=== PATIENT | male | born 1940 | race Caucasian/White ===

== ENCOUNTER → 2020-07-29 08:22 | Outpatient (REF) | payer MEDICARE, OTHER, SELFPAY ==
--- NOTE | 2020-07-29 | NM_ITS ---
EXERCISE MYOCARDIAL PERFUSION STUDY INDICATION: NSVT, pacemaker, assess for coronary disease and ischemia TECHNIQUE: The patient was brought in for an exercise perfusion study on 07/29/2020. Patient performed exercise as per Ralph protocol and was injected 40 mCi of sestamibi once target heart rate was achieved. Images were obtained using the SPECT gamma camera interlaced with the gating device. Images were obtained in supine position. Resting perfusion study was performed on 07/30/2020. Patient was administered 40 mCi of sestamibi intravenously at rest. Images were then obtained in supine position. Total DLP 77mGy-cm. Images were processed with the software and compared side to side in short axis, horizontal long axis and vertical long axis views. FINDINGS: Raw images were reviewed. The stress perfusion study showed diminished tracer uptake along the inferior wall. With CT attenuation correction this seems to improve significantly suggestive of diaphragmatic attenuation artifact. The gated study shows normal LV systolic function with calculated LVEF of 67%. LV cavity is normal in size. The gated study shows normal wall thickening and contraction of segments. Resting study shows diminished tracer uptake along the inferior wall but improvement with CT attenuation correction suggesting definite hepatic artifact. Gating at rest reveals normal wall motion with ejection fraction at 63%. The findings are consistent with no reversible defects. Fixed inferior wall defect likely from traumatic artifact. IMPRESSION: 1. Myocardial perfusion imaging study shows no evidence of any ischemia. Fixed inferior perfusion defect likely from diaphragmatic attenuation artifact. 2. Gated LVEF is 67% during stress and 63% during rest. 3. Transient ischemic dilatation not present. EKG component of the test reported separately.
--- NOTE | 2020-07-29 08:34 | CA_ITS ---
Transthoracic Echocardiogram Patient (Last, First, Middle): Ricardo Singh S Gender: Male Date of : 1940 Age: 79 Procedure Date: 07/29/2020 Procedure Type: Transthoracic Echocardiogram Location: OP Height: 187.96 cm Weight: 108.86 kg BSA: 2.35 m2 Heart Rate: bpm BP: 118 / 62 mmHg Answering Service Telephone Operator: DUNG Referring MD: Jade Chowdary MEAT SMOKERBarbie Symptoms: -147.2 NSVT(nonsustained ventricular tachycardia Study Quality: Fair ECG Rhythm: Sinus Conclusions: - The left ventricular systolic function is normal. The visually estimated ejection fraction is between 60-65%. - There is mild calcification of the aortic valve. - No obvious valvular pathology seen on this study. Findings Left Ventricle Normal left ventricular cavity size. There is normal left ventricular wall thickness. The left ventricular systolic function is normal. The visually estimated ejection fraction is between 60-65%. There is no evidence of regional wall motion abnormalities. Diastolic function is normal for age. Right Ventricle Normal right ventricular cavity size and systolic function. Atria The left atrium is normal in size. The right atrium is normal in size. Aortic Valve There is a normal trileaflet aortic valve. There is mild calcification of the aortic valve. There is no aortic valve stenosis. There is no aortic valve regurgitation. Mitral Valve The mitral valve appears normal. There is trace mitral valve regurgitation. There is no mitral valve stenosis. Pulmonic Valve The pulmonic valve was not well visualized. Tricuspid Valve Normal tricuspid valve structure. There is trace tricuspid valve regurgitation. The pulmonary artery systolic pressure is normal. Great Vessels The aortic annulus, sinuses of valsalva, and asc aorta are normal in size. Venous The inferior vena cava was not well visualized. Pericardium/Pleural There is no evidence of pericardial effusion. Prior Study Comparison No significant change compared to prior study dated: 02/20/2017. Recommendations, Care & Conclusions No obvious valvular pathology seen on this study. Measurements 2D Linear Measurements IVSd: 1.00 0.6-0.9/0.6-1.0 cm LVIDd: 4.68 3.9-5.3/4.2-5.9 cm LVIDd Index: 1.99 2.4-3.2/2.2-3.1 cm/m2 LVIDs: 3.16 2.0-3.6 cm LVPWd: 1.08 0.7-1.1 cm LA Diam: 3.50 2.7-3.8/3.0-4.0 cm LAIDs Index: 1.49 1.5-2.3 cm/m2 LV Mass: 214.10 67-162/88-224 g LV Mass Index: 91.11 43-95/49-115 g/m2 LVOT Diam: 2.00 3.0+(-)1.3 cm 2D Systolic Function EF 4C: 73.70 >55% Mitral Valve MV Pk E: 0.57 MV PK A: 0.79 MV Decel Time: 237.00 E/A: 0.70 E'Lateral: 7.74 E'Medial: 6.09 E/E' Med: 9.40 E/E' Lat: 7.40 PHT: 70.00 MVA PHT: 3.14 Decel [place]: 2.41 Aortic Valve AoV Pk Jim: 1.85 AoV Pk Grad: 14.00 LVOT LVOT Pk Jim: 1.08 LVOT Mn Jim: 0.68 LVOT VTI: 0.20 LVOT Pk Grad: 5.00 LVOT Mn Grad: 2.00 LVOT Diam: 2.00 LVOT Area: 3.14 Diastolic Function MV Pk E: 0.57 MV Pk A: 0.79 E/A: 0.70 E'Medial: 6.09 E/E' Med: 9.40 E' Laterial: 7.74 E/E' Lat: 7.40 Tricuspid Valve TR Pk Jim: 2.04 TR Pk Grad: 17.00 RA Press: 3.00 RVSP: 20.00 Great Vessels Aorta Ao Asc: 3.80 2.1-3.4 cm Updated in Other Vendor System with Status of Final Victorino Uriostegui MD electronically signed on 07/30/2020 4:15:45 PM with status of Final
--- NOTE | 2020-07-29 08:35 | CA_ITS ---
Acquisition Time: 2020-07-29 09:33:41 Total Exercise Time: 00:04:50 Test Indications: Abnormal ECG Medications: LISINOPRIL SIMVASTATIN ALLOPURINOL Protocol: JAYLEEN Max HR: 125 BPM 88% of Pred: 141 BPM Max BP: 144/082 mmHG Max Work Load: 4.5 METS Exercise stress nuclear using Jayleen protocol. Second stage held and incline reduced. 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 Pt tolerated well, denies any anginal sx. EKG with RBBB, no pacing noted. Occ. PVC's seen during exercise (asymptomatic) None in recovery. No ischemic changes seen. Nuclear images to follow. Normotensive response to test. Test reviewed with Dr. Uriostegui Referred By: Jade Chowdary Overread By: Cassie Mckinnon
== END ==
LOC: HO.CARD 08:22
PROVIDERS: PCP Internal Medicine; Visit Provider Nurse Practitioner Family
DX: I47.2 Ventricular tachycardia (principal)
CPT/HCPCS: 78452; 93017; 93306; A9500

== ENCOUNTER 2020-10-25 08:26 | Outpatient (REF) | payer MEDICARE, OTHER, SELFPAY ==
[2020-10-25 10:10] LABS: MANUAL DIFF FLAG NO
[2020-10-25 10:23] LABS: Basophils Percent Auto 0.3 % (0-2); Eosinophils Absolute Auto 0.4 X10*3/uL (0.0-0.4); Eosinophils Percent Auto 5.9 % (0-4); Hemoglobin 14.9 g/dl (14.0-18.0); Imm Gran Abs Auto 0.07 X10*3/uL (0.00-0.03); Imm Gran Pct Auto 1.1 % (0.0-0.4); Lymphocytes Absolute Auto 1.7 X10*3/uL (1.2-4.9); Lymphocytes Percent Auto 26.1 % (20-40); Mean Corpuscular HGB Conc 33.1 g/dl (31.0-36.0); Mean Corpuscular Hemoglobin 31.9 pg (27.0-33.0); Mean Corpuscular Volume 96.4 fL (80-98); Mean Platelet Volume 10.5 fL (9.4-12.4); Monocytes Absolute Auto 0.5 X10*3/uL (0.1-1.2); Monocytes Percent Auto 7.3 % (2-11); Neutrophils Absolute Auto 3.8 X10*3/uL (2.0-8.3); Neutrophils Percent Auto 59.3 % (45-73); Platelet Count 244 X10*3/uL (160-400); Red Blood Count 4.67 X10*6/uL (4.60-5.80); Red Cell Distribution Width 13.2 % (11.0-16.0); White Blood Count 6.5 X10*3/uL (4.8-10.8)
[2020-10-25 10:33] LABS: Estimated Average Glucose 111 mg/dL; Hemoglobin A1c % 5.5 %
[2020-10-25 10:54] LABS: Creatinine Urine 155.24 mg/dL
[2020-10-25 11:03] LABS: Alanine Aminotransferase 44 U/L (0-40); Alkaline Phosphatase 73 U/L (39-117); Anion Gap 12 (12-20); Aspartate Amino Transferase 25 U/L (5-37); Bilirubin Total 0.9 mg/dL (0.0-1.0); Blood Urea Nitrogen 26 mg/dL (9-16); Calcium 8.8 mg/dL (8.4-10.2); Carbon Dioxide 22 mmol/L (22-29); Chloride 110 mmol/L (96-108); Cholesterol 139 mg/dL; Estimated Glomerular Filt Rate > 60; Glucose Fasting 114 mg/dL (60-99); HDL Cholesterol 39 mg/dL; LDL Cholesterol Calculated 77 mg/dl; Potassium 4.4 mmol/l (3.3-5.1); Sodium 140 mmol/L (135-145); Total Protein 6.8 g/dL (6.5-8.0); Triglycerides 117 mg/dL
== END 2020-10-25 08:27 | disposition home or self-care (01) ==
LOC: HO.LAB 08:26
PROVIDERS: PCP Internal Medicine; Visit Provider Internal Medicine
DX: I10 Essential (primary) hypertension (principal); E78.2 Mixed hyperlipidemia; R73.9 Hyperglycemia, unspecified; N40.0 Benign prostatic hyperplasia without lower urinary tract symptoms
CPT/HCPCS: 36415; 80053; 80061; 82043; 83036; 85025

== ENCOUNTER → 2020-12-20 13:42 | Outpatient (BNVA) | payer MEDICARE, OTHER, SELFPAY | PROVIDERS: PCP Internal Medicine; Visit Provider Internal Medicine | DX: Z45.018 Encounter for adjustment and management of other part of cardiac pacemaker (principal); I10 Essential (primary) hypertension; I47.2 Ventricular tachycardia | CPT/HCPCS: 93005; 99212 ==

== ENCOUNTER 2021-04-26 06:52 | Outpatient (REF) | payer MEDICARE, OTHER, SELFPAY ==
[2021-04-26 08:45] LABS: Estimated Average Glucose 117 mg/dL; Hemoglobin A1c % 5.7 %
[2021-04-26 08:57] LABS: Alanine Aminotransferase 49 U/L (0-40); Albumin Level 3.9 g/dL (3.5-5.0); Alkaline Phosphatase 73 U/L (39-117); Anion Gap 14 (12-20); Aspartate Amino Transferase 30 U/L (5-37); Bilirubin Total 1.2 mg/dL (0.0-1.0); Blood Urea Nitrogen 18 mg/dL (9-16); Calcium 9.2 mg/dL (8.4-10.2); Carbon Dioxide 21 mmol/L (22-29); Chloride 109 mmol/L (96-108); Cholesterol 124 mg/dL; Estimated Glomerular Filt Rate 55; Glucose Fasting 112 mg/dL (60-99); HDL Cholesterol 33 mg/dL; LDL Cholesterol Calculated 71 mg/dl; Potassium 4.6 mmol/L (3.3-5.1); Sodium 139 mmol/L (135-145); Total Protein 6.7 g/dL (6.5-8.0); Triglycerides 101 mg/dL
== END 2021-04-26 06:53 | disposition home or self-care (01) ==
LOC: HO.LAB 06:52
PROVIDERS: PCP Internal Medicine; Visit Provider Internal Medicine
DX: I10 Essential (primary) hypertension (principal); E78.5 Hyperlipidemia, unspecified; M10.9 Gout, unspecified; R73.9 Hyperglycemia, unspecified; Z87.19 Personal history of other diseases of the digestive system
CPT/HCPCS: 36415; 80053; 80061; 83036

== ENCOUNTER 2021-11-08 08:24 | Outpatient (REF) | payer MEDICARE, OTHER, SELFPAY ==
[2021-11-08 09:18] LABS: Estimated Average Glucose 114 mg/dL; Hemoglobin A1c % 5.6 %
[2021-11-08 09:37] LABS: Alanine Aminotransferase 74 U/L (0-40); Albumin Level 3.7 g/dL (3.5-5.0); Alkaline Phosphatase 77 U/L (39-117); Anion Gap 11 (12-20); Aspartate Amino Transferase 44 U/L (5-37); Bilirubin Total 1.1 mg/dL (0.0-1.0); Blood Urea Nitrogen 21 mg/dL (9-16); Calcium 9.1 mg/dL (8.4-10.2); Carbon Dioxide 22 mmol/L (22-29); Chloride 112 mmol/L (96-108); Cholesterol 136 mg/dL; Estimated Glomerular Filt Rate 53; Glucose Fasting 124 mg/dL (60-99); HDL Cholesterol 32 mg/dL; LDL Cholesterol Calculated 85 mg/dl; Potassium 4.3 mmol/L (3.3-5.1); Sodium 141 mmol/L (135-145); Total Protein 6.8 g/dL (6.5-8.0); Triglycerides 99 mg/dL
== END 2021-11-08 08:25 | disposition home or self-care (01) ==
LOC: HO.LAB 08:24
PROVIDERS: PCP Internal Medicine; Visit Provider Internal Medicine
DX: E78.5 Hyperlipidemia, unspecified (principal); I10 Essential (primary) hypertension; R73.9 Hyperglycemia, unspecified
CPT/HCPCS: 36415; 80053; 80061; 83036

== ENCOUNTER 2021-12-13 07:57 | Outpatient (REF) | payer MEDICARE, OTHER, SELFPAY ==
[2021-12-13 09:28] LABS: Alanine Aminotransferase 71 U/L (0-40); Albumin Level 3.8 g/dL (3.5-5.0); Alkaline Phosphatase 75 U/L (39-117); Aspartate Amino Transferase 45 U/L (5-37); Bilirubin Direct 0.4 mg/dL (0.0-0.5); Bilirubin Total 1.1 mg/dL (0.0-1.0); Total Protein 6.7 g/dL (6.5-8.0)
[2021-12-13 09:41] LABS: Uric Acid 5.7 mg/dL (3.4-7.0)
== END 2021-12-13 07:58 | disposition home or self-care (01) ==
LOC: HO.LAB 07:57
PROVIDERS: PCP Internal Medicine; Visit Provider Internal Medicine
DX: E78.5 Hyperlipidemia, unspecified (principal); I10 Essential (primary) hypertension; R73.9 Hyperglycemia, unspecified
CPT/HCPCS: 36415; 80076; 84550

== ENCOUNTER 2021-12-15 08:50 | Outpatient (REF) | payer MEDICARE, OTHER, SELFPAY ==
--- NOTE | ~2021-12-15 | US_ITS ---
EXAMINATION: US ABDOMEN COMPLETE CLINICAL INFORMATION: Hyperlipidemia, unspecified. COMPARISON: None TECHNIQUE: Real-time imaging of the abdominal viscera. FINDINGS: PANCREAS: Not well visualized. ABDOMINAL AORTA: There is evidence of atherosclerotic disease. The abdominal aorta is not well visualized. INFERIOR VENA CAVA: Not well visualized. LIVER: The liver is enlarged. Liver echotexture is increased probably representing fatty infiltration. The liver contour is normal. No focal hepatic lesion. There is no intrahepatic biliary duct dilatation seen. GALLBLADDER: Normal. The gallbladder is physiologically distended without evidence of stones, sludge, polyps, wall thickening or pericholecystic fluid. COMMON BILE DUCT: Normal in caliber measuring 0.5 cm in diameter. RIGHT KIDNEY: Normal. No hydronephrosis. No renal calculi or focal parenchymal lesions. The kidney measures 11.0 cm in maximum dimension. LEFT KIDNEY: Normal. No hydronephrosis. No renal calculi or focal parenchymal lesions. The kidney measures 12.0 cm in maximum dimension. SPLEEN: Normal. The spleen measures 10.0 cm in maximum dimension. FREE FLUID: None. US/US abdomen complete IMPRESSION: Enlarged echogenic liver probably representing fatty infiltration. Limited visualization of the pancreas, aorta and IVC.
== END 2021-12-15 08:51 | disposition home or self-care (01) ==
LOC: HO.US 08:50
PROVIDERS: PCP Internal Medicine; Visit Provider Internal Medicine
DX: E78.5 Hyperlipidemia, unspecified (principal); I10 Essential (primary) hypertension; R73.9 Hyperglycemia, unspecified
CPT/HCPCS: 76700

== ENCOUNTER → 2022-01-23 11:59 | Outpatient (BNVA) | payer MEDICARE, OTHER, SELFPAY | PROVIDERS: PCP Internal Medicine; Referring Provider Internal Medicine; Visit Provider Internal Medicine | DX: I45.2 Bifascicular block (principal); I47.2 Ventricular tachycardia; I10 Essential (primary) hypertension; Z45.018 Encounter for adjustment and management of other part of cardiac pacemaker | CPT/HCPCS: 93005; 99212 ==

== ENCOUNTER 2022-05-01 07:17 | Outpatient (REF) | payer MEDICARE, OTHER, SELFPAY ==
[2022-05-01 08:06] LABS: Hematocrit 42.9 % (42.0-52.0); Hemoglobin 14.1 g/dl (14.0-18.0); Mean Corpuscular HGB Conc 32.9 g/dl (31.0-36.0); Mean Corpuscular Hemoglobin 32.3 pg (27.0-33.0); Mean Corpuscular Volume 98.2 fL (80.0-98.0); Mean Platelet Volume 10.7 fL (9.4-12.4); Platelet Count 230 X10*3/uL (160-400); Red Blood Count 4.37 X10*6/uL (4.60-5.80); Red Cell Distribution Width 14.6 % (11.0-16.0)
[2022-05-01 08:13] LABS: Estimated Average Glucose 105 mg/dL; Hemoglobin A1c % 5.3 %
[2022-05-01 08:37] LABS: Alanine Aminotransferase 49 U/L (0-40); Albumin Level 3.8 g/dL (3.5-5.0); Alkaline Phosphatase 84 U/L (39-117); Anion Gap 11 (12-20); Aspartate Amino Transferase 31 U/L (5-37); Bilirubin Total 0.6 mg/dL (0.0-1.0); Blood Urea Nitrogen 20 mg/dL (9-16); Calcium 8.9 mg/dL (8.4-10.2); Carbon Dioxide 23 mmol/L (22-29); Chloride 109 mmol/L (96-108); Estimated Glomerular Filt Rate 55; Glucose Fasting 113 mg/dL (60-99); Potassium 4.6 mmol/L (3.3-5.1); Sodium 138 mmol/L (135-145); Total Protein 6.7 g/dL (6.5-8.0)
== END 2022-05-01 07:18 | disposition home or self-care (01) ==
LOC: HO.LAB 07:17
PROVIDERS: PCP Internal Medicine; Visit Provider Internal Medicine
DX: I10 Essential (primary) hypertension (principal); R73.9 Hyperglycemia, unspecified; E78.5 Hyperlipidemia, unspecified
CPT/HCPCS: 36415; 80053; 83036; 85027

== ENCOUNTER 2022-10-18 07:39 | Outpatient (REF) | payer MEDICARE, OTHER, SELFPAY ==
[2022-10-18 08:22] LABS: Estimated Average Glucose 103 mg/dL; Hemoglobin A1c % 5.2 %
[2022-10-18 08:57] LABS: Alanine Aminotransferase 48 U/L (0-40); Albumin Level 3.9 g/dL (3.5-5.0); Alkaline Phosphatase 79 U/L (39-117); Anion Gap 12 (12-20); Aspartate Amino Transferase 31 U/L (5-37); Bilirubin Total 0.8 mg/dL (0.0-1.0); Blood Urea Nitrogen 24 mg/dL (9-16); Carbon Dioxide 24 mmol/L (22-29); Chloride 110 mmol/L (96-108); Cholesterol 130 mg/dL; Estimated Glomerular Filt Rate 53; Glucose Fasting 132 mg/dL (60-99); HDL Cholesterol 36 mg/dL; LDL Cholesterol Calculated 78 mg/dl; Potassium 4.6 mmol/L (3.3-5.1); Sodium 141 mmol/L (135-145); Total Protein 6.6 g/dL (6.5-8.0); Triglycerides 81 mg/dL; Uric Acid 5.6 mg/dL (3.4-7.0)
== END 2022-10-18 07:40 | disposition home or self-care (01) ==
LOC: HO.LAB 07:39
PROVIDERS: PCP Internal Medicine; Visit Provider Internal Medicine
DX: I10 Essential (primary) hypertension (principal); R73.9 Hyperglycemia, unspecified; E78.5 Hyperlipidemia, unspecified
CPT/HCPCS: 36415; 80053; 80061; 83036; 84550

== ENCOUNTER → 2023-01-22 12:54 | Outpatient (BNVA) | payer MEDICARE, OTHER, SELFPAY | PROVIDERS: PCP Internal Medicine; Referring Provider Internal Medicine; Visit Provider Internal Medicine | DX: Z45.018 Encounter for adjustment and management of other part of cardiac pacemaker (principal); I45.10 Unspecified right bundle-branch block; I10 Essential (primary) hypertension; I47.20 Ventricular tachycardia, unspecified | CPT/HCPCS: 93005; 93280; 99212 ==

== ENCOUNTER 2023-04-19 07:57 | Outpatient (REF) | payer MEDICARE, OTHER, SELFPAY ==
[2023-04-19 09:09] LABS: Estimated Average Glucose 108 mg/dL; Hemoglobin A1c % 5.4 %
[2023-04-19 09:48] LABS: Alanine Aminotransferase 49 U/L (0-40); Albumin Level 3.6 g/dL (3.5-5.0); Alkaline Phosphatase 73 U/L (39-117); Anion Gap 10 (12-20); Aspartate Amino Transferase 31 U/L (5-37); Bilirubin Total 0.9 mg/dL (0.0-1.0); Blood Urea Nitrogen 25 mg/dL (9-16); Calcium 9.4 mg/dL (8.4-10.2); Carbon Dioxide 19 mmol/L (22-29); Chloride 115 mmol/L (96-108); Estimated Glomerular Filt Rate > 60; Glucose Fasting 121 mg/dL (60-99); Potassium 4.4 mmol/L (3.3-5.1); Sodium 140 mmol/L (135-145); Total Protein 6.7 g/dL (6.5-8.0); Uric Acid 5.6 mg/dL (3.4-7.0)
== END 2023-04-19 07:58 | disposition home or self-care (01) ==
LOC: HO.LAB 07:57
PROVIDERS: PCP Internal Medicine; Visit Provider Internal Medicine
DX: E78.5 Hyperlipidemia, unspecified (principal); I10 Essential (primary) hypertension; R73.9 Hyperglycemia, unspecified
CPT/HCPCS: 36415; 80053; 83036; 84550

== ENCOUNTER 2023-05-04 08:17 | Outpatient (AMB) | payer MEDICARE, OTHER, SELFPAY ==
--- NOTE | 2023-05-04 08:24 | MHC.PC.OV ---
Vital Signs 05/04/23 08:25 Height 6 ft 2 in Weight 252 lb BMI 32.4 BP 106/62 Blood Pressure Location Rt brachial Position Sitting Pulse 76 Pulse Source Pulse Oximeter Pulse Oximetry (%) 95 Oxygen Delivery Method Room Air Intake Visit Reasons: 6 month follow up Intake Note: Pt is here today for 6 months follow up visit. Allergies nut - unspecified [NUTS] Allergy (Unknown, Verified 05/04/23 08:26) ANAPHYLAXIS Medication List - Last Reconciled 05/04/23 by Eden Self MD allopurinol 200 mg (2 x 100 mg) PO DAILY lisinopril 10 mg PO DAILY simvastatin 5 mg PO BEDTIME Tobacco use date assessed: 10/24/22 Fall risk assessment: No Falls in past year Last assessed Fall Risk: 05/04/23 Dental Screening Dental Screen Date: 05/04/23 Did you have a dental visit in the last 12 months?: Yes Did you have a dental problem in the last 6 months where you did not have access to dental care?: No Was dental information given to patient?: Patient has dentist HPI 6 month follow up HPI Details Patient presents for the follow-up on hypertension hyperlipidemia, stable on current medications. [facility] Medical History (Updated 05/04/23 @ 08:48 by Eden Self MD) Elevated LFTs Essential hypertension Gout History of GI bleed HTN (hypertension) Hyperlipidemia Normally functioning cardiac pacemaker present Surgical History History of permanent cardiac pacemaker placement (~01/2016) Family History Father No problems noted. Mother No problems noted. Social History Housing: House Alcohol intake: current Alcohol intake frequency: a few times a week Patient Tobacco Use Status: Current everyday Tobacco user Tobacco use type: Cigar e-Cigarette/Vaping Use: Never Used Current occupational status: retired Current occupational exposures/hazards: No Cognitive needs: No Hearing needs: No Vision needs: Yes Questionnaire Thrive Questionnaire Date Thrive assessed: 10/24/22 HARDIK-7 AMB Questionnaire HARDIK-7 Date HARDIK - 7 assessed: 10/24/22 Source: Developed by Drs. Pancho Diop, Mindy Walton, Trent Soria and colleagues, with an educational carrie from [employer]. Review of Systems Const All systems reviewed & are unremarkable except as noted in HPI and below Reports no additional complaints Eyes Reports no additional complaints ENT Reports no additional complaints Card Reports no additional complaints Resp Reports no additional complaints GI Reports no additional complaints Reports no additional complaints Physical exam (Primary Care) Vital Signs: Last Vital Signs Pulse 76 05/04/23 08:25 BP 106/62 05/04/23 08:25 Pulse Ox 95 05/04/23 08:25 Oxygen Delivery Method Room Air 05/04/23 08:25 BMI result Body Mass Index 32.4 Tobacco/Smoking Status: Tobacco use Status Tobacco use date assessed 10/24/22 05/04/23 08:31 Patient Tobacco Use Status Current everyday Tobacco 05/04/23 08:31 Tobacco use type Cigar 05/04/23 08:31 e-Cigarette/Vaping Use Never Used 05/04/23 08:31 Thrive Assessment: Date of Thrive Assessment Date Thrive assessed 10/24/22 05/04/23 08:31 HENMT Head: Yes normal to inspection Ears: hearing grossly normal bilaterally General nose exam: Normal external nose present Throat: Yes posterior oropharynx normal Neck Neck: Yes supple Resp Effort & Inspection: normal respiratory effort Auscultation: clear to auscultation bilaterally Cardio Rhythm: regular rhythm Heart sounds: S1 normal heart sound present and S2 normal heart sound present GI Inspection: Yes normal to inspection Palpation (GI): Soft to palpation Percussion: Yes normal to percussion Auscultation: normal bowel sounds Assessment and Plan Assessment & Plan (1) Callus of foot: Code(s): L84 - Corns and callosities Plan: Referred to manager of data (2) Hyperlipidemia: Code(s): E78.5 - Hyperlipidemia, unspecified Plan: Continue statin (3) Essential hypertension: Code(s): I10 - Essential (primary) hypertension Plan: Continue lisinopril (4) Hyperglycemia: Code(s): R73.9 - Hyperglycemia, unspecified Plan: A1c is 5.4, continue ADA diet follow-up in 6 months with a fasting labs before (5) Gout: Code(s): M10.9 - Gout, unspecified Plan: Continue allopurinol Orders: Orders Comprehensive [facility]erman. Panel Fast 6 Months E78.5 - Hyperlipidemia, unspecified, I10 - Essential (primary) hypertension, R73.9 - Hyperglycemia, unspecified Hemoglobin A1c 6 Months E78.5 - Hyperlipidemia, unspecified, I10 - Essential (primary) hypertension, R73.9 - Hyperglycemia, unspecified Lipid Panel 6 Months E78.5 - Hyperlipidemia, unspecified, I10 - Essential (primary) hypertension, R73.9 - Hyperglycemia, unspecified Complete Blood Count Auto Diff 6 Months E78.5 - Hyperlipidemia, unspecified, I10 - Essential (primary) hypertension, R73.9 - Hyperglycemia, unspecified Referrals Podiatry Referral L84 - Corns and callosities Coding Level of Care Code Est Pt Level 3 (17400) Diagnoses Callus of foot L84 Hyperlipidemia E78.5 Essential hypertension I10 Hyperglycemia R73.9 Gout M10.9
[2023-05-04 08:25] VITALS: BP 106/62; PULSE 76; O2SAT 95; BMI 32.4
== END 2023-05-04 08:56 | disposition home or self-care (01) ==
PROVIDERS: Visit Provider Internal Medicine
DX: L84 Corns and callosities (principal); E78.5 Hyperlipidemia, unspecified; I10 Essential (primary) hypertension; R73.9 Hyperglycemia, unspecified; M10.9 Gout, unspecified
CPT/HCPCS: 99213

== ENCOUNTER → 2023-05-23 23:59 | Outpatient (BNV) | payer MEDICARE, OTHER, SELFPAY ==
--- NOTE | 2023-05-26 13:58 | MHC.OFFVIS ---
Intake Intake Visit Reasons: Remote Device Check-[facility] Allergies nut - unspecified [NUTS] Allergy (Unknown, Verified 05/04/23 08:26) ANAPHYLAXIS [facility] Medical History (Updated 05/04/23 @ 08:48 by Eden Self MD) Elevated LFTs Essential hypertension Gout History of GI bleed HTN (hypertension) Hyperlipidemia Normally functioning cardiac pacemaker present Surgical History History of permanent cardiac pacemaker placement (~01/2016) Family History Father No problems noted. Mother No problems noted. Social History Housing: House Alcohol intake: current Alcohol intake frequency: a few times a week Patient Tobacco Use Status: Current everyday Tobacco user Tobacco use type: Cigar e-Cigarette/Vaping Use: Never Used Current occupational status: retired Current occupational exposures/hazards: No Cognitive needs: No Hearing needs: No Vision needs: Yes Office Procedures Cardiac Device Check Cardiac Device Check Details: Date of service- 05/23/2023 ; Battery life >3 years; normal lead parameters; AP 19%; [employer] 22%; brief sinus/atrial tachycardia; one high V rate for 5 beats. Overall normal device function. [id number] Cardiac Device Interrogation, pacemaker Procedure code (CPT) selection complete Assessment & Plan Assessment & Plan (1) Heart block: Code(s): I45.9 - Conduction disorder, unspecified (2) Normally functioning cardiac pacemaker present: Code(s): Z95.0 - Presence of cardiac pacemaker Coding Level of Care Code Procedure Only Diagnoses Heart block I45.9 Normally functioning cardiac pacemaker present Z95.0 CPT Codes Cardiac Device Check - Cardiac Device 12: [id number] Cardiac Device Interrogation, pacemaker ([id number])
== END ==
PROVIDERS: PCP Internal Medicine; Visit Provider Internal Medicine
DX: I45.9 Conduction disorder, unspecified (principal); Z95.0 Presence of cardiac pacemaker
CPT/HCPCS: 93294

== ENCOUNTER 2023-06-07 10:15 | Emergency (ER) | payer MEDICARE, OTHER, SELFPAY ==
[2023-06-07 11:49] VITALS: BP 148/86; PULSE 84; RESP 16; TEMP 36.6; O2SAT 97; BMI 32.6
--- NOTE | 2023-06-07 11:49 | ED_ITS ---
HPI - Skin/Abscess/Foreign Bdy General Chief complaint: Skin/Abscess/Foreign Body Stated complaint: Cyst on back Time Seen by Provider: 06/07/23 14:25 Source: patient Mode of arrival: ambulatory Limitations: no limitations History of Present Illness HPI narrative: Patient is an 82 year old male presenting with his for a cyst on his midback that he first noticed one week ago.? Patient has a history of cysts.? explains that they were concerned due to the size and color of the cyst as his previous ones have not been that big or red.? ? No fevers, chills, numbness, tingling, nausea, vomiting Related Data Previous Rx's Medication Instructions Recorded simvastatin 5 mg tablet 5 mg PO BEDTIME #90 tabs 05/05/22 allopurinol 100 mg tablet 200 mg PO DAILY #180 tabs 05/31/23 lisinopril 10 mg tablet 10 mg PO DAILY #90 tabs 05/31/23 cephalexin 500 mg tablet 500 mg PO Q6H 10 days #40 tabs 06/07/23 doxycycline hyclate 100 mg capsule 100 mg PO BID 10 days #20 caps 06/07/23 Allergies Allergy/AdvReac Type Severity Reaction Status Date / Time nut - unspecified [NUTS] Allergy Unknown ANAPHYLAXIS Verified 05/04/23 08:26 Review of Systems Review of Systems: Constitutional : No Weight loss, No Fever, No Chills, No Fatigue, No Malaise ENT/Mouth : No sore throat, No Rhinorrhea Eyes: No Eye Pain, No Swelling, No Redness Cardiovascular : No Chest Pain, No SOB, No Dyspnea on Exertion, No Orthopnea, No Edema, No Palpitations Respiratory : No Cough, No Sputum, No Wheezing Gastrointestinal : No Nausea, No Vomiting, No Diarrhea, No Constipation, No abdominal Pain, No Hematochezia, No Melena Genitourinary : No Dysuria, No Urinary Frequency, No Hematuria, Musculoskeletal : No joint pain, No Myalgias, No Joint Swelling Skin : +red, drainging cyst on the back, No rash Neuro : No Weakness, No Numbness, No Dizziness, No Headache Psych : No Anxiety/Panic, No Depression Yes all other systems are reviewed and are negative [facility] Past Medical History Attestation statement: The following information was validated with the patient. Source: old records reviewed and nursing notes reviewed Medical History Elevated LFTs Essential hypertension Gout History of GI bleed HTN (hypertension) Hyperlipidemia Normally functioning cardiac pacemaker present Surgical History History of permanent cardiac pacemaker placement (~01/2016) Family History Family History Father No problems noted. Mother No problems noted. Social History Social History Housing: House Alcohol intake: current Alcohol intake frequency: a few times a week Patient Tobacco Use Status: Current everyday Tobacco user Tobacco use type: Cigar e-Cigarette/Vaping Use: Never Used Advance Directives: No Current occupational status: retired Current occupational exposures/hazards: No Cognitive needs: No Hearing needs: No Vision needs: Yes Physical Exam Vital Signs: Vital Signs: Last Vital Signs Temp 97.9 F 06/07/23 11:49 Pulse 93 06/07/23 16:33 Resp 18 06/07/23 16:33 BP 164/89 H 06/07/23 16:33 Pulse Ox 97 06/07/23 16:33 O2 Del Method Room Air 06/07/23 16:33 BMI result Body Mass Index 32.6 vss Appearance: Alert.? Oriented X3.? No acute distress.? Head:? Normocephalic, atraumatic, no step-offs or deformities Eyes: Pupils equal, round and reactive to light.? ENT: Pharynx normal.? Neck: Normal inspection.? Neck supple.? CVS: Normal heart rate and rhythm.? Pulses normal.? Respiratory: No respiratory distress.? Breath sounds normal.? Abdomen: Soft and nontender.? Skin: Raised, erythematous 4x3 cm abscess that is draining purulent discharge noted on the midback.? Skin warm and dry.? Normal skin turgor.? Extremities: No lower extremity edema.? No calf ttp.? 5/5 strength to bilateral upper and lower extremities Back:? No midline tenderness, no C-spine tenderness, full range of motion, no CVA tenderness bilaterally Neuro: Oriented X 3.? No motor deficit.? No sensory deficit. CN 2-12 intact Course Course Course Narrative: RME: 82yo M w/PMHx RBBB, NSVT, HLD, Gout, HTN, c/o leaking boil on back x1 week that opened last night w/weeping & bleeding. denies fever +fluctuant abscess noted to L mid back with active drainage, w/surrounding erythema. needs I&D Lidocaine ordered Full HPI, ROS and PE to be performed by primary ED provider. Reevaluation(s) Reevaluation #1: EKG obtained, showing right bundle-branch block, ventricular rate of 96, RI normal, QRS normal, QT / QTC normal. Sinus arrhythmia also noted on EKG. No ST elevations or inversions concerning for ischemia. Patient has history of right bundle-branch block. Patient no longer shaky feeling better. I suspect this was a reaction secondary to significant pain from incision and drainage. Time: 16:38 Reevaluation #2: Educated patient on diagnosis and treatment plan, answered all question, patient verbalizes understanding. At this time patient will be discharged home, advised to return with new or worsening symptoms. Educated on worrisome signs and symptoms and when to return. At this time I feel comfortable discharge home. Time: 16:40 Medications Administered Discontinued Medications Generic Name Dose Route Start Last Admin Trade Name Freq PRN Reason Stop Dose Admin Diphtheria/Tetanus/Acell Pertussis 0.5 ml 06/07/23 15:33 06/07/23 16:14 Diphth,Pertus(Acell),Tet Adult 0.5 Ml Syringe IM 06/07/23 15:34 0.5 ml .ONCE ONE Administration Medical Decision Making Medical Decision Making MDM Narrative: 82 year old male presenting for 4x3cm cyst on midback. Exam significant for erythematous, raised cyst on the midback that is draining purulent discharge. This is likely an abscess.? Unlikely cyst or lipoma due to purulent drainage.? Unlikely nercotizing infection, SJS,TEN Plan: incision and drainage, Keflex and doxycycline Fine needle aspiration performed and minimal drainage was collected.? An incision and drainage was then performed with an 11 blade with mild/ moderate amount of drainage. Patient began to shake after likely secondary to pain EKG ordered.? Differential Diagnosis Differential Diagnoses: The differential diagnosis associated with the presentation includes This is likely an abscess.? Unlikely cyst or lipoma due to purulent drainage. Unlikely nercotizing infection, SJS,TEN Admission/Observation Consideration of admission/observation: Escalation of care including admission/observation considered No indication Independent Interpretation I performed an independent interpretation of an: EKG ( nonischemic refer to course for full details) Radiology Impression Discussion of test interpretation with radiology: I have reviewed the radiologist's reading. Core Measures AMI core measures followed: Yes Measure exclusions: not indicated Critical Care Time Critical Care Time Critical Care Time: No Discharge Plan Discharge Clinical Impression: Abscess of back Patient Disposition: Home, Self-Care Instructions: Abscess (ED), Abscess Incision and Drainage (DC) Additional Instructions: Take your medications as prescribed. If you were prescribed antibiotics today, it is important that you take your medication to their entirety, do not skip any doses, do not finish them early. Follow-up with your primary care provider this week. Return to the emergency department with new or worsening symptoms. Such as fevers, chills, chest pain, shortness of breath, nausea, vomiting, dizziness, headache, vision changes, lethargy In case of emergency call 911 Prescriptions: New doxycycline hyclate 100 mg capsule 100 mg PO BID 10 Days Qty: 20 0RF cephalexin 500 mg tablet 500 mg PO Q6H 10 Days Qty: 40 0RF No Action lisinopril 10 mg tablet 10 mg PO DAILY Qty: 90 3RF allopurinol 100 mg tablet 200 mg PO DAILY Qty: 180 3RF simvastatin 5 mg tablet 5 mg PO BEDTIME Qty: 90 3RF Referrals: Eden Self MD [Primary Care Provider] - 2 days Stand Alone Forms: Work/School Release
--- NOTE | 2023-06-07 14:38 | ED.GENADULT ---
HPI - General Adult General Chief complaint: Skin/Abscess/Foreign Body Stated complaint: Cyst on back Time Seen by Provider: 06/07/23 14:25 Source: patient Mode of arrival: ambulatory Limitations: no limitations History of Present Illness HPI narrative: Patient is an 82 year old male presenting with his for a cyst on his midback that he first noticed one week ago. Patient has a history of cysts. explains that they were concerned due to the size and color of the cyst as his previous ones have not been that big or red. No fevers, chills, numbness, tingling, nausea, vomiting Related Data Previous Rx's Medication Instructions Recorded simvastatin 5 mg tablet 5 mg PO BEDTIME #90 tabs 05/05/22 allopurinol 100 mg tablet 200 mg PO DAILY #180 tabs 05/31/23 lisinopril 10 mg tablet 10 mg PO DAILY #90 tabs 05/31/23 cephalexin 500 mg tablet 500 mg PO Q6H 10 days #40 tabs 06/07/23 doxycycline hyclate 100 mg capsule 100 mg PO BID 10 days #20 caps 06/07/23 Allergies Allergy/AdvReac Type Severity Reaction Status Date / Time nut - unspecified [NUTS] Allergy Unknown ANAPHYLAXIS Verified 05/04/23 08:26 Review of Systems Review of Systems: Constitutional : No Weight loss, No Fever, No Chills, No Fatigue, No Malaise ENT/Mouth : No sore throat, No Rhinorrhea Eyes: No Eye Pain, No Swelling, No Redness Cardiovascular : No Chest Pain, No SOB, No Dyspnea on Exertion, No Orthopnea, No Edema, No Palpitations Respiratory : No Cough, No Sputum, No Wheezing Gastrointestinal : No Nausea, No Vomiting, No Diarrhea, No Constipation, No abdominal Pain, No Hematochezia, No Melena Genitourinary : No Dysuria, No Urinary Frequency, No Hematuria, Musculoskeletal : No joint pain, No Myalgias, No Joint Swelling Skin : +red, drainging cyst on the back, No rash Neuro : No Weakness, No Numbness, No Dizziness, No Headache Psych : No Anxiety/Panic, No Depression All other systems reviewed and are negative Yes all other systems are reviewed and are negative PMFSH Past Medical History Attestation statement: The following information was validated with the patient. Source: old records reviewed and nursing notes reviewed Medical History Elevated LFTs Essential hypertension Gout History of GI bleed HTN (hypertension) Hyperlipidemia Normally functioning cardiac pacemaker present Surgical History History of permanent cardiac pacemaker placement (~01/2016) Family History Family History Father No problems noted. Mother No problems noted. Social History Social History Housing: House Alcohol intake: current Alcohol intake frequency: a few times a week Patient Tobacco Use Status: Current everyday Tobacco user Tobacco use type: Cigar e-Cigarette/Vaping Use: Never Used Advance Directives: No Current occupational status: retired Current occupational exposures/hazards: No Cognitive needs: No Hearing needs: No Vision needs: Yes Physical Exam ED Vital Signs: Vital Signs - 24 hr 06/07/23 11:49 Temperature 97.9 F Pulse Rate 84 Respiratory Rate 16 Blood Pressure 148/86 H Pulse Oximetry 97 BMI result Body Mass Index 32.6 VSS Appearance: Alert.? Oriented X3.? No acute distress.? Head: Normocephalic, atraumatic, no step-offs or deformities Eyes: Pupils equal, round and reactive to light.? ENT: Pharynx normal.? Neck: Normal inspection.? Neck supple.? CVS: Normal heart rate and rhythm.? Pulses normal.? Respiratory: No respiratory distress.? Breath sounds normal.? Abdomen: Soft and nontender.? Skin: Raised, erythematous 4x3 cm abscess that is draining purulent discharge noted on the midback. Skin warm and dry. Normal skin turgor.? Extremities: No lower extremity edema.? No calf ttp. 5/5 strength to bilateral upper and lower extremities Back: No midline tenderness, no C-spine tenderness, full range of motion, no CVA tenderness bilaterally Neuro: Oriented X 3.? No motor deficit.? No sensory deficit. CN 2-12 intact Medications Administered Discontinued Medications Generic Name Dose Route Start Last Admin Trade Name Freq PRN Reason Stop Dose Admin Diphtheria/Tetanus/Acell Pertussis 0.5 ml 06/07/23 15:33 06/07/23 16:14 Diphth,Pertus(Acell),Tet Adult 0.5 Ml Syringe IM 06/07/23 15:34 0.5 ml .ONCE ONE Administration Medical Decision Making Medical Decision Making MDM Narrative: 82 year old male presenting for 4x3cm cyst on midback. Exam significant for erythematous, raised cyst on the midback that is draining purulent discharge. This is likely an abscess. Unlikely cyst or lipoma due to purulent drainage. Unlikely nercotizing infection, SJS,TEN Plan: incision and drainage, Keflex and doxycycline Fine needle aspiration performed and minimal drainage was collected. An incision and drainage was then performed with an 11 blade with mild/ moderate amount of drainage. Patient began to shake after likely secondary to pain EKG ordered. Differential Diagnosis Differential Diagnoses: The differential diagnosis associated with the presentation includes This is likely an abscess. Unlikely cyst or lipoma due to purulent drainage. Unlikely nercotizing infection, SJS,TEN Admission/Observation Consideration of admission/observation: Escalation of care including admission/observation considered Not indicated. Independent Interpretation I performed an independent interpretation of an: EKG Prescription Management I considered prescription management with: Antibiotic Keflex and Doxycycline. Core Measures AMI core measures followed: Yes Measure exclusions: not indicated Critical Care Time Critical Care Time Critical Care Time: No Discharge Plan Discharge Clinical Impression: Abscess of back Patient Disposition: Home, Self-Care Instructions: Abscess (ED), Abscess Incision and Drainage (DC) Additional Instructions: Take your medications as prescribed. If you were prescribed antibiotics today, it is important that you take your medication to their entirety, do not skip any doses, do not finish them early. Follow-up with your primary care provider this week. Return to the emergency department with new or worsening symptoms. Such as fevers, chills, chest pain, shortness of breath, nausea, vomiting, dizziness, headache, vision changes, lethargy In case of emergency call 911 Prescriptions: New doxycycline hyclate 100 mg capsule 100 mg PO BID 10 Days Qty: 20 0RF cephalexin 500 mg tablet 500 mg PO Q6H 10 Days Qty: 40 0RF No Action lisinopril 10 mg tablet 10 mg PO DAILY Qty: 90 3RF allopurinol 100 mg tablet 200 mg PO DAILY Qty: 180 3RF simvastatin 5 mg tablet 5 mg PO BEDTIME Qty: 90 3RF Referrals: Eden Self MD [Primary Care Provider] - 2 days Stand Alone Forms: Work/School Release
[2023-06-07] MEDS: Diphth,Pertus(ACell),Tet Adult 0.5 ML SYRINGE IM (16:14)
--- NOTE | 2023-06-07 16:15 | ECG_ITS ---
Test Reason : TREMOR Blood Pressure : / mmHG Vent. Rate : 096 BPM Atrial Rate : 096 BPM P-R Int : 198 ms QRS Dur : 138 ms QT Int : 370 ms P-R-T Axes : 041 -13 -09 degrees QTc Int : 467 ms Normal sinus rhythm with sinus arrhythmia Right bundle branch block Abnormal ECG When compared with ECG of 17-MAR-2017 19:08, Sinus rhythm has replaced Electronic ventricular pacemaker Referred By: Anupam Garcia Electronically Signed By:SYLVESTER NOVOA
[2023-06-07 16:33] VITALS: BP 164/89; PULSE 93; RESP 18; O2SAT 97
[2023-06-07] MEDS: Lidocaine HCl 1 % MPF 5 ML VIAL 2 ML SUBCUT (17:28)
[2023-06-07] MEDS: Lidocaine HCl 1 % 20 ML VIAL SUBCUT ×2 (17:28)
== END 2023-06-07 17:41 | disposition home or self-care (01) ==
PROVIDERS: Emergency Provider Emergency Medicine; PCP Internal Medicine
DX: L02.212 Cutaneous abscess of back [any part, except buttock and flank] (principal); S31.000A Unspecified open wound of lower back and pelvis without penetration into retroperitoneum, initial encounter; X58.XXXA Exposure to other specified factors, initial encounter; I45.10 Unspecified right bundle-branch block; I49.8 Other specified cardiac arrhythmias; I10 Essential (primary) hypertension; E78.5 Hyperlipidemia, unspecified; F17.200 Nicotine dependence, unspecified, uncomplicated; Z79.899 Other long term (current) drug therapy; Z95.0 Presence of cardiac pacemaker
CPT/HCPCS: 10060; 90471; 90715; 93005; 99284

== ENCOUNTER 2023-06-12 09:56 | Outpatient (AMB) | payer MEDICARE, OTHER, SELFPAY ==
[2023-06-12 10:05] VITALS: BP 124/66; PULSE 87; O2SAT 97; BMI 32.7
--- NOTE | 2023-06-12 10:05 | MHC.PC.OV ---
Vital Signs 06/12/23 10:05 Height 6 ft 2 in Weight 255 lb BMI 32.7 BP 124/66 Blood Pressure Location Lt brachial Position Sitting Pulse 87 Pulse Source Pulse Oximeter Pulse Oximetry (%) 97 Oxygen Delivery Method Room Air Intake Visit Reasons: ed follow up for cyst Intake Note: Pt is here today for ER follow up visit. Allergies nut - unspecified [NUTS] Allergy (Unknown, Verified 06/12/23 10:07) ANAPHYLAXIS Tobacco use date assessed: 06/12/23 Fall risk assessment: No Falls in past year Last assessed Fall Risk: 06/12/23 Dental Screening Dental Screen Date: 06/12/23 Did you have a dental visit in the last 12 months?: Yes Did you have a dental problem in the last 6 months where you did not have access to dental care?: No Was dental information given to patient?: Patient has dentist HPI ed follow up for cyst HPI Details Patient presents for the follow-up of ER visit for infected sebaceous cyst. Patient underwent I&D and was prescribed antibiotics. Patient's has been changing dressing twice a day and reports persistent small amount of bleeding. Patient denies any pain in the area, fever or chills. [facility] Medical History Elevated LFTs Essential hypertension Gout History of GI bleed HTN (hypertension) Hyperlipidemia Normally functioning cardiac pacemaker present Surgical History History of permanent cardiac pacemaker placement (~01/2016) Family History Father No problems noted. Mother No problems noted. Social History Housing: House Alcohol intake: current Alcohol intake frequency: a few times a week Patient Tobacco Use Status: Current everyday Tobacco user Tobacco use type: Cigar e-Cigarette/Vaping Use: Never Used Current occupational status: retired Current occupational exposures/hazards: No Cognitive needs: No Hearing needs: No Vision needs: Yes Questionnaire Thrive Questionnaire Date Thrive assessed: 10/24/22 HARDIK-7 AMB Questionnaire HARDIK-7 Date HARDIK - 7 assessed: 10/24/22 Source: Developed by Drs. Pancho Diop, Mindy Walton, Trent Soria and colleagues, with an educational carrie from [employer]. Review of Systems Const All systems reviewed & are unremarkable except as noted in HPI and below Reports no additional complaints Eyes Reports no additional complaints ENT Reports no additional complaints Card Reports no additional complaints Resp Reports no additional complaints GI Reports no additional complaints Physical exam (Primary Care) Vital Signs: Last Vital Signs Pulse 87 06/12/23 10:05 BP 124/66 06/12/23 10:05 Pulse Ox 97 06/12/23 10:05 Oxygen Delivery Method Room Air 06/12/23 10:05 BMI result Body Mass Index 32.7 Tobacco/Smoking Status: Tobacco use Status Tobacco use date assessed 06/12/23 06/12/23 10:10 Patient Tobacco Use Status Current everyday Tobacco 06/12/23 10:10 Tobacco use type Cigar 06/12/23 10:10 e-Cigarette/Vaping Use Never Used 06/12/23 10:10 Thrive Assessment: Date of Thrive Assessment Date Thrive assessed 10/24/22 06/12/23 10:10 Const General: no acute distress Resp Effort & Inspection: normal respiratory effort Auscultation: clear to auscultation bilaterally Cardio Rhythm: regular rhythm Heart sounds: S1 normal heart sound present and S2 normal heart sound present Skin Other: Left-sided midback 5 x 4 cm area with denuded skin with superficial bleeding, no purulent discharge erythema or warmth Assessment and Plan Assessment & Plan (1) Sebaceous cyst: Code(s): L72.3 - Sebaceous cyst Plan: Continue antibiotics and local wound care Coding Level of Care Code Est Pt Level 3 (20556) Diagnoses Sebaceous cyst L72.3
== END 2023-06-12 11:02 | disposition home or self-care (01) ==
PROVIDERS: PCP Internal Medicine; Visit Provider Internal Medicine
DX: L72.3 Sebaceous cyst (principal)
CPT/HCPCS: 99213

== ENCOUNTER → 2023-08-22 23:59 | Outpatient (BNV) | payer MEDICARE, OTHER, SELFPAY ==
--- NOTE | 2023-08-23 12:31 | A.OFFVIS_ITS ---
Intake Intake Visit Reasons: Remote Device Check- [facility] Allergies nut - unspecified [NUTS] Allergy (Unknown, Verified 06/12/23 10:07) ANAPHYLAXIS [facility] Medical History Elevated LFTs Essential hypertension Gout History of GI bleed HTN (hypertension) Hyperlipidemia Normally functioning cardiac pacemaker present Surgical History History of permanent cardiac pacemaker placement (~01/2016) Family History Father No problems noted. Mother No problems noted. 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 Overall normal device function. [id number] Cardiac Device Interrogation, pacemaker Procedure code (CPT) selection complete Assessment & Plan Assessment & Plan (1) Heart block: Code(s): I45.9 - Conduction disorder, unspecified Coding Level of Care Code Procedure Only Diagnoses Heart block I45.9 CPT Codes Cardiac Device Check - Cardiac Device 12: [id number] Cardiac Device Interrogation, pacemaker ([id number])
== END ==
PROVIDERS: PCP Internal Medicine; Visit Provider Internal Medicine
DX: I45.9 Conduction disorder, unspecified (principal); Z95.0 Presence of cardiac pacemaker
CPT/HCPCS: 93294

== ENCOUNTER 2023-11-01 07:03 | Outpatient (REF) | payer MEDICARE, OTHER, SELFPAY ==
[2023-11-01 07:32] LABS: MANUAL DIFF FLAG NO
[2023-11-01 08:37] LABS: Basophils Percent Auto 0.7 % (0-2); Eosinophils Absolute Auto 0.4 X10*3/uL (0.0-0.4); Eosinophils Percent Auto 7.1 % (0-4); Hematocrit 42.6 % (42.0-52.0); Hemoglobin 13.8 g/dl (14.0-18.0); Imm Gran Abs Auto 0.09 X10*3/uL (0.00-0.03); Imm Gran Pct Auto 1.6 % (0.0-0.4); Lymphocytes Absolute Auto 1.6 X10*3/uL (1.2-4.9); Lymphocytes Percent Auto 28.6 % (20-40); Mean Corpuscular HGB Conc 32.4 g/dl (31.0-36.0); Mean Corpuscular Hemoglobin 32.4 pg (27.0-33.0); Mean Platelet Volume 10.8 fL (9.4-12.4); Monocytes Absolute Auto 0.4 X10*3/uL (0.1-1.2); Monocytes Percent Auto 6.6 % (2-11); Neutrophils Absolute Auto 3.2 x10*3/uL (2.0-8.3); Neutrophils Percent Auto 55.4 % (45-73); Platelet Count 220 X10*3/uL (160-400); Red Blood Count 4.26 X10*6/uL (4.60-5.80); Red Cell Distribution Width 13.6 % (11.0-16.0); White Blood Count 5.7 X10*3/uL (4.8-10.8)
[2023-11-01 08:43] LABS: Estimated Average Glucose 114 mg/dL; Hemoglobin A1c % 5.6 % (<6.0)
[2023-11-01 09:07] LABS: Alanine Aminotransferase 60 U/L (0-40); Albumin Level 3.6 g/dL (3.5-5.0); Alkaline Phosphatase 80 U/L (39-117); Anion Gap 10 (12-20); Aspartate Amino Transferase 43 U/L (5-37); Bilirubin Total 0.4 mg/dL (0.0-1.0); Blood Urea Nitrogen 22 mg/dL (9-16); Carbon Dioxide 22 mmol/L (22-29); Chloride 115 mmol/L (96-108); Cholesterol 129 mg/dL (<200); Estimated Glomerular Filt Rate > 60; Glucose Fasting 129 mg/dL (60-99); HDL Cholesterol 38 mg/dL (>40); LDL Cholesterol Calculated 75 mg/dL (<100); Sodium 143 mmol/L (135-145); Total Protein 6.7 g/dL (6.5-8.0); Triglycerides 80 mg/dL (<150)
== END 2023-11-01 07:04 | disposition home or self-care (01) ==
LOC: HO.LAB 07:03
PROVIDERS: PCP Internal Medicine; Visit Provider Internal Medicine
DX: E78.5 Hyperlipidemia, unspecified (principal); I10 Essential (primary) hypertension; R73.9 Hyperglycemia, unspecified
CPT/HCPCS: 36415; 80053; 80061; 83036; 85025

== ENCOUNTER 2023-11-06 08:21 | Outpatient (AMB) | payer MEDICARE, OTHER, SELFPAY ==
[2023-11-06 08:39] VITALS: BP 118/64; PULSE 90; O2SAT 96; BMI 32.7
--- NOTE | 2023-11-06 08:39 | A.OFFPC_ITS ---
Vital Signs 11/06/23 08:39 Height 6 ft 2 in Weight 255 lb BMI 32.7 BP 118/64 Blood Pressure Location Lt brachial Position Sitting Pulse 90 Pulse Source Pulse Oximeter Pulse Oximetry (%) 96 Oxygen Delivery Method Room Air Intake Visit Reasons: 6 month follow up Intake Note: Pt is here today for 6 months follow up visit. Allergies nut - unspecified [NUTS] Allergy (Unknown, Verified 11/06/23 08:44) ANAPHYLAXIS Medication List - Last Reconciled 11/06/23 by Eden Self MD allopurinol 200 mg (2 x 100 mg) PO DAILY lisinopril 10 mg PO DAILY simvastatin 5 mg PO BEDTIME Tobacco use date assessed: 11/06/23 Fall risk assessment: No Falls in past year Last assessed Fall Risk: 11/06/23 Dental Screening Dental Screen Date: 11/06/23 Did you have a dental visit in the last 12 months?: Yes Did you have a dental problem in the last 6 months where you did not have access to dental care?: No Was dental information given to patient?: Patient has dentist HPI 6 month follow up HPI Details Patient presents for follow-up on hypertension and hyperlipidemia, stable on current medications [facility] Medical History Elevated LFTs Essential hypertension Gout History of GI bleed HTN (hypertension) Hyperlipidemia Normally functioning cardiac pacemaker present Surgical History History of permanent cardiac pacemaker placement (~01/2016) Family History Father No problems noted. Mother No problems noted. Social History Housing: House Alcohol intake: current Alcohol intake frequency: a few times a week Patient Tobacco Use Status: Current everyday Tobacco user Tobacco use type: Cigar e-Cigarette/Vaping Use: Never Used Current occupational status: retired Current occupational exposures/hazards: No Cognitive needs: No Hearing needs: No Vision needs: Yes Questionnaire PHQ-9 Over the last 2 weeks, how often have you been bothered by any of the following problems? 1. Little interest or pleasure in doing things: not at all 2. Feeling down, depressed, or hopeless: not at all 3. Trouble falling or staying asleep, or sleeping too much: not at all 4. Feeling tired or having little energy: not at all 5. Poor appetite or overeating: not at all 6. Feeling bad about yourself - or that you are a failure or have let yourself or your family down: not at all 7. Trouble concentrating on things, such as reading the newspaper or watching television: not at all 8. Moving or speaking so slowly that other people could have noticed. Or the opposite - being so fidgety or restless that you have been moving around a lot more than usual: not at all 9. Thoughts that you would be better off or of hurting yourself in some way: not at all Total score: 0 Depression Screening Interpretation: Negative Depression Screening Done: Yes Source: Developed by Drs. Pancho Diop, Mindy Walton, Trent Soria and colleagues, with an educational carrie from [employer]. Thrive Questionnaire Date Thrive assessed: 11/06/23 I am a: Patient What is your living situation today?: I have a steady place to live Within the past 12 months, did the food you bought not last and you didn't have the money to get more?: Never true Within the past 12 months, did you worry whether your food would run out before you got money to buy more?: Never true Do you have trouble paying for medicines?: No Do you have trouble getting transportation to medical appointments?: No Do you have trouble paying your heating and electricity bill?: No Do you have trouble taking care of your child, family member or friend?: No Do you have trouble with day-to-day activities such as bathing, preparing meals, shopping, managing finances, etc.?: No Are you currently unemployed and looking for a job?: No Are you interested in more education?: No Please select the resources that you would like help with: None AUDIT C Alcohol Use Questionnaire (AUDIT-C) 1. How often do you have a drink containing alcohol?: 4 or more times a week 2. How many drinks containing alcohol do you have on a typical day when you are drinking?: 1 or 2 3. How often do you have six or more drinks on one occasion?: Never Total Score: 4 HARDIK-7 AMB Questionnaire HARDIK-7 Date HARDIK - 7 assessed: 11/06/23 Feeling nervous, anxious, or on edge: 0 = Not at all Not being able to stop or control worryin = Not at all Worrying too much about different things: 0 = Not at all Trouble relaxin = Not at all Being so restless that it is hard to sit still: 0 = Not at all Becoming easily annoyed or irritable: 0 = Not at all Feeling afraid as if something awful might happen: 0 = Not at all Total HARDIK-7 score (0-4 normal; 5-9 mild; 10-14 moderate; 15-21 severe): 0 Source: Developed by Drs. Pancho Diop, Mindy Walton, Trent Soria and colleagues, with an educational carrie from [employer]. Review of Systems Const All systems reviewed & are unremarkable except as noted in HPI and below Reports no additional complaints Eyes Reports no additional complaints ENT Reports no additional complaints Card Reports no additional complaints Resp Reports no additional complaints GI Reports no additional complaints Reports no additional complaints Physical exam (Primary Care) Vital Signs: Last Vital Signs Pulse 90 11/06/23 08:39 BP 118/64 11/06/23 08:39 Pulse Ox 96 11/06/23 08:39 Oxygen Delivery Method Room Air 11/06/23 08:39 BMI result Body Mass Index 32.7 Tobacco/Smoking Status: Tobacco use Status Tobacco use date assessed 11/06/23 11/06/23 08:47 Patient Tobacco Use Status Current everyday Tobacco 11/06/23 08:39 Tobacco use type Cigar 11/06/23 08:39 e-Cigarette/Vaping Use Never Used 11/06/23 08:39 PHQ-9: PHQ-9 Score PHQ-9: Total score 0 11/06/23 08:49 Depression Screening Interpretation: Negative Thrive Assessment: Date of Thrive Assessment Date Thrive assessed 11/06/23 11/06/23 08:49 Const General: no acute distress HENMT Face and sinus: Yes normal facial exam Neck Neck: Yes supple Resp Effort & Inspection: normal respiratory effort Auscultation: clear to auscultation bilaterally Cardio Rhythm: regular rhythm Heart sounds: S1 normal heart sound present and S2 normal heart sound present GI Inspection: Yes normal to inspection Palpation (GI): Soft to palpation Percussion: Yes normal to percussion Auscultation: normal bowel sounds Assessment and Plan Assessment & Plan (1) Elevated LFTs: Code(s): R79.89 - Other specified abnormal findings of blood chemistry Plan: Patient was advised to decrease alcohol intake avoid NSAID and LFTs will be monitored (2) Hyperlipidemia: Code(s): E78.5 - Hyperlipidemia, unspecified Plan: Continue statin (3) Essential hypertension: Code(s): I10 - Essential (primary) hypertension Plan: Continue lisinopril (4) Hyperglycemia: Code(s): R73.9 - Hyperglycemia, unspecified Plan: A1c is 5.6, ADA diet increase physical activity, weight loss discussed with the patient. Follow-up in 6 months with a fasting labs before Orders: Orders Lipid Panel 6 Months E78.5 - Hyperlipidemia, unspecified, I10 - Essential (primary) hypertension, R73.9 - Hyperglycemia, unspecified, R79.89 - Other specified abnormal findings of blood chemistry Comprehensive [place]. Panel Fast 6 Months E78.5 - Hyperlipidemia, unspecified, I10 - Essential (primary) hypertension, R73.9 - Hyperglycemia, unspecified, R79.89 - Other specified abnormal findings of blood chemistry Complete Blood Count Auto Diff 6 Months E78.5 - Hyperlipidemia, unspecified, I10 - Essential (primary) hypertension, R73.9 - Hyperglycemia, unspecified, R79.89 - Other specified abnormal findings of blood chemistry Hemoglobin A1c 6 Months E78.5 - Hyperlipidemia, unspecified, I10 - Essential (primary) hypertension, R73.9 - Hyperglycemia, unspecified, R79.89 - Other specified abnormal findings of blood chemistry UA w Microscopic 6 Months E78.5 - Hyperlipidemia, unspecified, I10 - Essential ( primary) hypertension, R73.9 - Hyperglycemia, unspecified, R79.89 - Other specified abnormal findings of blood chemistry Coding Level of Care Code Est Pt Level 4 (94733) Diagnoses Elevated LFTs R79.89 Hyperlipidemia E78.5 Essential hypertension I10 Hyperglycemia R73.9
== END 2023-11-06 09:25 | disposition home or self-care (01) ==
PROVIDERS: PCP Internal Medicine; Visit Provider Internal Medicine
DX: E78.5 Hyperlipidemia, unspecified (principal); I10 Essential (primary) hypertension; R73.9 Hyperglycemia, unspecified
CPT/HCPCS: 99214

== ENCOUNTER → 2023-11-21 23:59 | Outpatient (BNV) | payer MEDICARE, OTHER, SELFPAY ==
--- NOTE | 2023-11-22 09:08 | A.OFFVIS_ITS ---
Intake Intake Visit Reasons: Remote Device Check- [facility] Allergies nut - unspecified [NUTS] Allergy (Unknown, Verified 11/06/23 08:44) [facility]IS [facility] Medical History Elevated LFTs Essential hypertension Gout History of GI bleed HTN (hypertension) Hyperlipidemia Normally functioning cardiac pacemaker present Surgical History History of permanent cardiac pacemaker placement (~01/2016) Family History Father No problems noted. Mother No problems noted. Social History Housing: House Alcohol intake: current Alcohol intake frequency: a few times a week Patient Tobacco Use Status: Current everyday Tobacco user Tobacco use type: Cigar e-Cigarette/Vaping Use: Never Used Current occupational status: retired Current occupational exposures/hazards: No Cognitive needs: No Hearing needs: No Vision needs: Yes Office Procedures Cardiac Device Check Cardiac Device Check Details: Date of service- 11/21/2023 ; Battery life >2 years; normal lead parameters; AP 20%; FOOD SERVICE DIRECTOR 27%; brief atrial tachycardia episodes. Overall normal device function. [id number] Cardiac Device Interrogation, pacemaker Procedure code (CPT) selection complete Assessment & Plan Assessment & Plan (1) Heart block: Code(s): I45.9 - Conduction disorder, unspecified Plan x Coding Level of Care Code Procedure Only Diagnoses Heart block I45.9 CPT Codes Cardiac Device Check - Cardiac Device 12: [id number] Cardiac Device Interrogation, pacemaker ([id number])
== END ==
PROVIDERS: PCP Internal Medicine; Visit Provider Internal Medicine
DX: I45.9 Conduction disorder, unspecified (principal); Z95.0 Presence of cardiac pacemaker
CPT/HCPCS: 93294

== ENCOUNTER 2024-01-21 12:13 | Outpatient (AMB) | payer MEDICARE, OTHER, SELFPAY ==
--- NOTE | 2024-01-21 12:45 | A.OFFVIS_ITS ---
Intake Vital Signs 01/21/24 12:55 Height 6 ft 2 in Weight 254 lb 13.67 oz BMI 32.7 BP 118/54 L Blood Pressure Location Lt brachial Position Sitting Intake Visit Reasons: fu Intake Note: follow up Materials Supervisor Required: No Accompanied by: Self / Same As Patient Allergies nut - unspecified [NUTS] Allergy (Unknown, Verified 01/21/24 12:58) ANAPHYLAXIS Medication List - Last Reconciled 01/21/24 by Victorino Uriostegui MD allopurinol 200 mg (2 x 100 mg) PO DAILY lisinopril 10 mg PO DAILY simvastatin 5 mg PO BEDTIME HPI HPI Comments History of Present Illness Details Ricardo returns for follow-up. To recall, several years ago he underwent workup for syncope. 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 Overall, doing good. No cardiac symptoms whatsoever. [facility] Medical History Elevated LFTs Essential hypertension Gout History of GI bleed HTN (hypertension) Hyperlipidemia Normally functioning cardiac pacemaker present Surgical History History of permanent cardiac pacemaker placement (~01/2016) Family History Father No problems noted. Mother No problems noted. Social History Housing: House Alcohol intake: current Alcohol intake frequency: a few times a week Patient Tobacco Use Status: Current everyday Tobacco user Tobacco use type: Cigar e-Cigarette/Vaping Use: Never Used Current occupational status: retired Current occupational exposures/hazards: No Cognitive needs: No Hearing needs: No Vision needs: Yes Review of Systems Const All systems reviewed & are unremarkable except as noted in HPI and below Reports as per HPI and Reports no additional complaints Eyes Reports as per HPI and Denies no additional complaints ENT Denies no additional complaints and Reports as per HPI Card Reports as per HPI, Reports no additional complaints, Denies acrocyanosis, Denies chest pain, Denies leg edema, Denies lightheadedness, Denies palpitations and Denies dyspnea Resp Reports as per HPI, Denies no additional complaints and Denies dyspnea GI Reports as per HPI and Denies no additional complaints Reports no additional complaints and Reports as per HPI Musc Reports no additional complaints and Reports as per [facility] Skin/Breast Reports system reviewed and no additional complaints, except as documented Neuro Reports no additional complaints and Reports as per HPI Psych Reports no additional complaints and Reports as per HPI Endo Reports no additional complaints, Reports as per HPI and Denies palpitations Madi/Lymph Reports no additional complaints and Reports as per HPI Aller/Immun Reports no additional complaints and Reports as per HPI Physical Exam Vital Signs: Last Vital Signs BP 118/54 L 01/21/24 12:55 BMI result Body Mass Index 32.7 Const General: comfortable and no acute distress Orientation/consciousness: patient oriented x3 HEENT Other: Unremarkable Head: Yes normal to inspection Neck Neck: Yes normal visual inspection Chest Chest palpation & inspection: normal inspection of the chest Resp Auscultation: clear to auscultation bilaterally Cardio Palpation: normal PMI Heart sounds: S1 normal heart sound present, S2 normal heart sound present, no gallops, Murmur heart sound present systolic II/ and at the right sternal border and no rubs GI Palpation (GI): Soft to palpation Back/Spine/Pelvis Other: unremarkable Skin General skin exam: no rashes or lesions noted Neuro General: patient oriented x3 Extrem General: Yes normal to inspection Psych Mental Status: mental status grossly normal Office Procedures Cardiac Device Check Cardiac Device Check Details: Pacemaker interrogated today. Dual-chamber device, programmed DDDR mode. Battery status more than 9 years. Normal lead parameters. Atrial pacing 21%. Ventricular pacing 35%. One very brief high ventricular rate episode but only 2 seconds. Overall, normal device function. [id number] Cardiac Device Check, pacemaker dual lead Procedure code (CPT) selection complete Assessment & Plan Assessment & Plan (1) RBBB: Code(s): I45.10 - Unspecified right bundle-branch block Plan: No specific consequence. 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 Already has a pacemaker. (2) Essential hypertension: Code(s): I10 - Essential (primary) hypertension Plan: Stable. On lisinopril. (3) NSVT (nonsustained ventricular tachycardia): Code(s): I47.2 - Ventricular tachycardia Plan: Noted on device check. Echocardiogram and stress perfusion imaging in the past but unremarkable. No specific concerns. (4) Normally functioning cardiac pacemaker present: Code(s): Z95.0 - Presence of cardiac pacemaker Plan: Normal function. Follow remotely. Plan Has murmur suggesting aortic sclerosis/stenosis. We can check echocardiogram. Orders: Orders CA echo transthoracic complete 1 Year I35.0 - Nonrheumatic aortic (valve) stenosis Coding Level of Care Code Est Pt Level 3 (77264) Diagnoses RBBB I45.10 Essential hypertension I10 NSVT (nonsustained ventricular tachycardia) I47.2 Normally functioning cardiac pacemaker present Z95.0 CPT Codes Cardiac Device Check - Cardiac Device 2: [id number] Cardiac Device Check, pacemaker dual lead ([id number])
[2024-01-21 12:55] VITALS: BP 118/54; BMI 32.7
== END 2024-01-21 13:17 | disposition home or self-care (01) ==
PROVIDERS: PCP Internal Medicine; Visit Provider Internal Medicine
DX: I45.10 Unspecified right bundle-branch block (principal); I10 Essential (primary) hypertension; I47.20 Ventricular tachycardia, unspecified; Z95.0 Presence of cardiac pacemaker
CPT/HCPCS: 93280; 99213

== ENCOUNTER → 2024-01-21 12:13 | Outpatient (BNVA) | payer MEDICARE, OTHER, SELFPAY | PROVIDERS: PCP Internal Medicine; Visit Provider Internal Medicine | DX: I45.10 Unspecified right bundle-branch block (principal); I10 Essential (primary) hypertension; I47.20 Ventricular tachycardia, unspecified; I35.0 Nonrheumatic aortic (valve) stenosis; Z45.018 Encounter for adjustment and management of other part of cardiac pacemaker | CPT/HCPCS: 93280; 99212 ==

== ENCOUNTER → 2024-02-20 23:59 | Outpatient (BNV) | payer MEDICARE, OTHER, SELFPAY ==
--- NOTE | 2024-02-24 17:25 | MHC.OFFVIS ---
Intake Visit Reasons: Remote device check- [facility] Allergies nut - unspecified [NUTS] Allergy (Unknown, Verified 01/21/24 12:58) ANAPHYLAXIS [facility] Medical History Elevated LFTs Essential hypertension Gout History of GI bleed HTN (hypertension) Hyperlipidemia Normally functioning cardiac pacemaker present Surgical History History of permanent cardiac pacemaker placement (~01/2016) Family History Father No problems noted. Mother No problems noted. Social History Housing: House Alcohol intake: current Alcohol intake frequency: a few times a week Patient Tobacco Use Status: Current everyday Tobacco user Tobacco use type: Cigar e-Cigarette/Vaping Use: Never Used Current occupational status: retired Current occupational exposures/hazards: No Cognitive needs: No Hearing needs: No Vision needs: Yes Office Procedures Cardiac Device Check Cardiac Device Check Details: Date of service- 02/20/2024 ; Battery life 2.5 - 2.9 years; normal lead parameters; AP 23%; [employer]LECT[employer]SEM[employer]ER 40%; suspected atrial tachycardia episodes, brief. ?brief NSVT. Overall normal device function. [id number] Cardiac Device Interrogation, pacemaker Procedure code (CPT) selection complete Assessment & Plan Assessment & Plan (1) Heart block: Code(s): I45.9 - Conduction disorder, unspecified Category: Medical Plan x Coding Level of Care Code Procedure Only Diagnoses Heart block I45.9 CPT Codes Cardiac Device Check - Cardiac Device 12: [id number] Cardiac Device Interrogation, pacemaker ([id number])
== END ==
PROVIDERS: PCP Internal Medicine; Visit Provider Internal Medicine
DX: I45.9 Conduction disorder, unspecified (principal); R00.0 Tachycardia, unspecified; Z95.0 Presence of cardiac pacemaker
CPT/HCPCS: 93294

== ENCOUNTER → 2024-04-08 07:52 | Outpatient (REF) | payer MEDICARE, OTHER, SELFPAY ==
--- NOTE | ~2024-04-08 | NM_ITS ---
Lexiscan Myocardial perfusion study Indication: Ventricular tachycardia Technique: The patient was brought in for a Lexiscan perfusion study on 04/08/2024 and was injected 0.4 mg of Lexiscan intravenously. Within a minute of this injection 40 mCi of sestamibi was given intravenously. Images were obtained using the SPECT gamma camera interlaced with the gating device. Images were obtained in supine position. Resting perfusion study was performed on 04/15/2024. Patient was administered 40 mCi of sestamibi intravenously at rest. Images were then obtained in supine position. Images were processed with the software and compared side to side in short axis, horizontal long axis and vertical long axis views. Total DLP 105mGy-cm. Findings: Raw acquisition reviewed. Arms by his side. The stress perfusion study showed diminished tracer uptake along the inferior/inferolateral wall. With CT attenuation correction, there is improvement suggestive of diaphragmatic attenuation artifact. The gated study shows normal LV systolic function with calculated LVEF of 65%. LV cavity is normal in size. The gated study shows normal wall thickening and contraction of segments. Resting study shows no significant perfusion abnormality. Gating at rest reveals normal wall motion with ejection fraction at 58%. The findings are consistent with reversible inferior/inferolateral defect, possibly from diaphragmatic attenuation artifact. Cannot exclude ischemia. KY/KY cardiolite stress test Impression: 1. Myocardial perfusion imaging study shows reversible inferior/inferolateral defect. Possible ischemia. Can also be from diaphragmatic attenuation artifact. 2. Gated LVEF is 65% during stress and 58% during rest. 3. Transient ischemic dilatation not present. EKG component of the test reported separately.
--- NOTE | 2024-04-08 07:59 | CA_ITS ---
Transthoracic Echocardiogram Patient (Last, First, Middle): Ricardo Singh S Gender: Male Date of : 1940 Age: 83 Procedure Date: 04/08/2024 Procedure Type: Transthoracic Echocardiogram Location: OP Height: 187.96 cm Weight: 113.4 kg BSA: 2.39 m2 Heart Rate: bpm BP: 110 / 68 mmHg Casino Duty Manager: TO Referring MD: Jade Chowdary SWIMMING POOL PLASTERER HELPERBarbie Symptoms: I35.0 - Nonrheumatic aortic (valve) stenosis Study Quality: Fair/Contrast ECG Rhythm: Sinus Conclusions: - The left ventricular systolic function is normal. The calculated ejection fraction is 56% by biplane method. - There is mild aortic valve stenosis. Findings Procedure Information Contrast agent, definity, is being given per protocol without apparent complications. Left Ventricle Normal left ventricular cavity size. There is mildly increased left ventricular wall thickness. The left ventricular systolic function is normal. The calculated ejection fraction is 56% by biplane method. There is no evidence of regional wall motion abnormalities. Diastolic function is normal for age. There is moderate septal asymmetric hypertrophy. Right Ventricle Normal right ventricular cavity size and systolic function. There is a pacemaker wire seen in the right ventricle. Atria Both atria are normal in size. Aortic Valve There is a normal trileaflet aortic valve. There is mild calcification of the aortic valve. There is mild aortic valve stenosis. There is no aortic valve regurgitation. Mitral Valve The mitral valve appears normal. There is no mitral valve regurgitation. There is no mitral valve stenosis. Pulmonic Valve The pulmonic valve is likely normal. Tricuspid Valve There is trace tricuspid valve regurgitation. There is no evidence of pulmonary hypertension. Great Vessels The asc aorta is normal in size. Venous The inferior vena cava was not well visualized. The inferior vena cava is normal in size. Pericardium/Pleural There is no evidence of pericardial effusion. Prior Study Comparison Changes noted compared to prior study dated: 07/29/2020. Mild aortic stenosis noted. Measurements 2D Linear Measurements IVSd: 1.33 0.6-0.9/0.6-1.0 cm LVIDd: 4.59 3.9-5.3/4.2-5.9 cm LVIDd Index: 1.92 2.4-3.2/2.2-3.1 cm/m2 LVIDs: 3.05 2.0-3.6 cm LVPWd: 1.10 0.7-1.1 cm LA Diam: 3.40 2.7-3.8/3.0-4.0 cm LAIDs Index: 1.42 1.5-2.3 cm/m2 LV Mass: 259.22 67-162/88-224 g LV Mass Index: 108.46 43-95/49-115 g/m2 LVOT Diam: 2.10 3.0+(-)1.3 cm 2D Systolic Function EF 4C: 57.40 >55% EF 2C: 54.60 >55% EF BiP: 56.00 >55% Mitral Valve MV Pk E: 0.46 MV PK A: 0.68 MV Decel Time: 193.00 E/A: 0.70 E'Lateral: 6.85 E'Medial: 3.70 E/E' Med: 12.50 E/E' Lat: 6.80 PHT: 56.00 MVA PHT: 3.93 Decel [place]: 2.40 Aortic Valve AoV Pk Jim: 2.50 AoV Mn Jim: 1.85 AoV VTI: 0.51 AoV Pk Grad: 25.00 Aov Mn Grad: 15.00 ROSA MARIA Cont.VTI: 1.45 LVOT LVOT Pk Jim: 0.99 LVOT Mn Jim: 0.71 LVOT VTI: 0.21 LVOT Pk Grad: 4.00 LVOT Mn Grad: 2.00 LVOT Diam: 2.10 LVOT Area: 3.46 Diastolic Function MV Pk E: 0.46 MV Pk A: 0.68 E/A: 0.70 E'Medial: 3.70 E/E' Med: 12.50 E' Laterial: 6.85 E/E' Lat: 6.80 Right Ventricle TAPSE (mm): 21.40 TVS' Jim: 10.90 Tricuspid Valve TR Pk Jim: 2.08 TR Pk Grad: 17.00 Great Vessels Aorta Sinus of Valsalva: 3.51 2.0-3.[address] [place]: 2.73 1.7-3.4 cm Ao Asc: 3.80 2.1-3.4 cm Updated in Other Vendor System with Status of Final Victorino Uriostegui MD electronically signed on 04/08/2024 1:23:01 PM with status of Final
--- NOTE | 2024-04-08 07:59 | CA_ITS ---
Acquisition Time: 2024-04-08 09:42:36 Total Exercise Time: 00:02:00 Test Indications: RBBB, VTACH Medications: SEE H Protocol: LEXISCAN Max HR: 096 BPM 70% of Pred: 137 BPM Max BP: 140/074 mmHG Max Work Load: 1.0 METS Pharmacological stress test with Lexiscan injection, while sitting, without anginal symptoms, with isolated PAC, with normotensive response to injection, with nondiagnostic EKG for ischemia. Nuclear images pending. Test reviewed with Dr Esqueda. Referred By: Jade Chowdary Overread By: JADE CHOWDARY
== END ==
LOC: HO.CARD 07:52
PROVIDERS: PCP Internal Medicine; Visit Provider Nurse Practitioner Family
DX: Z45.018 Encounter for adjustment and management of other part of cardiac pacemaker (principal); I47.29 Other ventricular tachycardia; I35.0 Nonrheumatic aortic (valve) stenosis
CPT/HCPCS: 78452; 93017; 93306; A9500; J0280; J2785; Q9957

== ENCOUNTER → 2024-04-08 07:59 | Outpatient (BNV) | payer MEDICARE, OTHER, SELFPAY | PROVIDERS: PCP Internal Medicine; Visit Provider Internal Medicine | DX: I47.20 Ventricular tachycardia, unspecified (principal) | CPT/HCPCS: 78452; 93016; 93018; 93350; 93352 ==

== ENCOUNTER 2024-05-01 08:31 | Outpatient (REF) | payer MEDICARE, OTHER, SELFPAY ==
[2024-05-01 08:53] LABS: MANUAL DIFF FLAG NO
[2024-05-01 09:12] LABS: Basophils Percent Auto 0.3 % (0-2); Eosinophils Absolute Auto 0.4 X10*3/uL (0.0-0.4); Eosinophils Percent Auto 6.5 % (0-4); Hematocrit 42.8 % (42.0-52.0); Hemoglobin 14.4 g/dl (14.0-18.0); Imm Gran Pct Auto 1.5 % (0.0-0.4); Lymphocytes Absolute Auto 1.6 X10*3/uL (1.2-4.9); Lymphocytes Percent Auto 25.2 % (20-40); Mean Corpuscular HGB Conc 33.6 g/dl (31.0-36.0); Mean Corpuscular Hemoglobin 32.6 pg (27.0-33.0); Mean Corpuscular Volume 96.8 fL (80.0-98.0); Mean Platelet Volume 10.3 fL (9.4-12.4); Monocytes Absolute Auto 0.4 X10*3/uL (0.1-1.2); Monocytes Percent Auto 5.8 % (2-11); Neutrophils Absolute Auto 3.9 x10*3/uL (2.0-8.3); Neutrophils Percent Auto 60.7 % (45-73); Platelet Count 218 X10*3/uL (160-400); Red Blood Count 4.42 X10*6/uL (4.60-5.80); Red Cell Distribution Width 14.5 % (11.0-16.0); White Blood Count 6.5 X10*3/uL (4.8-10.8)
[2024-05-01 09:25] LABS: Estimated Average Glucose 117 mg/dL; Hemoglobin A1c % 5.7 % (<6.0)
[2024-05-01 09:45] LABS: Alanine Aminotransferase 74 U/L (0-40); Albumin Level 3.8 g/dL (3.5-5.0); Alkaline Phosphatase 83 U/L (39-117); Anion Gap 11 (12-20); Aspartate Amino Transferase 67 U/L (5-37); Blood Urea Nitrogen 21 mg/dL (9-16); Calcium 9.1 mg/dL (8.4-10.2); Carbon Dioxide 21 mmol/L (22-29); Chloride 110 mmol/L (96-108); Cholesterol 141 mg/dL (<200); Estimated Glomerular Filt Rate 53; Glucose Fasting 123 mg/dL (60-99); HDL Cholesterol 36 mg/dL (>40); LDL Cholesterol Calculated 85 mg/dL (<100); Potassium 4.3 mmol/L (3.3-5.1); Sodium 138 mmol/L (135-145); Triglycerides 104 mg/dL (<150)
[2024-05-01 09:57] LABS: Appearance Urine Cloudy; Color Urine Orange
[2024-05-01 09:58] LABS: Glucose Urine UA Negative (Negative); Leukocyte Esterase Urine Negative (Negative); Nitrite Urine Negative (Negative); Specific Gravity - Urine 1.025 (1.005-1.025); UMIC TRIGGER UA YES; Urine Blood Large (3+) (Negative); Urine Ketones Negative (Negative); Urine Protein 30 (1+) mg/dL (Neg-Trace)
[2024-05-01 10:01] LABS: Bacteria Urine None Seen (None Seen); Hyaline Casts Urine 0-2 /LPF (0-2); RBC Urine >20 /HPF (0-2)
== END 2024-05-01 08:32 | disposition home or self-care (01) ==
LOC: HO.LAB 08:31
PROVIDERS: PCP Internal Medicine; Visit Provider Internal Medicine
DX: I10 Essential (primary) hypertension (principal); E78.5 Hyperlipidemia, unspecified; R73.9 Hyperglycemia, unspecified
CPT/HCPCS: 36415; 80053; 80061; 81001; 83036; 85025

== ENCOUNTER 2024-05-06 10:49 | Outpatient (AMB) | payer MEDICARE, OTHER, SELFPAY ==
[2024-05-06 10:55] VITALS: BP 120/66; PULSE 77; O2SAT 95; BMI 32.5
--- NOTE | 2024-05-06 10:55 | MHC.PC.OV ---
Vital Signs 05/06/24 10:55 Height 6 ft 2 in Weight 253 lb BMI 32.5 BP 120/66 Blood Pressure Location Lt brachial Position Sitting Pulse 77 Pulse Source Pulse Oximeter Pulse Oximetry (%) 95 Oxygen Delivery Method Room Air Intake Visit Reasons: Annual PE Intake Note: Pt is here today for PE. Allergies nut - unspecified [NUTS] Allergy (Unknown, Verified 05/06/24 11:19) ANAPHYLAXIS Medication List - Last Reconciled 05/06/24 by Eden Self MD allopurinol 200 mg (2 x 100 mg) PO DAILY diltiazem HCl CD 120 mg PO DAILY lisinopril 5 mg PO DAILY simvastatin 5 mg PO BEDTIME Tobacco use date assessed: 05/06/24 Fall risk assessment: 1 Fall in past year Last assessed Fall Risk: 05/06/24 Dental Screening Dental Screen Date: 05/06/24 Did you have a dental visit in the last 12 months?: Yes Did you have a dental problem in the last 6 months where you did not have access to dental care?: No Was dental information given to patient?: Patient has dentist HPI Annual PE HPI Details Patient presents for physical. He follows up with Cardiology for pacemaker and had recent echocardiogram (normal ejection fraction mild aortic stenosis0 and negative nuclear stress test for increasing dyspnea on exertion. Patient denies chest pain palpitations PND or orthopnea. He noticed his urine turning orange recently. Patient denies dysuria, nocturia, change in urinary frequency, abdominal or pelvic pain, fever or chills. [facility] Medical History Elevated LFTs Essential hypertension Normally functioning cardiac pacemaker present History of GI bleed Gout HTN (hypertension) Hyperlipidemia Surgical History History of permanent cardiac pacemaker placement (~01/2016) Family History Father No problems noted. Mother No problems noted. Social History Housing: House Alcohol intake: current Alcohol intake frequency: a few times a week Patient Tobacco Use Status: Current everyday Tobacco user Tobacco use type: Cigar e-Cigarette/Vaping Use: Never Used service: No Current occupational status: retired Current occupational exposures/hazards: No Cognitive needs: No Hearing needs: No Vision needs: Yes Questionnaire PHQ-9 Over the last 2 weeks, how often have you been bothered by any of the following problems? 1. Little interest or pleasure in doing things: more than half the days 2. Feeling down, depressed, or hopeless: not at all 3. Trouble falling or staying asleep, or sleeping too much: several days 4. Feeling tired or having little energy: several days 5. Poor appetite or overeating: nearly every day 6. Feeling bad about yourself - or that you are a failure or have let yourself or your family down: not at all 7. Trouble concentrating on things, such as reading the newspaper or watching television: not at all 8. Moving or speaking so slowly that other people could have noticed. Or the opposite - being so fidgety or restless that you have been moving around a lot more than usual: not at all 9. Thoughts that you would be better off or of hurting yourself in some way: not at all Total score: 7 Depression Screening Interpretation: Negative Depression Screening Done: Yes Source: Developed by Drs. Pancho Diop, Mindy Walton, Trent Soria and colleagues, with an educational carrie from [employer]. Thrive Questionnaire Date Thrive assessed: 05/06/24 I am a: Parent/Caregiver What is your living situation today?: I have a place to live, but I am worried about losing it in the future Within the past 12 months, did the food you bought not last and you didn't have the money to get more?: Never true Within the past 12 months, did you worry whether your food would run out before you got money to buy more?: Never true Do you have trouble paying for medicines?: No Do you have trouble getting transportation to medical appointments?: I choose not to answer this question Do you have trouble paying your heating and electricity bill?: No Do you have trouble taking care of your child, family member or friend?: I choose not to answer this question Do you have trouble with day-to-day activities such as bathing, preparing meals, shopping, managing finances, etc.?: No Are you currently unemployed and looking for a job?: No Are you interested in more education?: No Please select the resources that you would like help with: Housing/Longterm Currently or been in a relationship where the following occur: No concerns reported THRIVE Score: 1 AUDIT C Alcohol Use Questionnaire (AUDIT-C) 1. How often do you have a drink containing alcohol?: 4 or more times a week 2. How many drinks containing alcohol do you have on a typical day when you are drinking?: 1 or 2 3. How often do you have six or more drinks on one occasion?: Never Total Score: 4 HARDIK-7 AMB Questionnaire HARDIK-7 Date HARDIK - 7 assessed: 05/06/24 Feeling nervous, anxious, or on edge: 1 = Several days Not being able to stop or control worryin = Several days Worrying too much about different things: 1 = Several days Trouble relaxin = Several days Being so restless that it is hard to sit still: 0 = Not at all Becoming easily annoyed or irritable: 2 = More than half the days Feeling afraid as if something awful might happen: 1 = Several days Total HARDIK-7 score (0-4 normal; 5-9 mild; 10-14 moderate; 15-21 severe): 7 Source: Developed by Drs. Pancho Diop, Mindy Walton, Trent Soria and colleagues, with an educational carrie from [employer]. Review of Systems Const All systems reviewed & are unremarkable except as noted in HPI and below Reports no additional complaints Eyes Reports no additional complaints ENT Reports no additional complaints Card Reports no additional complaints Resp Reports no additional complaints GI Reports no additional complaints Reports no additional complaints Physical exam (Primary Care) Vital Signs: Last Vital Signs Pulse 77 05/06/24 10:55 BP 120/66 05/06/24 10:55 Pulse Ox 95 05/06/24 10:55 Oxygen Delivery Method Room Air 05/06/24 10:55 BMI result Body Mass Index 32.5 Tobacco/Smoking Status: Tobacco use Status Tobacco use date assessed 05/06/24 05/06/24 11:22 Patient Tobacco Use Status Current everyday Tobacco 05/06/24 10:56 Tobacco use type Cigar 05/06/24 10:56 e-Cigarette/Vaping Use Never Used 05/06/24 10:56 PHQ-9: PHQ-9 Score PHQ-9: Total score 7 05/06/24 11:22 Depression Screening Interpretation: Negative Thrive Assessment: Date of Thrive Assessment Date Thrive assessed 05/06/24 05/06/24 11:22 Currently or been in a relationship where the following occur: No concerns reported Const General: no acute distress HENMT Head: Yes normal to inspection Ears: hearing grossly normal bilaterally Face and sinus: Yes normal facial exam Eyes General: appearance normal, both eyes and all related structures Resp Effort & Inspection: normal respiratory effort Auscultation: clear to auscultation bilaterally Cardio Rhythm: regular rhythm Heart sounds: S1 normal heart sound present and S2 normal heart sound present GI Inspection: Yes normal to inspection Palpation (GI): Soft to palpation Percussion: Yes normal to percussion Auscultation: normal bowel sounds Extrem General: Yes no clubbing, cyanosis or edema Assessment and Plan Assessment & Plan (1) Hematuria: Code(s): R31.9 - Hematuria, unspecified Plan: UA is consistent with hematuria urine culture will be obtained bladder and renal ultrasound will be scheduled .patient will be referred to urologist. (2) Essential hypertension: Code(s): I10 - Essential (primary) hypertension Plan: Continue current medications (3) Hyperglycemia: Code(s): R73.9 - Hyperglycemia, unspecified Plan: ADA diet increase exercise weight loss discussed with the patient, check a was seen 6 months (4) Annual physical exam: Code(s): Z00.00 - Encounter for general adult medical examination without abnormal findings Plan: Well-balanced diet regular exercise weight loss discussed with the patient. PFTs will be obtained to evaluate for COPD/emphysema with a past medical history of smoking (5) Hyperlipidemia: Code(s): E78.5 - Hyperlipidemia, unspecified Plan: Continue simvastatin Orders: Orders Urine Culture Today R31.9 - Hematuria, unspecified US bladder Today R31.9 - Hematuria, unspecified US renal BI Today R31.9 - Hematuria, unspecified PFT pulmonary function test Today Comprehensive [facility] [place]. Panel Fast 6 Months E78.5 - Hyperlipidemia, unspecified, I10 - Essential (primary) hypertension, R73.9 - Hyperglycemia, unspecified, Z00.00 - Encounter for general adult medical examination without abnormal findings Complete Blood Count Auto Diff 6 Months E78.5 - Hyperlipidemia, unspecified, I10 - Essential (primary) hypertension, R73.9 - Hyperglycemia, unspecified, Z00.00 - Encounter for general adult medical examination without abnormal findings Hemoglobin A1c 6 Months E78.5 - Hyperlipidemia, unspecified, I10 - Essential (primary) hypertension, R73.9 - Hyperglycemia, unspecified, Z00.00 - Encounter for general adult medical examination without abnormal findings Lipid Panel 6 Months E78.5 - Hyperlipidemia, unspecified, I10 - Essential (primary) hypertension, R73.9 - Hyperglycemia, unspecified, Z00.00 - Encounter for general adult medical examination without abnormal findings Referrals Urology Referral R31.9 - Hematuria, unspecified Coding Level of Care Code Est Pt Prev Care >65y(76340) Diagnoses Hematuria R31.9 Essential hypertension I10 Hyperglycemia R73.9 Annual physical exam Z00.00 Hyperlipidemia E78.5
== END 2024-05-06 12:23 | disposition home or self-care (01) ==
PROVIDERS: PCP Internal Medicine; Visit Provider Internal Medicine
DX: Z00.00 Encounter for general adult medical examination without abnormal findings (principal); R31.9 Hematuria, unspecified; I10 Essential (primary) hypertension; R73.9 Hyperglycemia, unspecified; E78.5 Hyperlipidemia, unspecified
CPT/HCPCS: 99397

== ENCOUNTER 2024-05-06 13:41 | Outpatient (REF) | payer MEDICARE, OTHER, SELFPAY ==
--- NOTE | ~2024-05-06 | US_ITS ---
EXAMINATION: US RETROPERITONEAL COMPLETE (RENAL) CLINICAL INFORMATION: Hematuria. COMPARISON: Abdominal ultrasound from 12/15/2021 TECHNIQUE: Real-time imaging of the kidneys and bladder. FINDINGS: RIGHT KIDNEY: 12.0 x 5.8 x 5.1 cm cm (SAG x AP x TRV). The kidney is normal in size, contour, and echogenicity. Renal cortical thickness is normal. No calculi or focal parenchymal lesions. No hydronephrosis. LEFT KIDNEY: 12.1 x 5.7 x 5.4 cm. cm (SAG x AP x TRV). The kidney is normal in size, contour, and echogenicity. Renal cortical thickness is normal. No focal parenchymal lesions. No hydronephrosis. Calcifications measured 0.4 x 0.2 x 0.4 cm interpolar cortex. BLADDER: Partially distended with prevoid volume of 1 46 mL.. Ureteral injected seen on the right only. Postvoid bladder volume is 103 mL there is filling defect questionably ureterocele versus mass. There are questionable ureterocele with measured 2.9 x 2.3 x 3.0 cm. Prostate volume measured 50.3 mL, mildly enlarged US/US retroperitoneal comp IMPRESSION: Unclear origin mass in the urinary bladder possibly ureterocele versus mass. Correlate with CT scan and cystoscopy. Nonobstructing calculus in interpolar cortex of left kidney Large residual amount of urine and mild prostate hypertrophy
== END 2024-05-06 13:42 | disposition home or self-care (01) ==
LOC: HO.US 13:41
PROVIDERS: PCP Internal Medicine; Visit Provider Internal Medicine
DX: R31.9 Hematuria, unspecified (principal)
CPT/HCPCS: 76770

== ENCOUNTER → 2024-05-21 23:59 | Outpatient (BNV) | payer MEDICARE, OTHER, SELFPAY ==
--- NOTE | 2024-05-29 09:04 | A.OFFVIS_ITS ---
Intake Visit Reasons: Remote device check- [facility] Allergies nut - unspecified [NUTS] Allergy (Unknown, Verified 05/06/24 11:19) ANAPHYLAXIS PFSH Medical History Elevated LFTs Essential hypertension Normally functioning cardiac pacemaker present History of GI bleed Gout HTN (hypertension) Hyperlipidemia Surgical History History of permanent cardiac pacemaker placement (~01/2016) Family History Father No problems noted. Mother No problems noted. Social History Housing: House Alcohol intake: current Alcohol intake frequency: a few times a week Patient Tobacco Use Status: Current everyday Tobacco user Tobacco use type: Cigar e-Cigarette/Vaping Use: Never Used service: No Current occupational status: retired Current occupational exposures/hazards: No Cognitive needs: No Hearing needs: No Vision needs: Yes Office Procedures Cardiac Device Check Cardiac Device Check Details: Date of service- 05/21/2024 ; Battery life >2 years; normal lead parameters; AP 16%; PERCH MACHINE INSPECTOR 29%; atrial tachycardia episodes, but brief. Overall normal device function. [id number] Cardiac Device Interrogation, pacemaker Procedure code (CPT) selection complete Assessment & Plan Assessment & Plan (1) Bradycardia: Code(s): R00.1 - Bradycardia, unspecified Category: Medical Plan x Coding Level of Care Code Procedure Only Diagnoses Bradycardia R00.1 CPT Codes Cardiac Device Check - Cardiac Device 12: [id number] Cardiac Device Interrogation, pacemaker ([id number])
== END ==
PROVIDERS: PCP Internal Medicine; Visit Provider Internal Medicine
DX: R00.1 Bradycardia, unspecified (principal); Z95.0 Presence of cardiac pacemaker
CPT/HCPCS: 93294

== ENCOUNTER 2024-06-20 13:28 | Outpatient (AMB) | payer MEDICARE, OTHER, SELFPAY ==
--- NOTE | 2024-06-20 13:47 | A.OFFVIS_ITS ---
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 Self who was accompanied by his at today's office visit. He has a past medical history of elevated LFTs, hypertension, gout, and hyperlipidemia. He presents to the office today as a new patient for gross hematuria. In discussion with the patient today reports having followed up with his PCP for episodes of gross hematuria he had been experiencing at which time a retroperitoneal ultrasound was ordered and performed. These results were reviewed with the patient today. Bilateral kidneys with no calculi, lesions, and or hydronephrosis. The bladder is partially distended. There is a filling defect questionably ureterocele verses mass. Prostate volume is approximately 50 mL. He does report over 60 year smoking history of tobacco via cigarettes and or cigars. It appears PCP has also ordered a CT urogram. Patient reports having scheduled CT for July 03. We discussed at length potential causes of gross hematuria as well as further workup to include in office cystoscopy. Education was provided regarding limiting/quitting tobacco. He otherwise denies any bothersome urinary issues. He denies urinary urgency, urinary frequency, incontinence, nocturia, dysuria, foul smelling urine, changes to urinary stream, flank pain, fever, and or chills. He is happy with his current voiding parameters. [facility] Medical History Elevated LFTs Essential hypertension Normally functioning cardiac pacemaker present History of GI bleed Gout HTN (hypertension) Hyperlipidemia Surgical History History of permanent cardiac pacemaker placement (~01/2016) Family History Father No problems noted. Mother No problems noted. Social History Housing: House Alcohol intake: current Alcohol intake frequency: a few times a week Patient Tobacco Use Status: Current everyday Tobacco user Tobacco use type: Cigar e-Cigarette/Vaping Use: Never Used service: No Current occupational status: retired Current occupational exposures/hazards: No Cognitive needs: No Hearing needs: No Vision needs: Yes Review of Systems Const Reports no additional complaints Eyes Reports no additional complaints ENT Reports no additional complaints Card Reports as per HPI Resp Reports no additional complaints GI Reports as per HPI Reports as per HPI Musc Reports as per HPI Neuro Reports no additional complaints Psych Reports no additional complaints Endo Reports no additional complaints Madi/Lymph Reports no additional complaints Aller/Immun Reports no additional complaints Physical Exam Const General: cooperative, healthy appearing, comfortable, no acute distress, well developed, alert and awake Nutritional Appearance: overweight Orientation/consciousness: patient oriented x3 Limitations: no limitations HEENT Head: Yes normal to inspection, Yes normocephalic and Yes atraumatic Ears: hearing grossly normal bilaterally Eyes General: appearance normal, both eyes and all related structures Neck Neck: Yes normal visual inspection and Yes trachea midline Chest Chest palpation & inspection: normal inspection of the chest Resp Effort & Inspection: normal respiratory effort and able to speak in complete sentences Cardio Rate: regular rate GI Inspection: Yes normal to inspection General: Yes no CVA tenderness Back/Spine/Pelvis Back: no CVA tenderness Skin General skin exam: no rashes or lesions noted Neuro General: patient oriented x3 Extrem General: Yes normal to inspection Psych Appearance: grossly normal and well kempt Mental Status: mental status grossly normal Speech and movement: Normal speech and movement present and Clear speech present Affect: normal affect Attitude: cooperative Thought process: Normal thought process present Thought content: Normal thought content present Insight: Fair insight present (Psych) Judgement: Fair judgement present (Psych) Results AMB Urinalysis, Automated UA Leukoctes 70 Elizabeth/uL Last Edit by Georgette Dewey on 06/20/24 14:02 UA Nitrite Negative Last Edit by Georgette Dewey on 06/20/24 14:02 UA Urobilinogen 0.2 mg/dL Last Edit by Georgette Dewey on 06/20/24 14:02 UA Protein 100 mg/dL Last Edit by Georgette Dewey on 06/20/24 14:02 UA pH 6.0 Last Edit by Georgette Dewey on 06/20/24 14:02 UA Blood 200 Siva/uL Last Edit by Georgette Dewey on 06/20/24 14:02 UA Specific Marshall 1.030 Last Edit by Georgette Dewey on 06/20/24 14:02 UA Ketone Positive Last Edit by Georgette Dewey on 06/20/24 14:02 UA Bilirubin 0 mg/dL Last Edit by Georgette Dewey on 06/20/24 14:02 UA Glucose 0 mg/dL Last Edit by Georgette Dewey on 06/20/24 14:02 Results Reviewed Results Reviewed: Laboratory Last Values Urine pH (Auto) 6.0 06/20/24 13:50 Specific Marshall (Auto) 1.030 06/20/24 13:50 Urine Protein (Auto) 100 mg/dL 06/20/24 13:50 Glucose (UA)(Auto) 0 mg/dL 06/20/24 13:50 Urine Ketones (Auto) Positive 06/20/24 13:50 Urine Blood (Auto) 200 Siva/uL 06/20/24 13:50 Urine Nitrite (Auto) Negative 06/20/24 13:50 Urine Bilirubin (Auto) 0 mg/dL 06/20/24 13:50 Urine Urobilinogen (Auto) 0.2 mg/dL 06/20/24 13:50 Leukocyte Esterase (Auto) 70 Elizabeth/uL 06/20/24 13:50 Date of Service: 05/06/24 EXAMINATION: US RETROPERITONEAL COMPLETE (RENAL) FINDINGS: RIGHT KIDNEY: 12.0 x 5.8 x 5.1 cm cm (SAG x AP x TRV). The kidney is normal in size, contour, and echogenicity. Renal cortical thickness is normal. No calculi or focal parenchymal lesions. No hydronephrosis. LEFT KIDNEY: 12.1 x 5.7 x 5.4 cm. cm (SAG x AP x TRV). The kidney is normal in size, contour, and echogenicity. Renal cortical thickness is normal. No focal parenchymal lesions. No hydronephrosis. Calcifications measured 0.4 x 0.2 x 0.4 cm interpolar cortex. BLADDER: Partially distended with prevoid volume of 1 46 mL.. Ureteral injected seen on the right only. Postvoid bladder volume is 103 mL there is filling defect questionably ureterocele versus mass. There are questionable ureterocele with measured 2.9 x 2.3 x 3.0 cm. Prostate volume measured 50.3 mL, mildly enlarged IMPRESSION: Unclear origin mass in the urinary bladder possibly ureterocele versus mass. Correlate with CT scan and cystoscopy. Nonobstructing calculus in interpolar cortex of left kidney Large residual amount of urine and mild prostate hypertrophy Assessment & Plan Assessment & Plan (1) Bladder mass: Code(s): N32.89 - Other specified disorders of bladder Category: Medical (2) Hematuria: Code(s): R31.9 - Hematuria, unspecified Category: Medical (3) Enlarged prostate: Code(s): N40.0 - Benign prostatic hyperplasia without lower urinary tract symptoms Category: Medical Plan In office urinalysis results reviewed with the patient today; as noted above; will send for urine cytology. Discussed at length potential causes of gross hematuria we discussed ureterocele versus bladder mass. Recent retroperitoneal ultrasound results reviewed with the patient and his today; as noted above. Patient currently denies any bothersome urinary issues. Discussed, educated, stressed the importance of limiting/quitting tobacco dependence for overall health and well-being. Patient with scheduled CT urogram Follow-up next available in office cystoscopy Follow-up per doctor's orders; or sooner with any issues, concerns, and or questions. Orders: Orders AMB Urinalysis Automated Today Z13.9 - Encounter for screening, unspecified Urine Cytology Today R31.9 - Hematuria, unspecified Patient Instructions: The patient had an opportunity to ask questions regarding the treatment plan. All questions were answered. Physical exam, labs, and imaging were discussed and reviewed in detail. As well as risks, benefits, and discussion of treatment choices. No major barriers to understanding were identified. The patient expressed understanding and agreement with the above treatment plan. The patient was made aware they should contact our office by phone for worsening of their current condition, the appearance of new symptoms, or with any questions or concerns. Compliance is encouraged with any medications and follow up testing that is ordered. It is a privilege to be allowed the opportunity to participate in? your urological care.? Again, if you have any questions or concerns If you have any questions or concerns please do not hesitate to contact me. The office is [phone]. This note is constructed using voice recognition software. While every effort has been made to ensure accuracy sandwich peddler errors may have been included. Yours sincerely, CHRISSIE Guerra- Coding Level of Care Code New Pt Level 3 (52136) Diagnoses Bladder mass N32.89 Hematuria R31.9 Enlarged prostate N40.0
== END 2024-06-20 14:29 | disposition home or self-care (01) ==
PROVIDERS: PCP Internal Medicine; Visit Provider Nurse Practitioner Family
DX: N32.89 Other specified disorders of bladder (principal); R31.9 Hematuria, unspecified; N40.0 Benign prostatic hyperplasia without lower urinary tract symptoms; Z13.9 Encounter for screening, unspecified
CPT/HCPCS: 99203

== ENCOUNTER 2024-06-20 13:28 | Outpatient (REF) | payer MEDICARE, OTHER, SELFPAY ==
[2024-06-20 16:08] LABS: Urine Cytology See Pathology rpt
== END 2024-06-20 13:29 | disposition home or self-care (01) ==
LOC: HO.LNP 13:28
PROVIDERS: PCP Internal Medicine; Visit Provider Nurse Practitioner Family
DX: R31.9 Hematuria, unspecified (principal); N32.89 Other specified disorders of bladder; N40.0 Benign prostatic hyperplasia without lower urinary tract symptoms
CPT/HCPCS: 81003; 88112; 99202

== ENCOUNTER 2024-07-03 07:58 | Outpatient (REF) | payer MEDICARE, OTHER, SELFPAY ==
--- NOTE | ~2024-07-03 | CT_ITS ---
EXAMINATION: CT ABDOMEN AND PELVIS WITHOUT AND WITH CONTRAST CLINICAL INFORMATION: Bladder disorder. COMPARISON: Renal ultrasound May 06, 2024 TECHNIQUE: Multidetector volumetric imaging was performed of the abdomen and pelvis before and after the IV administration of 85 mL of Omnipaque 350 intravenous contrast. Sagittal and coronal reformatted images were obtained on the technologist's workstation. This CT examination was performed using dose optimization techniques as appropriate, variously including the following: *Automated exposure control *Adjustment of mA and/or kV according to patient size (this includes techniques or standardized protocols for targeted exams where dose is matched to indication/reason for exam; i.e. extremities or head) *Use of iterative reconstruction technique DLP: 1190 mGy-cm FINDINGS: LUNG BASES: The visualized lung bases are unremarkable. LIVER, GALLBLADDER, AND BILIARY TREE: The liver is decreased in attenuation. 2.3 x 2.4 x 2.3 cm enhancing posterior right hepatic lesion. No biliary ductal dilatation is present. Gallstones. PANCREAS: No ductal dilatation. SPLEEN: Not enlarged. ADRENAL GLANDS: No adrenal mass. KIDNEYS AND URETERS: The kidneys are symmetric in size and enhancement. Delayed images demonstrate intact renal function. No renal or ureteral calculus. Nonspecific bilateral perinephric screening. Bilateral collecting systems and opacified portions of the ureters are nondilated and without obvious filling defects. BLADDER: Polypoid mass slightly hyperdense on precontrast imaging adherent to the left bladder wall measures 3.0 x 3.3 x 2.7 cm. GASTROINTESTINAL TRACT: Questionable filling defect in the rectosigmoid colon on image 76 of series 8. No small bowel obstruction. ABDOMINAL WALL: Bilateral fat-containing inguinal hernias. LYMPH NODES: No bulky lymphadenopathy. VASCULAR: Normal caliber abdominal aorta. Marked atherosclerotic vascular location. PELVIC VISCERA: Enlarged prostate gland. OSSEOUS STRUCTURES: No destructive bone lesions. Advanced degenerative changes of bilateral hips. CT/CT abdomen pelvis wo/w IV con IMPRESSION: Solid polypoid enhancing mass adherent to the left bladder wall measuring 3.0 x 3.2 x 2.7 cm likely represents bladder neoplasm. Consultation with urology and cystoscopic correlation are recommended. 2.3 x 2.4 x 2.3 cm enhancing posterior right hepatic lesion may represent hepatic hemangioma. Further characterization with MRI abdomen is recommended. Marked prostatomegaly. Questionable filling defect in the rectosigmoid colon versus fecal matter. Consider correlation with direct visualization. Cholelithiasis. Hepatic steatosis. Electronically signed by: Cholo Davidson MD 07/03/2024 01:09 PM EDT RP
[2024-07-03] MEDS: iohexoL 350 MG/ML 100 ML INFUS..BTL IV (08:43)
[2024-07-07 08:11] LABS: Creatinine POC 1.1 mg/dL (0.5-1.4); GFR POC > 60
== END 2024-07-03 07:59 | disposition home or self-care (01) ==
LOC: HO.CT 07:58
PROVIDERS: PCP Internal Medicine; Visit Provider Internal Medicine
DX: N32.89 Other specified disorders of bladder (principal); N20.0 Calculus of kidney
CPT/HCPCS: 74178; 82565; Q9967

== ENCOUNTER 2024-08-01 13:29 | Outpatient (AMB) | payer MEDICARE, OTHER, SELFPAY ==
--- NOTE | 2024-08-01 13:53 | A.OFFVIS_ITS ---
Intake Visit Reasons: Cystoscopy(Bladder Mass) Intake Note: Patient is Present for Cystoscopy(Bladder Mass) Urology Med: Tamsulosin Antibiotic Allergy:None Blood Thinner: None Recent A1C: 5.7 URO- G Disposable Cystoscope lot: [id number] exp:01/30/2007 Reeling Machine Operator Required: No Accompanied by: Self / Same As Patient Allergies nut - unspecified [NUTS] Allergy (Severe, Verified 09/08/24 11:44) ANAPHYLAXIS HPI Comments Details: Ricardo is a pleasant male. He is a patient of Dr. Self. He seen for the following urologic conditions - bladder mass - bladder cancer on cystoscopy Bladder mass noted on cystoscopy today Plan TURBT Bladder cancer Cystoscopy left sidewall bladder cancer 3 cm Initial evaluation for presentation with gross hematuria Prostate volume 50 cc 60 year pack per day smoking history Imaging - CT Urogram 07/15 Polypoid mass slightly hyperdense on precontrast imaging adherent to the left bladder wall measures 3.0 x 3.3 x 2.7 cm PFSH Medical History (Updated 09/08/24 @ 12:59 by Salomón Page MD) Elevated LFTs Essential hypertension Normally functioning cardiac pacemaker present History of GI bleed Gout HTN (hypertension) Hyperlipidemia Surgical History (Updated 09/08/24 @ 11:46 by Yenifer Magallon RN) History of surgical removal of pilonidal cyst History of esophagogastroduodenoscopy (EGD) History of permanent cardiac pacemaker placement (~01/2016) Family History Father No problems noted. Mother No problems noted. Social History Housing: House Are you a primary healthcare technician to a significant other at home: No Do you presently have visiting nurse or other home services: No Alcohol intake: current Alcohol intake frequency: 0-2 drinks per day Patient Tobacco Use Status: Current everyday Tobacco user Tobacco use type: Cigar Smoked in Last 30 Days: Yes e-Cigarette/Vaping Use: Never Used Use of substances other than those prescribed or required for medical reasons: No Have you been hit, kicked, punched, or otherwise hurt by someone within the past year? If so, by whom?: No Are you DNR?: No Advance Directives: No Advance Directives Information Provided: Yes ( Grisel) Advance Directives on File: No Recently lost weight without trying: No How much weight loss: Not applicable Eating poorly because of decreased appetite: No Nutrition screen score: 0 Nutrition Risks: No Nutritional Risk Poor oral hygiene: No service: No Current occupational status: retired Current occupational exposures/hazards: No Cognitive needs: No Hearing needs: No Vision needs: Yes Review of Systems Const Denies chills and Denies fever(s) Card Reports no additional complaints and Denies syncope Resp Denies cough GI Denies abdominal pain and Denies heartburn Reports as per HPI and Denies change in libido Neuro Denies syncope Psych Denies change in libido Endo Denies change in libido Physical Exam Const General: cooperative, healthy appearing, comfortable and no acute distress Orientation/consciousness: patient oriented x3 HEENT Face and sinus: Yes normal facial exam Mouth: moist mucous membranes Neck Neck: Yes normal visual inspection, Yes full ROM and Yes trachea midline Chest Chest palpation & inspection: normal inspection of the chest Resp Effort & Inspection: normal respiratory effort, able to speak in complete sentences and no respiratory distress GI Inspection: Yes normal to inspection Back/Spine/Pelvis Cervical Spine: normal cervical lordosis Thoracic/Lumbar Spine: thoracic and lumbar spine normal to inspection Skin General skin exam: no rashes or lesions noted Neuro General: patient oriented x3, gait normal, tone normal and moves all extremities Extrem General: Yes normal to inspection and Yes capillary refill normal Office Procedures Cystoscopy Consent Discussed risk and benefit or proposed procedure with the patient. Information consent for procedure given to the patient. Discussed technical aspects, risks, benefits and alternatives in full. Addressed all of the patient's questions and concerns regarding the procedure. The patient demonstrated knowledge and understanding. They wish to proceed with this procedure. Preparation The patient was prepped in the usual manner. A buckle sewer was present and in the room. Genitalia was prepped with betadine solution in a sterile manner. Lidoc barbie Jelly 2% was placed into the urethra and 16Fr flexible Olympus cystoscope was inserted into the meatus after adequate lubrication. Procedure Cystoscopy performed using a disposable [employer] Holdingsv[employer] Decimal digital 16 Uzbek cystoscope. Meatus circumcised Urethra anterior and posterior urethra normal Prostatic Urethra unremarkable Bladder examination with retroflexion of cystoscope Bladder Orifices normal shape and position Bladder Capacity median Trabeculations grade 1/2 Cellule Formation - Diverticulum Formation - Mucosal Erythema - Bladder Tumor 3 cm lesion with satellite lesions as described on imaging [id number] DISPOSABLE SCOPE URO-G FLEXIBLE SCOPE Procedure code (CPT) selection complete Office Meds lidocaine HCl 2 % mucosal jelly in applicator Performing Provider: Salomón Page MD Performing Location: [facility] Administered by: Michele Hong LPN on 08/01/24 14:15 Dose Route Admin Location Dispensed Lot Number Expiration Date NDC Ocean Forwarder 10 mL intra-urethral 10 mL nitrofurantoin monohydrate/macrocrystals 100 mg capsule Performing Provider: Salomón Page MD Performing Location: [facility] Administered by: Michele Hong LPN on 08/01/24 14:15 Dose Route Admin Location Dispensed Lot Number Expiration Date NDC Ocean Forwarder 100 mg PO 1 cap naproxen 500 mg tablet Performing Provider: Salomón Page MD Performing Location: [facility] Administered by: Michele Hong LPN on 08/01/24 14:15 Dose Route Admin Location Dispensed Lot Number Expiration Date NDC Ocean Forwarder 500 mg PO 1 tab Results AMB Urinalysis, Automated UA Leukoctes 0 Elizabeth/uL Last Edit by Kaylyn Pereira [facility] on 08/01/24 14:14 UA Nitrite Negative Last Edit by Kaylyn Pereira [facility] on 08/01/24 14:14 UA Urobilinogen 0.2 mg/dL Last Edit by Kaylyn Pereira [facility] on 08/01/24 14:1 4 UA Protein 30 mg/dL Last Edit by Kaylyn Pereira [facility] on 08/01/24 14:14 UA pH 5.5 Last Edit by Kaylyn Pereira [facility] on 08/01/24 14:14 UA Blood 200 Siva/uL Last Edit by Kaylyn Pereira [facility] on 08/01/24 14:14 UA Specific [place] 1.025 Last Edit by Kaylyn Pereira [facility] on 08/01/24 14: 14 UA Ketone Negative Last Edit by Kaylyn Pereira [facility] on 08/01/24 14:14 UA Bilirubin 0 mg/dL Last Edit by Kaylyn Pereira [facility] on 08/01/24 14:14 UA Glucose 0 mg/dL Last Edit by GISELLE Turner on 08/01/24 14:14 Results Reviewed Results Reviewed: Laboratory Last Values Urine pH (Auto) 5.5 08/01/24 14:02 Specific [place] (Auto) 1.025 08/01/24 14:02 Urine Protein (Auto) 30 mg/dL 08/01/24 14:02 Glucose (UA)(Auto) 0 mg/dL 08/01/24 14:02 Urine Ketones (Auto) Negative 08/01/24 14:02 Urine Blood (Auto) 200 Siva/uL 08/01/24 14:02 Urine Nitrite (Auto) Negative 08/01/24 14:02 Urine Bilirubin (Auto) 0 mg/dL 08/01/24 14:02 Urine Urobilinogen (Auto) 0.2 mg/dL 08/01/24 14:02 Leukocyte Esterase (Auto) 0 Elizabeth/uL 08/01/24 14:02 Assessment & Plan Assessment & Plan (1) Bladder cancer: Code(s): C67.9 - Malignant neoplasm of bladder, unspecified Category: Medical Plan Risks, benefits and alternatives to therapy were discussed. These include but are not limited to infection, bleeding, damage to local organs and tissues, need for further interventions. Anesthetic risks regarding cardiac arrhythmia, blood clots, and potential mortality were discussed. The patient understands the typical recovery time and the outpatient nature of the procedure. After consideration of these risks the patient gives full informed consent and they wish to move ahead with the procedure. Cystoscopy, resection bladder cancer, possible bladder immunotherapy Orders: Orders AMB Urinalysis Automated 08/01/24 Z13.9 - Encounter for screening, unspecified AMB Cystoscopy 08/01/24 N32.89 - Other specified disorders of bladder Patient Instructions: Imaging studies, laboratory and physical exam results were discussed and reviewed in detail. No major barriers to patient understanding were identified. An opportunity to ask questions regarding the treatment plan was provided. All questions were answered. The patient expressed understanding and agreement with the above treatment plan. The patient is aware they should contact our office by phone for worsening of their current condition or the appearance of new urologic symptoms. Compliance is encouraged with any medications and followup testing that is ordered. It is a privilege to participate in the urologic care of your patient. If you have any questions or concerns regarding treatment for the above conditions, or other urologic issues, please do not hesitate to contact me. The office telephone contact is [phone]. This note is constructed using voice recognition software. While every effort has been made to ensure accuracy dividend deposit voucher clerk errors may have been included. Yours sincerely, Dr Salomón Page MD, [facility] - Urology Providers of Expert, Compassionate Care for the Genitourinary System Coding Level of Care Code Est Pt Level 4 (13474) Diagnoses Bladder cancer C67.9 CPT Codes Cystoscopy - CPT: 61572-[id number] ([id number])
== END 2024-08-01 15:13 | disposition home or self-care (01) ==
PROVIDERS: PCP Internal Medicine; Visit Provider Urology
DX: N32.89 Other specified disorders of bladder (principal); Z13.9 Encounter for screening, unspecified
CPT/HCPCS: 52000; 99214

== ENCOUNTER → 2024-08-01 13:29 | Outpatient (BNVA) | payer MEDICARE, OTHER, SELFPAY | PROVIDERS: PCP Internal Medicine; Visit Provider Urology | DX: C67.9 Malignant neoplasm of bladder, unspecified (principal) | CPT/HCPCS: 52000; 81003; 99212 ==

== ENCOUNTER 2024-08-13 09:41 | Outpatient (REF) | payer MEDICARE, OTHER, SELFPAY ==
[2024-08-13 11:08] VITALS: PULSE 79; RESP 16; O2SAT 97
--- NOTE | 2024-08-13 11:16 | PFT_ITS ---
Flows: FEV1: 101 % of predicted at 3.17 L FVC: 105 % of predicted at 4.52 L FEV1/FVC: 70 % Bronchodilator response: Not performed Volumes: Total lung capacity: 85 % of predicted at 6.85 L Residual volume: 73 % of predicted at 2.33 L Slow vital capacity: 99 % of predicted at 4.52 L Expiratory reserve volume: 53 % of predicted at 0.79 L Diffusion capacity: Normal Impression: No obstructive or restrictive ventilatory defect. Bronchodilator testing was not performed. Essentially normal pulmonary function test. MTDD
== END 2024-08-13 09:42 | disposition home or self-care (01) ==
LOC: HO.RESP 09:41
PROVIDERS: PCP Internal Medicine; Visit Provider Internal Medicine
DX: R06.02 Shortness of breath (principal)
CPT/HCPCS: 94010; 94640; 94727; 94729

== ENCOUNTER → 2024-08-13 11:16 | Outpatient (BNV) | payer MEDICARE, OTHER, SELFPAY | PROVIDERS: PCP Internal Medicine; Visit Provider Internal Medicine Pulmonary Disease | DX: R06.02 Shortness of breath (principal) | CPT/HCPCS: 94060; 94727; 94729 ==

== ENCOUNTER 2024-08-18 13:34 | Outpatient (AMB) | payer MEDICARE, OTHER, SELFPAY ==
[2024-08-18 14:02] VITALS: BP 126/68; PULSE 71; BMI 31.4
--- NOTE | 2024-08-18 14:02 | MHC.OFFVIS ---
Vital Signs 08/18/24 14:02 Height 6 ft 2 in Weight 244 lb 11.41 oz BMI 31.4 BP 126/68 Blood Pressure Location Lt brachial Position Sitting Pulse 71 Pulse Source Monitor Intake Visit Reasons: urology surgical procedure Allergies nut - unspecified [NUTS] Allergy (Unknown, Verified 08/01/24 13:58) ANAPHYLAXIS Medication List - Last Reconciled 08/18/24 by Victorino Uriostegui MD allopurinol 200 mg (2 x 100 mg) PO DAILY diltiazem HCl CD 120 mg PO DAILY lisinopril 5 mg PO DAILY simvastatin 5 mg PO BEDTIME HPI Comments Details: Ricardo returns for follow-up. To recall, several years ago he underwent workup for syncope. 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 Currently, he records preoperative evaluation for bladder cancer surgery. He states he feels fine. Absolutely no complaints like angina or in fact anything cardiac sounding. He is functional without any major limitations. [facility] Medical History Elevated LFTs Essential hypertension Normally functioning cardiac pacemaker present History of GI bleed Gout HTN (hypertension) Hyperlipidemia Surgical History History of permanent cardiac pacemaker placement (~01/2016) Family History Father No problems noted. Mother No problems noted. Social History Housing: House Alcohol intake: current Alcohol intake frequency: a few times a week Patient Tobacco Use Status: Current everyday Tobacco user Tobacco use type: Cigar e-Cigarette/Vaping Use: Never Used service: No Current occupational status: retired Current occupational exposures/hazards: No Cognitive needs: No Hearing needs: No Vision needs: Yes Review of Systems Const Denies weakness ENT Denies dizziness Card Denies chest pain, Denies chest pain with activity, Denies syncope, Denies rapid heart rate, Denies pedal edema, Denies edema, Denies leg edema, Denies lightheadedness, Denies palpitations, Denies dyspnea, Denies dyspnea on exertion and Denies orthopnea Resp Denies cough, Denies dyspnea and Denies dyspnea on exertion GI Denies hematochezia and Denies change in stool character Musc Denies abnormal gait, Denies muscle cramps, Denies muscle weakness, Denies numbness, Denies radiating pain into limb and Denies tingling Neuro Denies abnormal gait, Denies dizziness, Denies syncope, Denies numbness, Denies tingling and Denies weakness Endo Denies palpitations Physical Exam Vital Signs: Last Vital Signs Pulse 71 08/18/24 14:02 BP 126/68 08/18/24 14:02 BMI result Body Mass Index 31.4 Const General: comfortable and no acute distress Orientation/consciousness: patient oriented x3 HEENT Other: Unremarkable Head: Yes normal to inspection Neck Neck: Yes normal visual inspection Chest Chest palpation & inspection: normal inspection of the chest Resp Auscultation: clear to auscultation bilaterally Cardio Palpation: normal PMI Heart sounds: S1 normal heart sound present, S2 normal heart sound present, no gallops, Murmur heart sound present systolic I/ and at the right sternal border and no rubs GI Palpation (GI): Soft to palpation Back/Spine/Pelvis Other: unremarkable Skin General skin exam: no rashes or lesions noted Neuro General: patient oriented x3 Extrem General: Yes normal to inspection Psych Mental Status: mental status grossly normal Office Procedures EKG Details: EKG with underlying sinus rhythm at 71/Min; slightly prolonged [place]; right bundle-branch block pattern. [id number], Complete Assessment & Plan Assessment & Plan (1) Pre-operative cardiovascular examination: Code(s): Z01.810 - Encounter for preprocedural cardiovascular examination Category: Medical Plan: Intermediate cardiac risk for proposed urologic procedure. When proceed as planned. Cardiac risks including perioperative myocardial infarction discussed. He understands. Also discussed with significant other. (2) RBBB: Code(s): I45.10 - Unspecified right bundle-branch block Category: Medical Plan: No specific consequence. 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 Already has a pacemaker. (3) Essential hypertension: Code(s): I10 - Essential (primary) hypertension Category: Medical Plan: Stable. On lisinopril. (4) Nonrheumatic aortic (valve) stenosis: Code(s): I35.0 - Nonrheumatic aortic (valve) stenosis Category: Medical Plan: Mild aortic stenosis on the echocardiogram. We will follow clinically and by echocardiogram. (5) NSVT (nonsustained ventricular tachycardia): Code(s): I47.2 - Ventricular tachycardia Category: Medical Plan: Noted on device check previously. Then, diltiazem was added. In the echocardiogram, LVEF is 56%. No wall motion abnormalities. In the myocardial perfusion imaging study, possible ischemia versus diaphragmatic artifact in the inferior/inferolateral wall. Considering his body habitus, more likely to be artifactual especially in the absence of angina. (6) Normally functioning cardiac pacemaker present: Code(s): Z95.0 - Presence of cardiac pacemaker Category: Medical Plan: Normal function. Follow remotely. Coding Level of Care Code Est Pt Level 4 (28068) Diagnoses Pre-operative cardiovascular examination Z01.810 RBBB I45.10 Essential hypertension I10 Nonrheumatic aortic (valve) stenosis I35.0 NSVT (nonsustained ventricular tachycardia) I47.2 Normally functioning cardiac pacemaker present Z95.0 CPT Codes EKG - CPT: 37790-[id number], Complete ([id number])
== END 2024-08-18 14:26 | disposition home or self-care (01) ==
LOC: HO.HCS 13:35
PROVIDERS: PCP Internal Medicine; Visit Provider Internal Medicine
DX: I45.10 Unspecified right bundle-branch block (principal); I10 Essential (primary) hypertension; I35.0 Nonrheumatic aortic (valve) stenosis; I47.20 Ventricular tachycardia, unspecified; Z95.0 Presence of cardiac pacemaker; Z01.810 Encounter for preprocedural cardiovascular examination
CPT/HCPCS: 93010; 99214

== ENCOUNTER → 2024-08-18 13:34 | Outpatient (BNVA) | payer MEDICARE, OTHER, SELFPAY | PROVIDERS: PCP Internal Medicine; Visit Provider Internal Medicine | DX: Z01.810 Encounter for preprocedural cardiovascular examination (principal); I45.10 Unspecified right bundle-branch block; I10 Essential (primary) hypertension; I35.0 Nonrheumatic aortic (valve) stenosis; I47.20 Ventricular tachycardia, unspecified; F17.290 Nicotine dependence, other tobacco product, uncomplicated; Z95.0 Presence of cardiac pacemaker | CPT/HCPCS: 93005; 99212 ==

== ENCOUNTER → 2024-08-20 23:59 | Outpatient (BNV) | payer MEDICARE, OTHER, SELFPAY ==
--- NOTE | 2024-08-25 13:52 | MHC.OFFVIS ---
Intake Visit Reasons: Remote device check- [facility] Allergies nut - unspecified [NUTS] Allergy (Unknown, Verified 08/01/24 13:58) ANAPHYLAXIS PFSH Medical History Elevated LFTs Essential hypertension Normally functioning cardiac pacemaker present History of GI bleed Gout HTN (hypertension) Hyperlipidemia Surgical History History of permanent cardiac pacemaker placement (~01/2016) Family History Father No problems noted. Mother No problems noted. 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 Overall normal device function. [id number] Cardiac Device Interrogation, pacemaker Procedure code (CPT) selection complete Assessment & Plan Assessment & Plan (1) Encounter for interrogation of cardiac pacemaker: Comment: 2015, Code(s): Z45.018 - Encounter for adjustment and management of other part of cardiac pacemaker Category: Medical (2) Bradycardia: Code(s): R00.1 - Bradycardia, unspecified Category: Medical Plan x Coding Level of Care Code Procedure Only Diagnoses Encounter for interrogation of cardiac pacemaker Z45.018 Bradycardia R00.1 CPT Codes Cardiac Device Check - Cardiac Device 12: [id number] Cardiac Device Interrogation, pacemaker ([id number])
== END ==
PROVIDERS: PCP Internal Medicine; Visit Provider Internal Medicine
DX: R00.0 Tachycardia, unspecified (principal); Z95.0 Presence of cardiac pacemaker
CPT/HCPCS: 93294

== ENCOUNTER 2024-09-02 07:39 | Outpatient (REF) | payer MEDICARE, OTHER, SELFPAY ==
[2024-09-02 09:07] LABS: Blood Urea Nitrogen 23 mg/dL (9-16); Estimated Glomerular Filt Rate 56
== END 2024-09-02 07:40 | disposition home or self-care (01) ==
LOC: HO.LAB 07:39
PROVIDERS: PCP Internal Medicine; Visit Provider Internal Medicine
DX: N32.89 Other specified disorders of bladder (principal)
CPT/HCPCS: 36415; 82565; 84520

== ENCOUNTER 2024-09-08 10:43 | Day surgery (SDC) | payer MEDICARE, OTHER, SELFPAY ==
[2024-09-04 09:59] VITALS: BMI 31.5
[2024-09-04 14:58] VITALS: BP 103/56; PULSE 66; RESP 16; TEMP 36.1; O2SAT 94
--- NOTE | 2024-09-05 12:12 | P.CONAN_ITS ---
Documented by User: Beckie Lubin NP 09/05/24 12:15 HPI - Anesthesia Eval Consult details Narrative: 83yo M for Transurethral Incision of Bladder with mitomycin cytarabine Pacer in situ Follows [facility] [place]. Optimized per 07/2024 office visit. [facility] Active Problems Active Problems: All Active Problems Nonrheumatic aortic (valve) stenosis (Acute) Pre-operative cardiovascular examination (Acute) Enlarged prostate (Acute) Bradycardia (Acute) Nephrolithiasis (Acute) Bladder mass (Acute) SOB (shortness of breath) (Acute) Annual physical exam (Acute) Hematuria (Acute) Sebaceous cyst (Acute) Callus of foot (Acute) RBBB (Acute) Heart block (Acute) Bifascicular block (Acute) Syncope (Acute) NSVT (nonsustained ventricular tachycardia) (Acute) Hyperglycemia (Acute) Encounter for interrogation of cardiac pacemaker (Acute) Elevated LFTs (Acute) Hyperlipidemia (Acute) Essential hypertension (Acute) Normally functioning cardiac pacemaker present (Acute) History of GI bleed (Acute) Gout (Acute) Past Medical History Medical History (Updated 09/08/24 @ 12:59 by Salomón Page MD) Elevated LFTs Essential hypertension Normally functioning cardiac pacemaker present History of GI bleed Gout HTN (hypertension) Hyperlipidemia Family History Family History Father No problems noted. Mother No problems noted. Surgical History Surgical History (Updated 09/08/24 @ 11:46 by Yenifer Magallon RN) History of surgical removal of pilonidal cyst History of esophagogastroduodenoscopy (EGD) History of permanent cardiac pacemaker placement (~01/2016) Social History Social History Housing: House Are you a primary lawn care specialist to a significant other at home: No Do you presently have visiting nurse or other home services: No Alcohol intake: current Alcohol intake frequency: 0-2 drinks per day Patient Tobacco Use Status: Current everyday Tobacco user Tobacco use type: Cigar Smoked in Last 30 Days: Yes e-Cigarette/Vaping Use: Never Used Use of substances other than those prescribed or required for medical reasons: No Have you been hit, kicked, punched, or otherwise hurt by someone within the past year? If so, by whom?: No Are you DNR?: No Advance Directives: No Advance Directives Information Provided: Yes ( Grisel) Advance Directives on File: No Recently lost weight without trying: No How much weight loss: Not applicable Eating poorly because of decreased appetite: No Nutrition screen score: 0 Nutrition Risks: No Nutritional Risk Poor oral hygiene: No service: No Current occupational status: retired Current occupational exposures/hazards: No Cognitive needs: No Hearing needs: No Vision needs: Yes Meds Allergies Allergy/AdvReac Type Severity Reaction Status Date / Time nut - unspecified [NUTS] Allergy Severe ANAPHYLAXIS Verified 09/08/24 11:44 Exam Height,Weight and Vital Signs: Height 6 ft 2 in Weight 111.13 kg Pertinent Lab Results Pertinent Lab Results: Laboratory Tests 05/01/24 09/02/24 08:40 07:52 WBC 6.5 Hgb 14.4 Hct 42.8 Plt Count 218 Sodium 138 Potassium 4.3 Chloride 110 H Carbon Dioxide 21 L BUN 23 H Creatinine 1.24 Narrative Narrative: EKG 07/2024 Details: EKG with underlying sinus rhythm at 71/Min; slightly prolonged [place]; right bundle- branch block pattern. 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 Overall normal device function. ECHO 03/2024 Conclusions: - The left ventricular systolic function is normal. The calculated ejection fraction is 56% by biplane method. - There is mild aortic valve stenosis. NM cardiolite stress test 03/2024 Impression: 1. Myocardial perfusion imaging study shows reversible inferior/inferolateral defect. Possible ischemia. Can also be from diaphragmatic attenuation artifact. (Per cardiac clearance note, likely artifact d/t body habitus) 2. Gated LVEF is 65% during stress and 58% during rest. 3. Transient ischemic dilatation not present. Assessment and Plan Assessment Anesthesia Assessment: Chart Reviewed Documented by User: Keeley Scott MD 09/08/24 13:19 [facility] Past Medical History Medical History (Updated 09/08/24 @ 12:59 by Salomón Page MD) Elevated LFTs Essential hypertension Normally functioning cardiac pacemaker present History of GI bleed Gout HTN (hypertension) Hyperlipidemia Family History Family History Father No problems noted. Mother No problems noted. Family history of problems with anesthesia: No Surgical History Surgical History (Updated 09/08/24 @ 11:46 by Yenifer Magallon RN) History of surgical removal of pilonidal cyst History of esophagogastroduodenoscopy (EGD) History of permanent cardiac pacemaker placement (~01/2016) History of Problems with Anesthesia: No Social History Social History Housing: House Are you a primary lawn care specialist to a significant other at home: No Do you presently have visiting nurse or other home services: No Alcohol intake: current Alcohol intake frequency: 0-2 drinks per day Patient Tobacco Use Status: Current everyday Tobacco user Tobacco use type: Cigar Smoked in Last 30 Days: Yes e-Cigarette/Vaping Use: Never Used Use of substances other than those prescribed or required for medical reasons: No Have you been hit, kicked, punched, or otherwise hurt by someone within the past year? If so, by whom?: No Are you DNR?: No Advance Directives: No Advance Directives Information Provided: Yes ( Grisel) Advance Directives on File: No Recently lost weight without trying: No How much weight loss: Not applicable Eating poorly because of decreased appetite: No Nutrition screen score: 0 Nutrition Risks: No Nutritional Risk Poor oral hygiene: No service: No Current occupational status: retired Current occupational exposures/hazards: No Cognitive needs: No Hearing needs: No Vision needs: Yes Meds Allergies Allergy/AdvReac Type Severity Reaction Status Date / Time nut - unspecified [NUTS] Allergy Severe ANAPHYLAXIS Verified 09/08/24 11:44 Exam Airway Mallampati Class: II TM Dist: >3cm Neck ROM: Full Heart: rrr Lungs: cta Assessment and Plan Assessment Anesthesia Assessment: Anesthesia Plan Discussed Final Anesthetic Review Family History of Problems with Anesthesia: No History of Problems with Anesthesia: No NPO: Yes ASA Class: III Final Preanesthetic Review: No Changes in Pt Med Stat, Meds/Allgs Chart Reviewed and Consent Obtained/Reviewed Patient Risk: Intermediate Procedure Risk: Low Anesthetic Plan Anesthetic Plan: GA Disposition: Standard PACU
[2024-09-08] VITALS (9 sets, daily range): BP systolic 103–142; BP diastolic 50–71; PULSE 60–80; RESP 16–18; TEMP 36.6–36.9; O2SAT 96–97; BMI 32.0
[2024-09-08] MEDS: Lactated Ringers 1,000 ML 100 ML IVCONT (11:39)
--- NOTE | 2024-09-08 13:04 | MHC.SHP ---
Pre-Procedural Eval Section A - 24 Hr Update-Section A only Date of Service: 09/08/24 The patient is an INPATIENT: No Changes since office visit: No Cold of Flu in the past 2 weeks, No New Medical Problems, No Changes in Medication and No Patient answered all questions The patient has been examined within 24 hours of the surgical procedure. The History & Physical has been completed within 30 days and I have reviewed it.: Yes Section B - Complete if H&P > 30 days Chief Complaint: Malignant neoplasm of bladder, unspecified Details of Present Illness: TURBT with mitomycin-C cytarabine Relevant Family History (Specify if Yes): No Relevant Social History: None Present Medications: see Short Stay Collaborative assessment Medical History: No relevant PMH History of Previous Operations: No relevant previous surgery Allergies: Allergies Allergy/AdvReac Type Severity Reaction Status Date / Time nut - unspecified [NUTS] Allergy Severe ANAPHYLAXIS Verified 09/08/24 11:44 Review of Systems Sugical H&P ROS: Negative: Constitution, Cardiovascular, Respiratory, Neurological, Psychiatric, Hem-Onc, Allergic/Immunologic, Gastrointestinal, Genitourinary, Musculoskeletal, Integumentary, Endocrine and Eyes/Ears/Nose/Throat Exam Surgical H&P Exam: Normal: HEENT, Normal: Heart, Normal: Lungs, Normal: Extremities, Normal: Abdomen, Normal: Skin and Normal: Neurological Plan Diagnosis/Plan: Unchanged I have reviewed the history and physical and performed a pertinent physical examination on my patient. No changes have occurred unless specified. Time Spent With Patient Time: Total time managing care of this patient today ____ minutes.
--- NOTE | 2024-09-08 14:48 | W.PM.OPN ---
Operative Note Operative Note Date of Service: 09/08/24 Narrative: PreOperative Diagnosis: bladder cancer Post Operative Diagnosis: bladder cancer - Tumor size 5 cm, location left lower sidewall Procedure: TURBT and mitomycin-C with cytarabine Surgeon: Dr Salomón Page Anesthesia: general Indications for procedure: Gross hematuria with cystoscopy in office showing 5 cm lesion left lower sidewall and grade 3 trabeculation Procedure: After informed consent was verified the patient was brought to the operating room and placed in a supine position. Anesthesia was administered per protocol. The patient was placed in a modified dorsal lithotomy position and prepped and draped in a sterile fashion. Safety pause time-out was performed. Antibiotics were confirmed. A 26 [place] continuous flow resectoscope was inserted per urethra. The visual obturator was used in order to minimize potential for urethral damage. Grade 3 trabeculation. 5 cm lesion left lower sidewall. Using the bipolar resectoscope lesion was resected. Broad based. Did appear to have superficial invasion and care was taken around trabeculations in order to properly dissect lesion. At the completion of the procedure the bladder was irrigated. The cystoscope was removed. A [address] [place] catheter was inserted into the bladder. 10 cc was placed in the balloon. 40 mg of mitomycin-C with cytarabine was instilled into the bladder. The flow from the catheter was left clamped. The inflow to the catheter was attached to a 3 L normal saline bag. The patient tolerated the procedure well. They were extubated in the operating room and transferred in stable condition to the recovery area. Mitomycin-C will remain in the bladder for 1 hour. At the completion of 1 hour the clamp will be removed. The mitomycin-C will be allowed to egress to the urine collection bag. The 3 L bag of normal saline will be run at maximum rate through the bladder in order to dilute any residual mitomycin-C. The Chacon catheter will then be removed. Pathology: Bladder cancer large Drains: Chacon catheter was above
== END 2024-09-08 17:13 | disposition home or self-care (01) ==
PROVIDERS: PCP Internal Medicine; Visit Provider Urology
PROC: 0T9C8ZZ Drainage of Bladder Neck, Via Natural or Artificial Opening Endoscopic (ICD-10-PCS; CPT 52500; principal; 2024-09-08 12:30)
DX: C67.9 Malignant neoplasm of bladder, unspecified (principal); N32.89 Other specified disorders of bladder; I10 Essential (primary) hypertension; E78.5 Hyperlipidemia, unspecified; R79.89 Other specified abnormal findings of blood chemistry; M10.9 Gout, unspecified; Z95.0 Presence of cardiac pacemaker; F17.290 Nicotine dependence, other tobacco product, uncomplicated; Z79.899 Other long term (current) drug therapy
CPT/HCPCS: 52235; 51720; 88307; J0131; J1100; J1956; J2003; J2371; J2405; J2704; J3010; J9100; J9280

== ENCOUNTER → 2024-09-08 10:43 | Outpatient (BNV) | payer MEDICARE, OTHER, SELFPAY | PROVIDERS: PCP Internal Medicine; Visit Provider Urology | DX: C67.2 Malignant neoplasm of lateral wall of bladder (principal) | CPT/HCPCS: 52235 ==

== ENCOUNTER → 2024-09-09 11:23 | Outpatient (BNVA) | payer MEDICARE, OTHER, SELFPAY | PROVIDERS: PCP Internal Medicine; Visit Provider Urology | DX: C67.9 Malignant neoplasm of bladder, unspecified (principal); N32.89 Other specified disorders of bladder; N40.0 Benign prostatic hyperplasia without lower urinary tract symptoms; R31.9 Hematuria, unspecified | CPT/HCPCS: 51702 ==

== ENCOUNTER 2024-09-12 12:32 | Outpatient (REF) | payer MEDICARE, OTHER, SELFPAY ==
[2024-09-12 16:10] LABS: MANUAL DIFF FLAG NO
[2024-09-12 16:16] LABS: Basophils Percent Auto 0.3 % (0-2); Eosinophils Absolute Auto 0.3 X10*3/uL (0.0-0.4); Eosinophils Percent Auto 3.5 % (0-4); Hematocrit 35.9 % (42.0-52.0); Hemoglobin 11.7 g/dl (14.0-18.0); Imm Gran Abs Auto 0.11 X10*3/uL (0.00-0.03); Imm Gran Pct Auto 1.2 % (0.0-0.4); Lymphocytes Absolute Auto 1.8 X10*3/uL (1.2-4.9); Lymphocytes Percent Auto 19.5 % (20-40); Mean Corpuscular HGB Conc 32.6 g/dl (31.0-36.0); Mean Corpuscular Hemoglobin 32.8 pg (27.0-33.0); Mean Corpuscular Volume 100.6 fL (80.0-98.0); Mean Platelet Volume 11.4 fL (9.4-12.4); Monocytes Absolute Auto 0.5 X10*3/uL (0.1-1.2); Neutrophils Absolute Auto 6.2 x10*3/uL (2.0-8.3); Neutrophils Percent Auto 69.5 % (45-73); Platelet Count 225 X10*3/uL (160-400); Red Blood Count 3.57 X10*6/uL (4.60-5.80); Red Cell Distribution Width 13.6 % (11.0-16.0)
[2024-09-12 16:31] LABS: Alanine Aminotransferase 39 U/L (0-40); Albumin Level 3.5 g/dL (3.5-5.0); Alkaline Phosphatase 78 U/L (39-117); Anion Gap 10 (12-20); Aspartate Amino Transferase 37 U/L (5-37); Bilirubin Total 0.8 mg/dL (0.0-1.0); Blood Urea Nitrogen 23 mg/dL (9-16); Carbon Dioxide 24 mmol/L (22-29); Chloride 109 mmol/L (96-108); Estimated Glomerular Filt Rate 56; Glucose Random 102 mg/dL (60-115); Potassium 3.8 mmol/L (3.3-5.1); Sodium 139 mmol/L (135-145); Total Protein 6.6 g/dL (6.5-8.0)
== END 2024-09-12 12:33 | disposition home or self-care (01) ==
LOC: HO.HMGCLDS 12:32
PROVIDERS: PCP Internal Medicine; Visit Provider Internal Medicine
DX: C67.9 Malignant neoplasm of bladder, unspecified (principal)
CPT/HCPCS: 36415; 80053; 85025; 99212

== ENCOUNTER 2024-09-12 12:32 | Outpatient (AMB) | payer MEDICARE, OTHER, SELFPAY ==
[2024-09-12 12:40] VITALS: BP 126/62; PULSE 75; O2SAT 97; BMI 31.5
--- NOTE | 2024-09-12 12:40 | MHC.PC.OV ---
Vital Signs 09/12/24 12:40 09/12/24 14:53 Height 6 ft 2 in Weight 245 lb BMI 31.5 BP 126/62 90/60 Blood Pressure Location Lt brachial Rt brachial Position Sitting Standing Pulse 75 65 Pulse Source Pulse Oximeter Pulse Oximetry (%) 97 Oxygen Delivery Method Room Air Intake Visit Reasons: Hospital follow up Intake Note: Pt is here today for Hospital follow up visit. Allergies nut - unspecified [NUTS] Allergy (Severe, Verified 09/12/24 12:44) ANAPHYLAXIS Medication List - Last Reconciled 09/12/24 by Eden Self MD allopurinol 200 mg (2 x 100 mg) PO DAILY diltiazem HCl CD 180 mg PO DAILY simvastatin 5 mg PO BEDTIME tamsulosin 0.4 mg PO BEDTIME Tobacco use date assessed: 09/12/24 Last assessed Fall Risk: 09/12/24 Dental Screening Dental Screen Date: 05/06/24 HPI Hospital follow up HPI Details Pt presents follow-up after bladder surgery ( TURBT with mitomycin and cytarabine) for bladder CA. Patient reports feeling weak and lightheaded when standing up. He denies any syncope episodes. He reports bloody discharge from the catheter started with the blood clots after the surgery not turning dark red. Patient denies abdominal pain nausea vomiting fever chills chest pains or palpitations. He started taking diltiazem 180 mg yesterday after his dose was increased from 120 mg because of episode of a brief atrial tachycardia noted. Patient has stopped taking lisinopril a few days ago. [facility] Medical History (Updated 09/12/24 @ 14:54 by Eden Self MD) Elevated LFTs Essential hypertension Normally functioning cardiac pacemaker present History of GI bleed Gout HTN (hypertension) Hyperlipidemia Surgical History History of surgical removal of pilonidal cyst History of esophagogastroduodenoscopy (EGD) History of permanent cardiac pacemaker placement (~01/2016) Family History Father No problems noted. Mother No problems noted. Social History Housing: House Are you a primary rn progressive care to a significant other at home: No Do you presently have visiting nurse or other home services: No Alcohol intake: current Alcohol intake frequency: 0-2 drinks per day Patient Tobacco Use Status: Current everyday Tobacco user Tobacco use type: Cigar e-Cigarette/Vaping Use: Never Used service: No Current occupational status: retired Current occupational exposures/hazards: No Cognitive needs: No Hearing needs: No Vision needs: Yes Questionnaire PHQ-9 Over the last 2 weeks, how often have you been bothered by any of the following problems? 7. Trouble concentrating on things, such as reading the newspaper or watching television: several days 8. Moving or speaking so slowly that other people could have noticed. Or the opposite - being so fidgety or restless that you have been moving around a lot more than usual: several days 9. Thoughts that you would be better off or of hurting yourself in some way: not at all Source: Developed by Drs. Pancho Diop, Mindy Walton, Trent Soria and colleagues, with an educational carrie from [employer]. Thrive Questionnaire Date Thrive assessed: 05/06/24 I am a: Parent/Caregiver What is your living situation today?: I have a place to live, but I am worried about losing it in the future Within the past 12 months, did the food you bought not last and you didn't have the money to get more?: Never true Within the past 12 months, did you worry whether your food would run out before you got money to buy more?: Never true Do you have trouble paying for medicines?: No Do you have trouble getting transportation to medical appointments?: I choose not to answer this question Do you have trouble paying your heating and electricity bill?: No Do you have trouble taking care of your child, family member or friend?: I choose not to answer this question Do you have trouble with day-to-day activities such as bathing, preparing meals, shopping, managing finances, etc.?: No Are you currently unemployed and looking for a job?: No Are you interested in more education?: No Please select the resources that you would like help with: None Currently or been in a relationship where the following occur: No concerns reported THRIVE Score: 1 HARDIK-7 AMB Questionnaire HARDIK-7 Date HARDIK - 7 assessed: 05/06/24 Source: Developed by Drs. Pancho Diop, Mindy Walton, Trent Soria and colleagues, with an educational carrie from [employer]. Review of Systems Const All systems reviewed & are unremarkable except as noted in HPI and below ENT Reports no additional complaints Card Reports no additional complaints Resp Reports no additional complaints GI Reports no additional complaints Reports no additional complaints Physical exam (Primary Care) Vital Signs: Last Vital Signs Pulse 75 09/12/24 12:40 BP 126/62 09/12/24 12:40 Pulse Ox 97 09/12/24 12:40 Oxygen Delivery Method Room Air 09/12/24 12:40 BMI result Body Mass Index 31.5 Tobacco/Smoking Status: Tobacco use Status Tobacco use date assessed 09/12/24 09/12/24 12:47 Patient Tobacco Use Status Current everyday Tobacco 09/12/24 12:47 Tobacco use type Cigar 09/12/24 12:47 e-Cigarette/Vaping Use Never Used 09/12/24 12:47 Thrive Assessment: Date of Thrive Assessment Date Thrive assessed 05/06/24 09/12/24 12:47 Currently or been in a relationship where the following occur: No concerns reported Const General: no acute distress HENMT Head: Yes normal to inspection Face and sinus: Yes normal facial exam Resp Effort & Inspection: normal respiratory effort Auscultation: clear to auscultation bilaterally Cardio Rhythm: regular rhythm Heart sounds: S1 normal heart sound present and S2 normal heart sound present GI Inspection: Yes normal to inspection Palpation (GI): Soft to palpation Percussion: Yes normal to percussion Auscultation: normal bowel sounds Coding Level of Care Code Est Pt Level 4 (57686) Complex EM visit Add On G2211 Diagnoses Bladder cancer C67.9 Heart block I45.9 Orthostatic hypotension I95.1 Assessment & Plan Assessment & Plan (1) Bladder cancer: Comment: s/p TURBT with mitomycin and cytarabine 08/08/2024 f/u with Dr. Page Code(s): C67.9 - Malignant neoplasm of bladder, unspecified Category: Medical Plan: Follow-up with urology (2) Heart block: Comment: pacemaker 2015 Code(s): I45.9 - Conduction disorder, unspecified Category: Medical Plan: Follow-up with the Cardiology for pacemaker interrogation (3) Orthostatic hypotension: Code(s): I95.1 - Orthostatic hypotension Category: Medical Plan: Patient was advised to increase fluid intake and take 120 mg of diltiazem for the next week. He was advised not to restart lisinopril. He will return for blood pressure check and EKG in 1 week, check CBC and comprehensive panel today Orders: Orders Complete Blood Count Auto Diff Today C67.9 - Malignant neoplasm of bladder, unspecified Comprehensive Met. Panel Today C67.9 - Malignant neoplasm of bladder, unspecified
[2024-09-12 14:53] VITALS: BP 90/60; PULSE 65
== END 2024-09-12 14:56 | disposition home or self-care (01) ==
PROVIDERS: PCP Internal Medicine; Visit Provider Internal Medicine
DX: I45.9 Conduction disorder, unspecified (principal); I95.1 Orthostatic hypotension; C67.9 Malignant neoplasm of bladder, unspecified

== ENCOUNTER 2024-09-22 10:09 | Outpatient (REF) | payer MEDICARE, OTHER, SELFPAY | END 2024-09-22 10:10 | disposition home or self-care (01) | LOC: HO.LAB 10:09 | PROVIDERS: PCP Internal Medicine; Visit Provider Internal Medicine | DX: Z13.89 Encounter for screening for other disorder (principal) | CPT/HCPCS: 87086 ==

== ENCOUNTER 2024-09-22 10:30 | Outpatient (AMB) | payer MEDICARE, OTHER, SELFPAY ==
--- NOTE | 2024-09-22 10:45 | A.OFFPC_ITS ---
Vital Signs 09/22/24 10:46 Height 6 ft 2 in Weight 245 lb BMI 31.5 BP 106/58 L Blood Pressure Location Rt brachial Position Sitting Pulse 85 Pulse Source Pulse Oximeter Pulse Oximetry (%) 97 Oxygen Delivery Method Room Air Intake Visit Reasons: EKG/bp per Intake Note: Pt is here today for a follow up visit on BP. Pt states that he had a nose bleed this morning and he passed out in the shower did not hit his head. Allergies nut - unspecified [NUTS] Allergy (Severe, Verified 09/12/24 12:44) ANAPHYLAXIS Medication List - Last Reconciled 09/22/24 by Eden Self MD allopurinol 200 mg (2 x 100 mg) PO DAILY diltiazem HCl CD 180 mg PO DAILY diltiazem HCl CD 120 mg PO DAILY simvastatin 5 mg PO BEDTIME tamsulosin 0.4 mg PO BEDTIME Tobacco use date assessed: 09/12/24 Dental Screening Dental Screen Date: 05/06/24 HPI EKG/bp per HPI Details Patient presents for the follow-up of hypotension. He has been tolerating diltiazem 120 mg and denies lightheadedness or palpitations. Patient reports increased urinary frequency, decreased urinary output for 2 days. He denies dysuria nausea vomiting fever chills abdominal or back pain. Bladder catheter was removed a week ago and patient has been voiding without difficulties until 2 days ago. He left a message at his urology office this morning. [facility] Medical History Elevated LFTs Essential hypertension Normally functioning cardiac pacemaker present History of GI bleed Gout HTN (hypertension) Hyperlipidemia Surgical History History of surgical removal of pilonidal cyst History of esophagogastroduodenoscopy (EGD) History of permanent cardiac pacemaker placement (~01/2016) Family History Father No problems noted. Mother No problems noted. Social History Housing: House Are you a primary urgent care technician to a significant other at home: No Do you presently have visiting nurse or other home services: No Alcohol intake: current Alcohol intake frequency: 0-2 drinks per day Patient Tobacco Use Status: Current everyday Tobacco user Tobacco use type: Cigar e-Cigarette/Vaping Use: Never Used service: No Current occupational status: retired Current occupational exposures/hazards: No Cognitive needs: No Hearing needs: No Vision needs: Yes Questionnaire Thrive Questionnaire Date Thrive assessed: 05/06/24 I am a: Parent/Caregiver What is your living situation today?: I have a place to live, but I am worried about losing it in the future Within the past 12 months, did the food you bought not last and you didn't have the money to get more?: Never true Within the past 12 months, did you worry whether your food would run out before you got money to buy more?: Never true Do you have trouble paying for medicines?: No Do you have trouble getting transportation to medical appointments?: I choose not to answer this question Do you have trouble paying your heating and electricity bill?: No Do you have trouble taking care of your child, family member or friend?: I choose not to answer this question Do you have trouble with day-to-day activities such as bathing, preparing meals, shopping, managing finances, etc.?: No Are you currently unemployed and looking for a job?: No Are you interested in more education?: No Please select the resources that you would like help with: None Currently or been in a relationship where the following occur: No concerns reported THRIVE Score: 1 HARDIK-7 AMB Questionnaire HARDIK-7 Date HARDIK - 7 assessed: 05/06/24 Source: Developed by Drs. Pancho Diop, Mindy Walton, Trent Soria and colleagues, with an educational carrie from [employer]. Review of Systems Const All systems reviewed & are unremarkable except as noted in HPI and below Eyes Reports no additional complaints Card Reports no additional complaints Resp Reports no additional complaints GI Reports no additional complaints Reports no additional complaints Physical exam (Primary Care) Vital Signs: Last Vital Signs Pulse 85 09/22/24 10:46 BP 106/58 L 09/22/24 10:46 Pulse Ox 97 09/22/24 10:46 Oxygen Delivery Method Room Air 09/22/24 10:46 BMI result Body Mass Index 31.5 Tobacco/Smoking Status: Tobacco use Status Tobacco use date assessed 09/12/24 09/22/24 10:53 Patient Tobacco Use Status Current everyday Tobacco 09/22/24 10:53 Tobacco use type Cigar 09/22/24 10:53 e-Cigarette/Vaping Use Never Used 09/22/24 10:53 Thrive Assessment: Date of Thrive Assessment Date Thrive assessed 05/06/24 09/22/24 10:53 Currently or been in a relationship where the following occur: No concerns reported Const General: no acute distress HENMT Face and sinus: Yes normal facial exam Resp Effort & Inspection: normal respiratory effort Auscultation: clear to auscultation bilaterally Cardio Rhythm: regular rhythm Heart sounds: S1 normal heart sound present and S2 normal heart sound present GI Inspection: Yes normal to inspection and Yes distended Palpation (GI): Firmness to palpation present (GI) Auscultation: normal bowel sounds Coding Level of Care Code Est Pt Level 4 (41593) Diagnoses Bladder cancer C67.9 Urinary retention R33.9 Essential hypertension I10 Assessment & Plan Assessment & Plan (1) Bladder cancer: Comment: s/p TURBT with mitomycin and cytarabine 08/08/2024 f/u with Dr. Page Code(s): C67.9 - Malignant neoplasm of bladder, unspecified Category: Medical Plan: f/u with urology (2) Urinary retention: Code(s): R33.9 - Retention of urine, unspecified Category: Medical Plan: Obtain bladder scan and patient will call Urology office for follow-up, check UA (3) Essential hypertension: Code(s): I10 - Essential (primary) hypertension Category: Medical Plan: Continued 120 mg of diltiazem Orders: Orders AMB EKG-In Office Today I10 - Essential (primary) hypertension, I47.2 - Ventricular tachycardia, R00.1 - Bradycardia, unspecified UA w Microscopic Today C67.9 - Malignant neoplasm of bladder, unspecified, R33.9 - Retention of urine, unspecified US bladder Today C67.9 - Malignant neoplasm of bladder, unspecified, R33.9 - Retention of urine, unspecified
[2024-09-22 10:46] VITALS: BP 106/58; PULSE 85; O2SAT 97; BMI 31.5
== END 2024-09-22 11:51 | disposition home or self-care (01) ==
PROVIDERS: PCP Internal Medicine; Visit Provider Internal Medicine
DX: I47.20 Ventricular tachycardia, unspecified (principal); C67.9 Malignant neoplasm of bladder, unspecified; R33.9 Retention of urine, unspecified; I10 Essential (primary) hypertension; R00.1 Bradycardia, unspecified

== ENCOUNTER 2024-09-22 11:30 | Outpatient (REF) | payer MEDICARE, OTHER, SELFPAY ==
--- NOTE | ~2024-09-22 | US_ITS ---
EXAMINATION: US PELVIS LIMITED (BLADDER) CLINICAL INFORMATION: Malignant bladder neoplasm, urinary retention. Per mending carrier, Patient attempted to void, but was unable to do so. Patient status post TURBT resection of 5 cm left bladder wall lesion on 09/08/2024 and has been unable to void since 09/20/2024. COMPARISON: CT abdomen and pelvis of 07/03/2024, ultrasound renal bladder 05/06/2024. TECHNIQUE: Real-time imaging of the bladder. FINDINGS: BLADDER: The bladder is well distended. Diffuse trabeculation and thickening of the bladder wall. Bilateral ureteral jets are demonstrated. Prevoid bladder volume is 1053 mL. Prostate volume is 81 mL, enlarged. Postvoid images were not obtained as patient unable to void. US/US bladder IMPRESSION: 1. Diffuse trabeculation and thickening of the bladder wall. 2. Enlarged prostate. 3. Postvoid images were not obtained as patient unable to void. This study was presented today, September 22, 2024, for interpretation. Stat results provided at this time as requested by referring provider. Electronically signed by: Debora Elliott MD 09/22/2024 12:17 PM VANDANA
== END 2024-09-22 11:31 | disposition home or self-care (01) ==
LOC: HO.HMGCX 11:30
PROVIDERS: PCP Internal Medicine; Visit Provider Internal Medicine
DX: I10 Essential (primary) hypertension (principal); C67.9 Malignant neoplasm of bladder, unspecified; R33.9 Retention of urine, unspecified; R00.1 Bradycardia, unspecified; I47.20 Ventricular tachycardia, unspecified; Z79.899 Other long term (current) drug therapy
CPT/HCPCS: 51702; 51798; 76857; 81003; 87086; 93005; 99212

== ENCOUNTER 2024-09-22 13:48 | Outpatient (AMB) | payer MEDICARE, OTHER, SELFPAY ==
--- NOTE | 2024-09-22 14:25 | AM.OFFVISNUR ---
Intake Visit Reasons: retention Allergies nut - unspecified [NUTS] Allergy (Severe, Verified 09/12/24 12:44) ANAPHYLAXIS Office Procedures Bladder/Catheter Procedure Details: Patient presents to office for PVR and catheter insertion after PCP office nurse called into office reporting that bladder US was done and showed over 1000mls in his bladder. Patient bladder scanned for over 999mls. 16fr rios catheter blue plug 10ml balloon inserted, patient tolerated insertion well. Drained 1350mls drained from bladder. Educated patient and patient on use of blue plug as well as overnight large urine bag. Patient to schedule 4 week VT with nursing at checkout. Patient to keep follow up as scheduled with Dr. Page. Patient understood all information and agreeable [id number] Temporary Bladder Catheter Procedure code (CPT) selection complete Post Void Residual Post Residual Void Details: bladder scanned for over 999mls Post Void Residual (PVR): 999 [id number] Void Residual by ultrasound Results AMB Urinalysis, Automated UA Leukoctes 125 [place]/uL Last Edit by Michele Hong LPN on 09/22/24 14:42 UA Nitrite Positive Last Edit by Michele Hong LPN on 09/22/24 14:42 UA Urobilinogen 0.2 mg/dL Last Edit by Michele Hong LPN on 09/22/24 14:42 UA Protein 15 mg/dL Last Edit by Michele Hong LPN on 09/22/24 14:42 UA pH 6.0 Last Edit by Michele Hong LPN on 09/22/24 14:42 UA Blood 200 Siva/uL Last Edit by Michele Hong LPN on 09/22/24 14:42 UA Specific [place] 1.020 Last Edit by Michele Hong LPN on 09/22/24 14:42 UA Ketone Negative Last Edit by Michele Hong LPN on 09/22/24 14:42 UA Bilirubin 0 mg/dL Last Edit by Michele Hong LPN on 09/22/24 14:42 UA Glucose 0 mg/dL Last Edit by Michele Hong LPN on 09/22/24 14:42 Assessment & Plan Assessment & Plan Orders: Orders AMB Bladder/Catheter Procedure Today C67.9 - Malignant neoplasm of bladder, unspecified, N20.0 - Calculus of kidney, N40.0 - Benign prostatic hyperplasia without lower urinary tract symptoms, R33.9 - Retention of urine, unspecified AMB Post Void Residual by ultrasound Today C67.9 - Malignant neoplasm of bladder, unspecified, N32.89 - Other specified disorders of bladder, N40.0 - Benign prostatic hyperplasia without lower urinary tract symptoms, R33.9 - Retention of urine, unspecified Urine Culture Today C67.9 - Malignant neoplasm of bladder, unspecified, R33.9 - Retention of urine, unspecified AMB Urinalysis Automated Today C67.9 - Malignant neoplasm of bladder, unspecified, R33.9 - Retention of urine, unspecified Medications: New ciprofloxacin HCl (Cipro) 500 mg PO BID 14 tabs 0RF 7 days
== END 2024-09-22 14:53 | disposition home or self-care (01) ==
PROVIDERS: PCP Internal Medicine; Visit Provider Urology
DX: R33.9 Retention of urine, unspecified (principal); C67.9 Malignant neoplasm of bladder, unspecified

== ENCOUNTER 2024-09-30 10:35 | Outpatient (AMB) | payer MEDICARE, OTHER, SELFPAY ==
--- NOTE | 2024-09-30 11:21 | MHC.OFFVIS ---
Intake Visit Reasons: TURBT- follow up Intake Note: Patient is present for TURBT F/U Urology Medication:TAMSULOSIN,ALLOPURINOL Antibiotic Allergy:NONE Blood Thinner:NONE Supervisor Extrusion Required: No Allergies nut - unspecified [NUTS] Allergy (Severe, Verified 09/30/24 11:22) ANAPHYLAXIS HPI Comments Details: Ricardo is a pleasant male. He is a patient of Dr. Self. He seen for the following urologic conditions - bladder mass - bladder cancer on cystoscopy Follow-up after resection Urinary retention Will need re-resection of bladder cancer area Given age Trimodal therapy be preferred treatment Bladder cancer - high grade invasive - [id number] 09/14 Cystoscopy left sidewall bladder cancer 3 cm Initial evaluation for presentation with gross hematuria Prostate volume 50 cc 60 year pack per day smoking history Imaging - CT Urogram 07/15 Polypoid mass slightly hyperdense on precontrast imaging adherent to the left bladder wall measures 3.0 x 3.3 x 2.7 cm Surgical specimen Bladder, transurethral resection: High-grade papillary urothelial carcinoma, invasive into muscularis propria. Histologic type: Papillary urothelial carcinoma Histologic grade: High grade Muscularis propria: Present Extent of invasion: Muscularis propria Lymphovascular invasion: Not identified [facility] Medical History Elevated LFTs Essential hypertension Normally functioning cardiac pacemaker present History of GI bleed Gout HTN (hypertension) Hyperlipidemia Surgical History History of surgical removal of pilonidal cyst History of esophagogastroduodenoscopy (EGD) History of permanent cardiac pacemaker placement (~01/2016) Family History Father No problems noted. Mother No problems noted. Social History Housing: House Are you a primary wound care physician to a significant other at home: No Do you presently have visiting nurse or other home services: No Alcohol intake: current Alcohol intake frequency: 0-2 drinks per day Patient Tobacco Use Status: Current everyday Tobacco user Tobacco use type: Cigar e-Cigarette/Vaping Use: Never Used service: No Current occupational status: retired Current occupational exposures/hazards: No Cognitive needs: No Hearing needs: No Vision needs: Yes Review of Systems Const Denies chills and Denies fever(s) Card Reports no additional complaints and Denies syncope Resp Denies cough GI Denies abdominal pain and Denies heartburn Reports as per HPI and Denies change in libido Neuro Denies syncope Psych Denies change in libido Endo Denies change in libido Physical Exam Const General: cooperative, healthy appearing, comfortable and no acute distress Orientation/consciousness: patient oriented x3 HEENT Face and sinus: Yes normal facial exam Mouth: moist mucous membranes Neck Neck: Yes normal visual inspection, Yes full ROM and Yes trachea midline Chest Chest palpation & inspection: normal inspection of the chest Resp Effort & Inspection: normal respiratory effort, able to speak in complete sentences and no respiratory distress GI Inspection: Yes normal to inspection Back/Spine/Pelvis Cervical Spine: normal cervical lordosis Thoracic/Lumbar Spine: thoracic and lumbar spine normal to inspection Skin General skin exam: no rashes or lesions noted Neuro General: patient oriented x3, gait normal, tone normal and moves all extremities Extrem General: Yes normal to inspection and Yes capillary refill normal Results AMB Urinalysis, Automated UA Leukoctes 15 Elizabeth/uL Last Edit by TIMO Hitchcock on 09/30/24 11:37 UA Nitrite Negative Last Edit by TIMO Hitchcock on 09/30/24 11:37 UA Urobilinogen 0.2 mg/dL Last Edit by TIMO Hitchcock on 09/30/24 11:37 UA Protein 30 mg/dL Last Edit by TIMO Hitchcock on 09/30/24 11:37 UA pH 5.5 Last Edit by TIMO Hitchcock on 09/30/24 11:37 UA Blood 200 Siva/uL Last Edit by TIMO Hitchcock on 09/30/24 11:37 UA Specific [place] 1.025 Last Edit by TIMO Hitchcock on 09/30/24 11:37 UA Ketone Negative Last Edit by TIMO Hitchcock on 09/30/24 11:37 UA Bilirubin 0 mg/dL Last Edit by TIMO Hitchcock on 09/30/24 11:37 UA Glucose 0 mg/dL Last Edit by TIMO Hitchcock on 09/30/24 11:37 Results Reviewed Results Reviewed: Laboratory Last Values Urine pH (Auto) 5.5 09/30/24 11:36 Specific [place] (Auto) 1.025 09/30/24 11:36 Urine Protein (Auto) 30 mg/dL 09/30/24 11:36 Glucose (UA)(Auto) 0 mg/dL 09/30/24 11:36 Urine Ketones (Auto) Negative 09/30/24 11:36 Urine Blood (Auto) 200 Siva/uL 09/30/24 11:36 Urine Nitrite (Auto) Negative 09/30/24 11:36 Urine Bilirubin (Auto) 0 mg/dL 09/30/24 11:36 Urine Urobilinogen (Auto) 0.2 mg/dL 09/30/24 11:36 Leukocyte Esterase (Auto) 15 Elizabeth/uL 09/30/24 11:36 Assessment & Plan Assessment & Plan (1) Bladder cancer: Comment: - high-grade invasive s/p TURBT with mitomycin and cytarabine 09/08/2024 f/u with Dr. Page Code(s): C67.9 - Malignant neoplasm of bladder, unspecified Category: Medical Plan Risks, benefits and alternatives to therapy were discussed. These include but are not limited to infection, bleeding, damage to local organs and tissues, need for further interventions. Anesthetic risks regarding cardiac arrhythmia, blood clots, and potential mortality were discussed. The patient understands the typical recovery time and the outpatient nature of the procedure. After consideration of these risks the patient gives full informed consent and they wish to move ahead with the procedure. TURBT repeat Orders: Orders AMB Urinalysis Automated 09/30/24 Z13.9 - Encounter for screening, unspecified Patient Instructions: Imaging studies, laboratory and physical exam results were discussed and reviewed in detail. No major barriers to patient understanding were identified. An opportunity to ask questions regarding the treatment plan was provided. All questions were answered. The patient expressed understanding and agreement with the above treatment plan. The patient is aware they should contact our office by phone for worsening of their current condition or the appearance of new urologic symptoms. Compliance is encouraged with any medications and followup testing that is ordered. It is a privilege to participate in the urologic care of your patient. If you have any questions or concerns regarding treatment for the above conditions, or other urologic issues, please do not hesitate to contact me. The office telephone contact is [phone]. This note is constructed using voice recognition software. While every effort has been made to ensure accuracy cut order hand errors may have been included. Yours sincerely, Dr Salomón Page MD, [facility] - Urology Providers of Expert, Compassionate Care for the Genitourinary System Coding Level of Care Code Est Pt Level 4 (51727) Diagnoses Bladder cancer C67.9
== END 2024-09-30 12:37 | disposition home or self-care (01) ==
PROVIDERS: PCP Internal Medicine; Visit Provider Urology
DX: Z13.9 Encounter for screening, unspecified (principal)

== ENCOUNTER → 2024-09-30 10:35 | Outpatient (BNVA) | payer MEDICARE, OTHER, SELFPAY | PROVIDERS: PCP Internal Medicine; Visit Provider Urology | DX: C67.9 Malignant neoplasm of bladder, unspecified (principal) | CPT/HCPCS: 81003; 99212 ==

== ENCOUNTER → 2024-10-08 10:28 | Outpatient (BNVA) | payer MEDICARE, OTHER, SELFPAY | PROVIDERS: PCP Internal Medicine; Visit Provider Urology | DX: N40.1 Benign prostatic hyperplasia with lower urinary tract symptoms (principal); R33.9 Retention of urine, unspecified; C67.9 Malignant neoplasm of bladder, unspecified | CPT/HCPCS: 51702 ==

== ENCOUNTER → 2024-10-27 10:39 | Outpatient (BNVA) | payer MEDICARE, OTHER, SELFPAY | PROVIDERS: PCP Internal Medicine; Visit Provider Urology | DX: N40.1 Benign prostatic hyperplasia with lower urinary tract symptoms (principal); R33.9 Retention of urine, unspecified; C67.9 Malignant neoplasm of bladder, unspecified | CPT/HCPCS: 51702 ==

== ENCOUNTER 2024-10-31 12:30 | Outpatient (AMB) | payer MEDICARE, OTHER, SELFPAY ==
[2024-10-31 12:58] VITALS: BP 124/70; PULSE 76; BMI 30.8
--- NOTE | 2024-10-31 12:58 | MHC.OFFVIS ---
Vital Signs 10/31/24 12:58 Height 6 ft 2 in Weight 240 lb 4.862 oz BMI 30.8 BP 124/70 Blood Pressure Location Lt brachial Position Sitting Pulse 76 Pulse Source Monitor Intake Visit Reasons: f/u per DC/office device ck/ preop Allergies nut - unspecified [NUTS] Allergy (Severe, Verified 09/30/24 11:22) ANAPHYLAXIS HPI HPI f/u per DC/office device ck/ preop: Details: Tray is an 83-year-old male with past medical history of hypertension, hyperlipidemia, bradycardia status post pacemaker placement, mild aortic stenosis, NSVT, who is undergoing treatment for bladder cancer. He now presents for follow-up. Today he reports that he has been having issues with shortness of breath with activity. He believes this is a newer symptom for him. He has no PND, orthopnea or edema. He does have some fatigue and mild weakness since his bladder procedure in August. He said he had issues with hematuria and low blood pressure following that procedure. He did have a loss of consciousness in the shower on 1 occasion in August. He was noted to have low blood pressure and his PCP stopped his lisinopril and reduced his diltiazem dose. His blood pressure has been better overall. He has not had any further lightheadedness. No recurrent presyncope, syncope, falls. No heart palpitations. He is taking his meds as directed. He has been doing only light physical activity. He still has a Rios catheter in place. He will need a repeat cystoscopy procedure in a few weeks. [facility], [facility] Medical History Elevated LFTs Essential hypertension Normally functioning cardiac pacemaker present History of GI bleed Gout HTN (hypertension) Hyperlipidemia Surgical History History of surgical removal of pilonidal cyst History of esophagogastroduodenoscopy (EGD) History of permanent cardiac pacemaker placement (~01/2016) Family History Father No problems noted. Mother No problems noted. Social History Housing: House Are you a primary daycare teacher to a significant other at home: No Do you presently have visiting nurse or other home services: No Alcohol intake: current Alcohol intake frequency: 0-2 drinks per day Patient Tobacco Use Status: Current everyday Tobacco user Tobacco use type: Cigar e-Cigarette/Vaping Use: Never Used service: No Current occupational status: retired Current occupational exposures/hazards: No Cognitive needs: No Hearing needs: No Vision needs: Yes Review of Systems Const All systems reviewed & are unremarkable except as noted in HPI and below Denies weakness ENT Denies dizziness Card Denies chest pain, Denies chest pain with activity, Denies syncope, Denies rapid heart rate, Denies pedal edema, Denies edema, Denies leg edema, Denies lightheadedness, Denies palpitations, Denies dyspnea, Reports dyspnea on exertion and Denies orthopnea Resp Denies cough, Denies dyspnea and Reports dyspnea on exertion GI Denies hematochezia and Denies change in stool character Details: rios cath in place Musc Denies abnormal gait, Denies muscle cramps, Denies muscle weakness, Denies numbness, Denies radiating pain into limb and Denies tingling Neuro Denies abnormal gait, Denies dizziness, Denies syncope, Denies numbness, Denies tingling and Denies weakness Endo Denies palpitations Physical Exam Vital Signs: Last Vital Signs Pulse 76 10/31/24 12:58 BP 124/70 10/31/24 12:58 BMI result Body Mass Index 30.8 Const General: cooperative, healthy appearing, comfortable and no acute distress Orientation/consciousness: patient oriented x3 Neck Neck: Yes normal visual inspection and Yes no JVD Resp Effort & Inspection: normal respiratory effort Auscultation: clear to auscultation bilaterally, no rales, no rhonchi and no wheezes Cardio Jugular venous distension: no JVD Rate: regular rate Rhythm: regular rhythm Heart sounds: S1 normal heart sound present, S2 normal heart sound present, no murmurs and no rubs Neuro General: patient oriented x3 Extrem General: Yes normal to inspection, No no pedal edema and No calf tenderness Psych Appearance: grossly normal Mental Status: mental status grossly normal Speech and movement: Normal speech and movement present Office Procedures Cardiac Device Check Cardiac Device Check Details: [employer] dual chamber PPm interrogation today shows battery 2-2.3 years, DDDR mode, low rate 60, A threshold 0.5V at 0.5ms, V threshold not performed, AP 20%, INSURANCE BILLING CLERK 44%, one brief high V rate, brief mode switches - atrial tach. [id number] Cardiac Device Check, pacemaker dual lead Procedure code (CPT) selection complete EKG Details: Today, read by me SR, 1st degree avb, RBBB, rate 76, Qtc 468ms [id number], Complete Assessment & Plan Assessment & Plan (1) SOB (shortness of breath): Code(s): R06.02 - Shortness of breath Category: Medical Plan: Reports of shortness of breath with activity which he states is newer for him. No PND, orthopnea or edema. He does not appear fluid overloaded on exam. He denies any chest discomfort. Last echo done 04/08/2024 showing EF 56%, mild aortic stenosis. He had a nuclear stress test 04/15/2024 showing a reversible inferior and inferior lateral defect, possible ischemia, diaphragm attenuation possible. He has noticed his symptoms since his urological procedure in August. He is describing some weakness and fatigue as well. He was having issues with hematuria but states that resolved. At this time will update his labs including BMP, CBC and BNP. Plan to call him with results. (2) Nonrheumatic aortic (valve) stenosis: Comment: mild Echo 07/2024 Code(s): I35.0 - Nonrheumatic aortic (valve) stenosis Category: Medical Plan: History of aortic stenosis. Most recent echo showing mild , mean gradient 15 mmHg, aortic valve area 1.45 centimeter sq. Faint murmur noted on exam. Will continue to follow with periodic echoes. (3) Normally functioning cardiac pacemaker present: Code(s): Z95.0 - Presence of cardiac pacemaker Category: Medical Plan: [employer] dual-chamber pacemaker in place. Interrogation today shows it is functioning normally. Battery 2-2.3 years. Mode switches noted which look like atrial tachycardia, episodes brief. Remote monitoring in use. Next office interrogation due in 6 months (4) Heart block: Comment: pacemaker 2015 Code(s): I45.9 - Conduction disorder, unspecified Category: Medical Plan: As above (5) Essential hypertension: Code(s): I10 - Essential (primary) hypertension Category: Medical Plan: Well controlled. No med changes made. He is currently off his lisinopril. Diltiazem is currently at 120 mg daily. (6) Bladder cancer: Comment: - high-grade invasive s/p TURBT with mitomycin and cytarabine 09/08/2024 f/u with Dr. Page Code(s): C67.9 - Malignant neoplasm of bladder, unspecified Category: Medical Plan: Follows with Dr. Page (7) Pre-operative cardiovascular examination: Code(s): Z01.810 - Encounter for preprocedural cardiovascular examination Category: Medical Plan: Preop for urological procedure in the near future with Dr. Page. Cystoscopy approach. He can proceed with intermediate cardiac risk. Continue diltiazem. Call/consult Cardiology. If needed Plan Time spent on chart review, documentation, interviewing assessment Orders: Orders Complete Blood Count Auto Diff Today R06.02 - Shortness of breath Basic Metabolic Panel Today R06.02 - Shortness of breath B Type Natriuretic Peptide Today R06.02 - Shortness of breath Coding Level of Care Code Est Pt Level 4 (90318) Diagnoses SOB (shortness of breath) R06.02 Nonrheumatic aortic (valve) stenosis I35.0 Normally functioning cardiac pacemaker present Z95.0 Heart block I45.9 Essential hypertension I10 Bladder cancer C67.9 Pre-operative cardiovascular examination Z01.810 CPT Codes Cardiac Device Check - Cardiac Device 2: [id number] Cardiac Device Check, pacemaker dual lead ([id number]) EKG - CPT: 04365-[id number], Complete ([id number]) Time Spent (min) 30
== END 2024-10-31 13:41 | disposition home or self-care (01) ==
PROVIDERS: PCP Internal Medicine; Visit Provider Nurse Practitioner Family
DX: R06.02 Shortness of breath (principal); I35.0 Nonrheumatic aortic (valve) stenosis; Z95.0 Presence of cardiac pacemaker; I45.9 Conduction disorder, unspecified; I10 Essential (primary) hypertension; C67.9 Malignant neoplasm of bladder, unspecified; Z01.810 Encounter for preprocedural cardiovascular examination
CPT/HCPCS: 93010; 93280; 99214

== ENCOUNTER 2024-10-31 13:47 | Outpatient (REF) | payer MEDICARE, OTHER, SELFPAY ==
[2024-10-31 13:57] LABS: MANUAL DIFF FLAG NO
[2024-10-31 14:35] LABS: Basophils Percent Auto 0.4 % (0-2); Eosinophils Absolute Auto 0.5 X10*3/uL (0.0-0.4); Eosinophils Percent Auto 5.1 % (0-4); Hematocrit 41.2 % (42.0-52.0); Hemoglobin 13.2 g/dl (14.0-18.0); Imm Gran Abs Auto 0.08 X10*3/uL (0.00-0.03); Imm Gran Pct Auto 0.9 % (0.0-0.4); Lymphocytes Absolute Auto 2.3 X10*3/uL (1.2-4.9); Lymphocytes Percent Auto 24.7 % (20-40); Mean Corpuscular Hemoglobin 31.7 pg (27.0-33.0); Mean Platelet Volume 10.4 fL (9.4-12.4); Monocytes Absolute Auto 0.7 X10*3/uL (0.1-1.2); Monocytes Percent Auto 7.8 % (2-11); Neutrophils Absolute Auto 5.7 x10*3/uL (2.0-8.3); Neutrophils Percent Auto 61.1 % (45-73); Platelet Count 305 X10*3/uL (160-400); Red Blood Count 4.16 X10*6/uL (4.60-5.80); Red Cell Distribution Width 13.9 % (11.0-16.0); White Blood Count 9.4 X10*3/uL (4.8-10.8)
[2024-10-31 14:58] LABS: Anion Gap 10 (12-20); Blood Urea Nitrogen 26 mg/dL (9-16); Calcium 9.3 mg/dL (8.4-10.2); Carbon Dioxide 24 mmol/L (22-29); Chloride 114 mmol/L (96-108); Estimated Glomerular Filt Rate 39; Glucose Random 92 mg/dL (60-115); Potassium 4.4 mmol/L (3.3-5.1); Sodium 144 mmol/L (135-145)
[2024-10-31 15:03] LABS: B Type Natriuretic Peptide 78 pg/mL (<100)
== END 2024-10-31 13:48 | disposition home or self-care (01) ==
LOC: HO.LAB 13:47
PROVIDERS: PCP Internal Medicine; Visit Provider Nurse Practitioner Family
DX: Z01.810 Encounter for preprocedural cardiovascular examination (principal); R06.02 Shortness of breath; I35.0 Nonrheumatic aortic (valve) stenosis; I45.9 Conduction disorder, unspecified; I10 Essential (primary) hypertension; C67.9 Malignant neoplasm of bladder, unspecified; Z45.018 Encounter for adjustment and management of other part of cardiac pacemaker; Z79.899 Other long term (current) drug therapy
CPT/HCPCS: 36415; 80048; 83880; 85025; 93005; 93280; 99212

== ENCOUNTER 2024-11-10 05:54 | Day surgery (SDC) | payer MEDICARE, OTHER, SELFPAY ==
[2024-11-06 07:35] VITALS: BMI 30.8
--- NOTE | 2024-11-07 17:49 | P.CONAN_ITS ---
HPI - Anesthesia Eval Consult details Narrative: 83 yo male patient for TURBT PMFSH Active Problems Active Problems: All Active Problems (Updated 11/10/24 @ 07:15 by Katherine Neff MD) Urinary retention (Acute) Orthostatic hypotension (Acute) Bladder cancer (Acute) Nonrheumatic aortic (valve) stenosis (Acute) Pre-operative cardiovascular examination (Acute) Enlarged prostate (Acute) Bradycardia (Acute) Nephrolithiasis (Acute) Bladder mass (Acute) SOB (shortness of breath) (Acute) Annual physical exam (Acute) Hematuria (Acute) Sebaceous cyst (Acute) Callus of foot (Acute) RBBB (Acute) Heart block (Acute). Pacemaker in place. Last checked last week. Working well Bifascicular block (Acute) Syncope (Acute) NSVT (nonsustained ventricular tachycardia) (Acute) Hyperglycemia (Acute) Encounter for interrogation of cardiac pacemaker (Acute) Elevated LFTs (Acute) Hyperlipidemia (Acute) Essential hypertension (Acute) Normally functioning cardiac pacemaker present (Acute) History of GI bleed (Acute) Gout (Acute) Past Medical History Medical History Elevated LFTs Essential hypertension Normally functioning cardiac pacemaker present History of GI bleed Gout HTN (hypertension) Hyperlipidemia Family History Family History Father No problems noted. Mother No problems noted. Family history of problems with anesthesia: No Surgical History Surgical History H/O transurethral resection of bladder tumor (TURBT) History of surgical removal of pilonidal cyst History of esophagogastroduodenoscopy (EGD) History of permanent cardiac pacemaker placement (~01/2016) History of Problems with Anesthesia: No Social History Social History Housing: House Are you a primary director of career services to a significant other at home: No Do you presently have visiting nurse or other home services: No Alcohol intake: current Alcohol intake frequency: 0-2 drinks per day Patient Tobacco Use Status: Current everyday Tobacco user Tobacco use type: Cigar Years Smoked: 20 Smoked in Last 30 Days: No e-Cigarette/Vaping Use: Never Used Use of substances other than those prescribed or required for medical reasons: No Have you been hit, kicked, punched, or otherwise hurt by someone within the past year? If so, by whom?: No Are you DNR?: No Advance Directives: No Advance Directives Information Provided: Yes ( Grisel (per patient)) Advance Directives on File: No (NOT ON FILE) Recently lost weight without trying: No How much weight loss: Not applicable Eating poorly because of decreased appetite: No Nutrition screen score: 0 Nutrition Risks: No Nutritional Risk Poor oral hygiene: No service: No Current occupational status: retired Current occupational exposures/hazards: No Cognitive needs: No Hearing needs: No Vision needs: Yes Meds Allergies Allergy/AdvReac Type Severity Reaction Status Date / Time nut - unspecified [NUTS] Allergy Severe ANAPHYLAXIS Verified 11/10/24 06:02 Exam Height,Weight and Vital Signs: Height 6 ft 2 in Weight 108.862 kg Vital Signs Temp Pulse Resp BP Pulse Ox O2 Del Method 11/10/24 06:07 97.9 F 84 16 151/75 H 97 Room Air Airway Mallampati Class: III TM Dist: >3cm Neck ROM: Limited Loose/Missing/Broken Teeth: No (Denies broken, loose, missing teeth) Heart: RRR Lungs: CTAB Assessment and Plan Assessment Anesthesia Assessment: Anesthesia Plan Discussed and Chart Reviewed Final Anesthetic Review Family History of Problems with Anesthesia: No History of Problems with Anesthesia: No NPO: Yes ASA Class: III Final Preanesthetic Review: No Changes in Pt Med Stat, Meds/Allgs Chart Reviewed, Consent Obtained/Reviewed and Anes Risks/Benef Reviewed Patient Risk: Intermediate Procedure Risk: Low Assessment/Block/Sedation in SS: Assess/Block/Sedation-SS Anesthetic Plan Anesthetic Plan: GA Disposition: Standard PACU
[2024-11-10] VITALS (8 sets, daily range): BP systolic 92–154; BP diastolic 47–85; PULSE 68–84; RESP 14–16; TEMP 36.2–36.6; O2SAT 94–98; BMI 31.9
--- NOTE | 2024-11-10 07:32 | MHC.SHP ---
Pre-Procedural Eval Section A - 24 Hr Update-Section A only Date of Service: 11/10/24 The patient is an INPATIENT: No Changes since office visit: No Cold of Flu in the past 2 weeks, No New Medical Problems, No Changes in Medication and No Patient answered all questions The patient has been examined within 24 hours of the surgical procedure. The History & Physical has been completed within 30 days and I have reviewed it.: No Section B - Complete if H&P > 30 days Chief Complaint: Malignant neoplasm of bladder, unspecified Details of Present Illness: repeat TURBT for high grade bladder diagnosis Relevant Family History (Specify if Yes): No Relevant Social History: None Present Medications: see Short Stay Collaborative assessment Medical History: No relevant PMH History of Previous Operations: Relevant previous surgery/procedure and date(s) Allergies: Allergies Allergy/AdvReac Type Severity Reaction Status Date / Time nut - unspecified [NUTS] Allergy Severe ANAPHYLAXIS Verified 11/10/24 06:02 Review of Systems Sugical H&P ROS: Negative: Constitution, Cardiovascular, Respiratory, Neurological, Psychiatric, Hem-Onc, Allergic/Immunologic, Gastrointestinal, Genitourinary, Musculoskeletal, Integumentary, Endocrine and Eyes/Ears/Nose/Throat Exam Surgical H&P Exam: Normal: HEENT, Normal: Heart, Normal: Lungs, Normal: Extremities, Normal: Abdomen, Normal: Skin and Normal: Neurological Plan Diagnosis/Plan: Unchanged I have reviewed the history and physical and performed a pertinent physical examination on my patient. No changes have occurred unless specified. Time Spent With Patient Time: Total time managing care of this patient today ____ minutes.
--- NOTE | 2024-11-10 08:38 | P.OP_ITS ---
Operative Note Operative Note Date of Service: 11/10/24 Narrative: PreOperative Diagnosis: bladder cancer Post Operative Diagnosis: 1) left sidewall bladder cancer 2 cm 2) posterior bladder wall 3 cm area of mucosal change 3) inflamed left ureteric orifice Procedure: 1) repeat TURBT left sidewall small 2) surface resection with fulguration TURBT posterior wall 3) bladder biopsies with fulguration 4) left flexible ureteric stent placement Surgeon: Dr Salomón Page Anesthesia: general Indications for procedure: High-grade superficial bladder cancer, elevated creatinine. To confirm stage and grade Procedure: After informed consent was verified the patient was brought to the operating room and placed in a supine position. Anesthesia was administered per protocol. The patient was placed in a modified dorsal lithotomy position and prepped and draped in a sterile fashion. Safety pause time-out was performed. Antibiotics were confirmed. A 26 Tamazight continuous flow resectoscope was inserted per urethra. The visual obturator was used in order to minimize potential for urethral damage. The area of prior resection of the left sidewall proximally 2 cm from the ureteric orifice was seen. Resection was performed. Biopsy was performed of this area and fulguration performed. Posterior bladder wall was inflamed with mucosal changes. Narrow band imaging performed. Suspicious areas. Areas were fulgurated and resected using the resectoscope. The left ureteric orifice was inflamed. Creatinine has been elevated. It was very difficult to place a wire. Using a yellow open-ended we were able to stabilize the wire and advance. Decision made to place a stent. A 6 Tamazight variable length stent was then placed without difficulty. The patient tolerated the procedure well. They were extubated in the operating room and transferred in stable condition to the recovery area. If pathology confirmed will move to induction immunotherapy of bladder Pathology: Biopsies Drains: Double-J stent as
[2024-11-10] MEDS: Phenazopyridine HCL 100 MG TABLET PO (09:11)
== END 2024-11-10 09:48 | disposition home or self-care (01) ==
PROVIDERS: PCP Internal Medicine; Visit Provider Urology
PROC: 0TBB8ZZ Excision of Bladder, Via Natural or Artificial Opening Endoscopic (ICD-10-PCS; CPT 52234; principal; 2024-11-10 07:30)
DX: C67.2 Malignant neoplasm of lateral wall of bladder (principal); C67.4 Malignant neoplasm of posterior wall of bladder; N30.20 Other chronic cystitis without hematuria; R79.89 Other specified abnormal findings of blood chemistry; I10 Essential (primary) hypertension; E78.5 Hyperlipidemia, unspecified; I35.0 Nonrheumatic aortic (valve) stenosis; Z95.0 Presence of cardiac pacemaker; I45.9 Conduction disorder, unspecified; R06.02 Shortness of breath; M10.9 Gout, unspecified; Z79.899 Other long term (current) drug therapy; F17.290 Nicotine dependence, other tobacco product, uncomplicated
CPT/HCPCS: 52234; 52332; 88305; C1758; C1769; C2617; J0131; J1956; J2003; J2405; J2704; J3010

== ENCOUNTER → 2024-11-10 05:54 | Outpatient (BNV) | payer MEDICARE, OTHER, SELFPAY | PROVIDERS: PCP Internal Medicine; Visit Provider Urology | DX: C67.2 Malignant neoplasm of lateral wall of bladder (principal) | CPT/HCPCS: 52234; 52332 ==

== ENCOUNTER 2024-11-12 09:28 | Outpatient (REF) | payer MEDICARE, OTHER, SELFPAY ==
[2024-11-12 09:51] LABS: MANUAL DIFF FLAG NO
[2024-11-12 11:08] LABS: Basophils Percent Auto 0.4 % (0-2); Eosinophils Absolute Auto 0.5 X10*3/uL (0.0-0.4); Eosinophils Percent Auto 6.1 % (0-4); Hematocrit 37.7 % (42.0-52.0); Hemoglobin 12.2 g/dl (14.0-18.0); Imm Gran Abs Auto 0.05 X10*3/uL (0.00-0.03); Imm Gran Pct Auto 0.7 % (0.0-0.4); Lymphocytes Absolute Auto 1.8 X10*3/uL (1.2-4.9); Lymphocytes Percent Auto 23.2 % (20-40); Mean Corpuscular HGB Conc 32.4 g/dl (31.0-36.0); Mean Corpuscular Hemoglobin 30.9 pg (27.0-33.0); Mean Corpuscular Volume 95.4 fL (80.0-98.0); Mean Platelet Volume 10.7 fL (9.4-12.4); Monocytes Absolute Auto 0.5 X10*3/uL (0.1-1.2); Monocytes Percent Auto 6.9 % (2-11); Neutrophils Absolute Auto 4.8 x10*3/uL (2.0-8.3); Neutrophils Percent Auto 62.7 % (45-73); Platelet Count 218 X10*3/uL (160-400); Red Blood Count 3.95 X10*6/uL (4.60-5.80); Red Cell Distribution Width 13.8 % (11.0-16.0); White Blood Count 7.7 X10*3/uL (4.8-10.8)
[2024-11-12 11:15] LABS: Estimated Average Glucose 108 mg/dL; Hemoglobin A1C 111.6834 umol/L; Hemoglobin A1c % 5.4 % (<6.0); Total Hemoglobin (HGBA1C) 3175.4236 umol/L
[2024-11-12 11:46] LABS: Alanine Aminotransferase 31 U/L (0-40); Albumin Level 3.4 g/dL (3.5-5.0); Alkaline Phosphatase 88 U/L (39-117); Anion Gap 9 (12-20); Aspartate Amino Transferase 34 U/L (5-37); Bilirubin Total 0.8 mg/dL (0.0-1.0); Blood Urea Nitrogen 17 mg/dL (9-16); Calcium 9.2 mg/dL (8.4-10.2); Carbon Dioxide 24 mmol/L (22-29); Chloride 109 mmol/L (96-108); Cholesterol 109 mg/dL (<200); Estimated Glomerular Filt Rate 56; Glucose Fasting 108 mg/dL (60-99); HDL Cholesterol 30 mg/dL (>40); LDL Cholesterol Calculated 63 mg/dL (<100); Sodium 138 mmol/L (135-145); Total Protein 6.7 g/dL (6.5-8.0); Triglycerides 83 mg/dL (<150)
== END 2024-11-12 09:29 | disposition home or self-care (01) ==
LOC: HO.LAB 09:28
PROVIDERS: PCP Internal Medicine; Visit Provider Internal Medicine
DX: Z00.00 Encounter for general adult medical examination without abnormal findings (principal); E78.5 Hyperlipidemia, unspecified; I10 Essential (primary) hypertension; R73.9 Hyperglycemia, unspecified
CPT/HCPCS: 36415; 80053; 80061; 83036; 85025

== ENCOUNTER 2024-11-14 09:56 | Outpatient (REF) | payer MEDICARE, OTHER, SELFPAY ==
--- NOTE | ~2024-11-14 | XR_ITS ---
EXAMINATION: XR CHEST 2 VIEWS HISTORY: R06.09 - Other forms of dyspnea COMPARISON: Comparison is made with the prior examination dated 03/14/2017. FINDINGS: PA and lateral views of the chest are submitted. A left subclavian dual-chamber pacemaker is unchanged in position. The lungs are mildly hyperinflated, consistent with COPD. The lungs are clear. There is no pleural effusion, pneumothorax, or pulmonary vascular congestion. The heart is normal in size. There is degenerative disc disease of the spine. XR/XR chest 2V IMPRESSION: COPD. No acute cardiopulmonary abnormality. Electronically signed by: Pancho Stephenson MD 11/17/2024 08:12 AM [facility]
[2024-11-14 14:02] LABS: D Dimer High Sensitivity 175 NG/ML
[2024-11-14 14:32] LABS: Folate 4.9 ng/mL (> or = 4.0); Vitamin B12 307 pg/mL (200-900)
== END 2024-11-14 09:57 | disposition home or self-care (01) ==
LOC: HO.HMGCX 09:56
PROVIDERS: PCP Internal Medicine; Visit Provider Internal Medicine
DX: R06.09 Other forms of dyspnea (principal); E78.5 Hyperlipidemia, unspecified; I10 Essential (primary) hypertension; C67.9 Malignant neoplasm of bladder, unspecified; Z79.899 Other long term (current) drug therapy
CPT/HCPCS: 36415; 71046; 82607; 82746; 85379; 96127; 99212

== ENCOUNTER → 2024-11-14 10:46 | Outpatient (BNV) | payer MEDICARE, OTHER, SELFPAY | PROVIDERS: PCP Internal Medicine; Visit Provider Radiology Diagnostic Radiology | DX: R06.09 Other forms of dyspnea (principal) | CPT/HCPCS: 71046 ==

== ENCOUNTER → 2024-11-19 23:59 | Outpatient (BNV) | payer MEDICARE, OTHER, SELFPAY ==
--- NOTE | 2024-12-01 09:35 | MHC.OFFVIS ---
Intake Visit Reasons: Remote device check- [facility] [employer] Allergies nut - unspecified [NUTS] Allergy (Severe, Verified 11/26/24 13:22) ANAPHYLAXIS PFSH Medical History Elevated LFTs Essential hypertension Normally functioning cardiac pacemaker present History of GI bleed Gout HTN (hypertension) Hyperlipidemia Surgical History H/O transurethral resection of bladder tumor (TURBT) History of surgical removal of pilonidal cyst History of esophagogastroduodenoscopy (EGD) History of permanent cardiac pacemaker placement (~01/2016) Family History Father No problems noted. Mother No problems noted. Social History Housing: House Are you a primary client care coordinator to a significant other at home: No Do you presently have visiting nurse or other home services: No Alcohol intake: current Alcohol intake frequency: 0-2 drinks per day Patient Tobacco Use Status: Current everyday Tobacco user Tobacco use type: Cigar Years Smoked: 20 e-Cigarette/Vaping Use: Never Used service: No Current occupational status: retired Current occupational exposures/hazards: No Cognitive needs: No Hearing needs: No Vision needs: Yes Office Procedures Cardiac Device Check Cardiac Device Check Details: Date of service- 11/19/2024 ; Battery life >2 years; normal lead parameters; AP 20%; REGULATED PROGRAM MANAGER 46%; no significant arrhythmias. Overall normal device function. [id number] Cardiac Device Interrogation, pacemaker Procedure code (CPT) selection complete Assessment & Plan Assessment & Plan (1) Normally functioning cardiac pacemaker present: Code(s): Z95.0 - Presence of cardiac pacemaker Category: Medical (2) Bradycardia: Code(s): R00.1 - Bradycardia, unspecified Category: Medical Plan x Coding Level of Care Code Procedure Only Diagnoses Normally functioning cardiac pacemaker present Z95.0 Bradycardia R00.1 CPT Codes Cardiac Device Check - Cardiac Device 12: [id number] Cardiac Device Interrogation, pacemaker ([id number])
== END ==
PROVIDERS: PCP Internal Medicine; Visit Provider Internal Medicine
DX: R00.1 Bradycardia, unspecified (principal); Z95.0 Presence of cardiac pacemaker
CPT/HCPCS: 93294

== ENCOUNTER → 2024-11-26 13:21 | Outpatient (BNVA) | payer MEDICARE, OTHER, SELFPAY | PROVIDERS: PCP Internal Medicine; Visit Provider Urology ==

== ENCOUNTER 2024-12-18 10:29 | Outpatient (AMB) | payer MEDICARE, OTHER, SELFPAY ==
[2024-12-18 10:30] VITALS: BP 118/62; PULSE 75; RESP 18; TEMP 36.6; O2SAT 98; BMI 31.6
--- NOTE | 2024-12-18 10:30 | MHC.PC.OV ---
Vital Signs 12/18/24 10:30 Height 6 ft 2 in Weight 246 lb BMI 31.6 BP 118/62 Blood Pressure Location Lt brachial Position Sitting Respiration 18 Pulse 75 Pulse Source Pulse Oximeter Temp 97.9 F Temp Source Oral Pulse Oximetry (%) 98 Oxygen Delivery Method Room Air Intake Visit Reasons: 1 month follow up Intake Note: Pt is here today for 1 month follow up visit. Allergies nut - unspecified [NUTS] Allergy (Severe, Verified 12/18/24 10:33) ANAPHYLAXIS Medication List - Last Reconciled 12/18/24 by Eden Self MD allopurinol 200 mg (2 x 100 mg) PO DAILY Breo Ellipta 100-25 mcg/dose (fluticasone furoate-vilanterol) 1 inh inhalation DAILY NS diltiazem HCl CD 120 mg PO DAILY simvastatin 5 mg PO BEDTIME tamsulosin 0.4 mg PO BEDTIME Trelegy Ellipta 100-62.5-25 mcg (hzuuktpftrf-kcpdzonvg-jfhekuqx) 1 inh inhalation DAILY NS trimethoprim 100 mg PO DAILY 30 days vit C,J-Rb-jywbu-lutein-zeaxan 250-90-40-1 mg (PreserVision AREDS-2) 1 tab PO BID Tobacco use date assessed: 12/18/24 Dental Screening Dental Screen Date: 11/14/24 HPI 1 month follow up HPI Details Pt presents for f/u HTN, hyperlipid, stable on meds. Pt still c/o LONGORIA when walking up and down the stairs.Pt denies PND, dyspnea. Pt started chemo for bladder ca. PFSH Medical History Elevated LFTs Essential hypertension Normally functioning cardiac pacemaker present History of GI bleed Gout HTN (hypertension) Hyperlipidemia Surgical History H/O transurethral resection of bladder tumor (TURBT) History of surgical removal of pilonidal cyst History of esophagogastroduodenoscopy (EGD) History of permanent cardiac pacemaker placement (~01/2016) Family History Father No problems noted. Mother No problems noted. Social History Housing: House Are you a primary customer care manager to a significant other at home: No Do you presently have visiting nurse or other home services: No Alcohol intake: current Alcohol intake frequency: 0-2 drinks per day Patient Tobacco Use Status: Current everyday Tobacco user Tobacco use type: Cigar Years Smoked: 20 e-Cigarette/Vaping Use: Never Used service: No Current occupational status: retired Current occupational exposures/hazards: No Cognitive needs: No Hearing needs: No Vision needs: Yes Questionnaire Thrive Questionnaire Date Thrive assessed: 11/14/24 HARDIK-7 AMB Questionnaire HARDIK-7 Date HARDIK - 7 assessed: 11/14/24 Source: Developed by Drs. Pancho Diop, Mindy Walton, Trent Soria and colleagues, with an educational carrie from [employer]. Review of Systems Const All systems reviewed & are unremarkable except as noted in HPI and below Eyes Reports no additional complaints ENT Reports no additional complaints Card Reports no additional complaints Resp Reports no additional complaints GI Reports no additional complaints Reports no additional complaints Physical exam (Primary Care) Vital Signs: Last Vital Signs Temp 97.9 F 12/18/24 10:30 Pulse 75 12/18/24 10:30 Resp 18 12/18/24 10:30 BP 118/62 12/18/24 10:30 Pulse Ox 98 12/18/24 10:30 Oxygen Delivery Method Room Air 12/18/24 10:30 BMI result Body Mass Index 31.6 Tobacco/Smoking Status: Tobacco use Status Tobacco use date assessed 12/18/24 12/18/24 10:30 Patient Tobacco Use Status Current everyday Tobacco 12/18/24 10:30 Tobacco use type Cigar 12/18/24 10:30 e-Cigarette/Vaping Use Never Used 12/18/24 10:30 Thrive Assessment: Date of Thrive Assessment Date Thrive assessed 11/14/24 12/18/24 10:30 Const General: no acute distress HENMT Head: Yes normal to inspection Face and sinus: Yes normal facial exam Mouth: Normal oral and palatal mucosa present Eyes General: appearance normal, both eyes and all related structures Neck Neck: Yes no lymphadenopathy and Yes supple Resp Effort & Inspection: normal respiratory effort Auscultation: diminished lung sounds Cardio Rhythm: regular rhythm Heart sounds: S1 normal heart sound present and S2 normal heart sound present Coding Level of Care Code Est Pt Level 4 (83511) Diagnoses COPD (chronic obstructive pulmonary disease) J44.9 Anemia D64.9 Bladder cancer C67.9 Heart block I45.9 NSVT (nonsustained ventricular tachycardia) I47.2 Assessment & Plan Assessment & Plan (1) COPD (chronic obstructive pulmonary disease): Code(s): J44.9 - Chronic obstructive pulmonary disease, unspecified Category: Medical Plan: Obtain PFTs change Breo to Trulicity and smoking quitting discussed with the patient (2) Anemia: Code(s): D64.9 - Anemia, unspecified Category: Medical Plan: Check CBC and iron study (3) Bladder cancer: Comment: - high-grade invasive s/p TURBT with mitomycin and cytarabine 09/08/2024 f/u with Dr. Page Code(s): C67.9 - Malignant neoplasm of bladder, unspecified Category: Medical Plan: Follow-up with urology (4) Heart block: Comment: pacemaker 2015 Code(s): I45.9 - Conduction disorder, unspecified Category: Medical Plan: Follow-up with the Cardiology for pacemaker check (5) NSVT (nonsustained ventricular tachycardia): Code(s): I47.2 - Ventricular tachycardia Category: Medical Plan: Continue diltiazem Orders: Orders PFT pulmonary function test Today J44.9 - Chronic obstructive pulmonary disease, unspecified IRON PROFILE Today D64.9 - Anemia, unspecified, J44.9 - Chronic obstructive pulmonary disease, unspecified Comprehensive Met. Panel Today D64.9 - Anemia, unspecified, J44.9 - Chronic obstructive pulmonary disease, unspecified Complete Blood Count Auto Diff Today D64.9 - Anemia, unspecified, J44.9 - Chronic obstructive pulmonary disease, unspecified Medications: New Trelegy Ellipta 100-62.5-25 mcg (ixifnkdagax-uxuglwetw-mxhfcdxf) 1 inh inhalation DAILY 180 ea 5RF NS Trelegy Ellipta 100-62.5-25 mcg (jqowbyvipgh-cowhschll-xrbwgcbg) 1 inh inhalation DAILY 60 ea 5RF NS
--- OUTSIDE RECORDS SUMMARY | 2024-12-18 12:13 | XMS_ITS | Clinical Summary ---
Author Organization 175 [facility] Address 175 [place] [address] Phone Care Team Providers Care Per Diem Registered Nurse Name Role Phone Eden Self MD Primary Care Provider [phone] Allergies Active Allergy Reactions Criticality Noted Date Comments Nut - Unspecified 06/13/2023 Medications lisinopriL (PRINIVIL,ZESTRI L) 10 mg tablet Take 1 tablet (10 mg total) by mouth 1 (one) time each day. Active simvastatin (ZOCOR) 5 mg tablet Take 1 tablet (5 mg total) by mouth at bedtime. Active allopurinoL (ZYLOPRIM) 100 mg tablet Take 1 tablet (100 mg total) by mouth 2 (two) times a day. Active DOXYCYCLINE HYCLATE ORAL Take by mouth. Active cephalexin (KEFTAB) 500 mg tablet Take by mouth. Active Active Problems Problem Noted Date Diagnosed Date Callus of foot 08/04/2024 Hyperglycemia 08/04/2024 Essential hypertension 08/04/2024 Hyperlipidemia 08/04/2024 Gout 08/04/2024 Encounters Date Type Department Care Team Description 10/23/2024 10:30 AM EST Office Visit Orthopedic Surgery [facility] [address] [address] Eliecer Reza, DPM Hypertrophy of nail (Primary Dx); Xerosis of skin; Fissure in skin of both feet from Last 3 Months Social History Tobacco Use Types Packs/Day Years Used Date Smoking Tobacco: Never Assessed Sex and Gender Information Value Date Recorded Sex Assigned at Not on file Legal Sex Male 8:25 PM EST Gender Identity Not on file Sexual Orientation Not on file Obstetrics History Last Filed Vital Signs Vital Sign Reading Time Taken Comments Blood Pressure - - Pulse - - Temperature - - Respiratory Rate - - Oxygen Saturation - - Inhaled Oxygen Concentration - - Weight 110 kg (243 lb) 10/23/2024 10:15 AM EST Height 188 cm (6' 2 ) 08/12/2024 9:37 AM EDT Body Mass Index 31.2 08/12/2024 9:37 AM EDT Plan of Treatment Upcoming Encounters Date Type Department Care Team (Late st Contact Info) Description 01/06/2025 10:45 AM EDT Office Visit Orthopedic Surgery - [place] [address] [phone] Eliecer Reza, DPM [address] [address] Health Maintenance Due Date Last Done Comments Pneumococcal Vaccine: 50+ Ye ars (1 of 1 - PCV) 1990 Zoster Vaccines (1 of 2) 1990 RSV Immunization Patients 60 + Years Old (1 - 1-dose 75+ series) 2015 Cholesterol Screening (Lipid Panel) 11/16/2023 Depression Screening 11/16/2023 Falls Risk Assessment 11/16/2023 Medicare Annual Wellness Visit 11/16/2023 Social Influencers of Health Screening 11/16/2023 COVID-19 Vaccine (2 - 2023-2 5 season) 2024 07/11/2022 Influenza Vaccine (#1) 2024 Hypertension/CHF/CAD Annual BMP Blood Test 08/20/2024 DTaP,Tdap,and Td Vaccines (2 - Td or Tdap) 06/07/2033 06/07/2023 HIB Vaccines Aged Out No longer eligi ble based on patient's age to complete this topic HPV Vaccines Aged Out No longer eligi ble based on patient's age to complete this topic Hepatitis A Vaccines Aged Out No long er eligible based on patient's age to complete this topic Hepatitis B Vaccines Aged Out No long er eligible based on patient's age to complete this topic IPV Vaccines Aged Out No longer eligi ble based on patient's age to complete this topic MMR Vaccines Aged Out No longer eligi ble based on patient's age to complete this topic Meningococcal ACWY Vaccine Aged Out N o longer eligible based on patient's age to complete this topic Meningococcal B Vacine Aged Out No lo nger eligible based on patient's age to complete this topic RSV Immunization Patients Un khushboo 20 months Aged Out No longer eligible b ased on patient's age to complete this topic Varicella Vaccines Aged Out No longer eligible based on patient's age to complete this topic Insurance [facility] Care Teams Per Diem Registered Nurse Relationship Specialty Start Date End Date Eden Self MD [address] [place] [address] PCP - General 05/09/23
== END 2024-12-18 11:31 | disposition home or self-care (01) ==
PROVIDERS: PCP Internal Medicine; Visit Provider Internal Medicine
DX: J44.9 Chronic obstructive pulmonary disease, unspecified (principal); C67.9 Malignant neoplasm of bladder, unspecified; I47.20 Ventricular tachycardia, unspecified; I45.9 Conduction disorder, unspecified; D64.9 Anemia, unspecified

== ENCOUNTER 2024-12-18 10:29 | Outpatient (REF) | payer MEDICARE, OTHER, SELFPAY ==
[2024-12-18 13:37] LABS: Alanine Aminotransferase 38 U/L (0-40); Albumin Level 3.7 g/dL (3.5-5.0); Alkaline Phosphatase 99 U/L (39-117); Anion Gap 9 (12-20); Aspartate Amino Transferase 34 U/L (5-37); Bilirubin Total 0.5 mg/dL (0.0-1.0); Blood Urea Nitrogen 22 mg/dL (9-16); Calcium 9.1 mg/dL (8.4-10.2); Carbon Dioxide 21 mmol/L (22-29); Chloride 114 mmol/L (96-108); Estimated Glomerular Filt Rate 53; Glucose Random 77 mg/dL (60-115); Iron 84 mcg/dL (45-160); Percent Iron Saturation 28 % (15-50); Potassium 4.2 mmol/L (3.3-5.1); Sodium 140 mmol/L (135-145); Total Iron Binding Capacity 298 mcg/dL (228-428); Total Protein 7.4 g/dL (6.5-8.0); Unsaturated Iron Binding 214 ug/dL
--- OUTSIDE RECORDS SUMMARY | 2024-12-18 13:56 | XMS_ITS | Clinical Summary ---
Author Organization 175 [facility] Address 175 [place] [address] Phone Care Team Providers Care Supervisor Quality Control Name Role Phone Eden Self MD Primary Care Provider [phone] Allergies Active Allergy Reactions Criticality Noted Date [...] 10:30 AM EST Office Visit Orthopedic Surgery [facility] [address] [phone] Eliecer Reza, DPM Hypertrophy of [...] AM EDT Office Visit Orthopedic Surgery - [place] [address] [phone] Eliecer Reza, DPM [address] [address] Health Maintenance Due Date Last Done Comments [...] patient's age to complete this topic Insurance [facility] Care Teams Supervisor Quality Control Relationship Specialty Start Date End Date Eden Self MD [address] [facility] [place] [address] PCP - General 05/09/23
== END 2024-12-18 10:30 | disposition home or self-care (01) ==
LOC: HO.HMGCLDS 10:29
PROVIDERS: PCP Internal Medicine; Visit Provider Internal Medicine
DX: J44.9 Chronic obstructive pulmonary disease, unspecified (principal); D64.9 Anemia, unspecified; C67.9 Malignant neoplasm of bladder, unspecified; I45.9 Conduction disorder, unspecified; I47.29 Other ventricular tachycardia; I10 Essential (primary) hypertension; E78.5 Hyperlipidemia, unspecified; Z95.0 Presence of cardiac pacemaker
CPT/HCPCS: 36415; 80053; 83540; 99212

== ENCOUNTER → 2025-01-12 09:36 | Outpatient (REF) | payer MEDICARE, OTHER, SELFPAY ==
--- NOTE | 2025-01-12 10:10 | CA_ITS ---
Transthoracic Echocardiogram Patient (Last, First, Middle): Ricardo Singh S Gender: Male Date of : 1940 Age: 84 Procedure Date: 01/12/2025 Procedure Type: Transthoracic Echocardiogram Location: OP Height: 187.96 cm Weight: 113.4 kg BSA: 2.39 m2 Heart Rate: bpm BP: 124 / 80 mmHg Editorial Cartoonist: Referring MD: Victorino Uriostegui MD Business Continuity Coordinator: Andrés Asif MD Symptoms: I35.0 - Nonrheumatic aortic (valve) stenosis Study Quality: Fair ECG Rhythm: Ventriculary paced rhythm Conclusions: - 1. Normal LV ejection fraction 55-60% with mild LVH with impaired relaxation filling pattern 2. Mild aortic stenosis 3. Normal RV systolic pressure 4. Upper limits of normal ascending aortic size at 3.5 cm 5. No gross pericardial effusion Findings Left Ventricle Normal left ventricular size and systolic function. There is mildly increased left ventricular wall thickness. The visually estimated ejection fraction is between 55-60%. There is paradoxical septal motion consistent with a right ventricular pacemaker. Spectral Doppler is indicative of an impaired relaxation filling pattern. E/E prime ratio is between 8 and 15 consistent with indeterminate filling pressures. Right Ventricle Normal right ventricular cavity size. There is normal right ventricular systolic function. There is a pacemaker wire seen in the right ventricle. Atria The left atrium is likely dilated. Interatrial shunt cannot be excluded. The right atrium is normal in size. A pacemaker wire is identified in the right atrium. Aortic Valve The aortic valve was not well visualized. There is mild calcification of the aortic valve. There is mild aortic valve stenosis. The peak aortic gradient is 20 mmHg.The mean gradient is 11 mmHg. The aortic valve area is 1.95 cm2. There is no aortic valve regurgitation. Mitral Valve There is mild anterior mitral leaflet thickening. There is mild mitral annular calcification. There is trace mitral valve regurgitation. There is no mitral valve stenosis. Pulmonic Valve The pulmonic valve was not well visualized. Tricuspid Valve Likely normal tricuspid valve structure and function. There is mild tricuspid valve regurgitation. The right ventricular systolic pressure is normal. The right ventricular systolic pressure is 22 mmHg. Normal right atrial pressure. There is no evidence of pulmonary hypertension. Great Vessels The pulmonary artery was not well visualized. Venous The inferior vena cava is normal in size and collapses greater than 50% with inspiration. Pericardium/Pleural There is no evidence of pericardial effusion. Prior Study Comparison No significant change compared to prior study dated: 04/08/2024. Measurements 2D Linear Measurements IVSd: 1.21 0.6-0.9/0.6-1.0 cm LVIDd: 4.75 3.9-5.3/4.2-5.9 cm LVIDd Index: 1.99 2.4-3.2/2.2-3.1 cm/m2 LVIDs: 3.30 2.0-3.6 cm LVPWd: 1.27 0.7-1.1 cm Ao Root: 3.10 2.1-3.5 cm LA Diam: 3.40 2.7-3.8/3.0-4.0 cm LAIDs Index: 1.42 1.5-2.3 cm/m2 LV Mass: 281.59 67-162/88-224 g LV Mass Index: 117.82 43-95/49-115 g/m2 LVOT Diam: 2.20 3.0+(-)1.3 cm Mitral Valve MV Pk E: 0.57 MV PK A: 0.77 MV Decel Time: 251.00 E/A: 0.70 E'Lateral: 8.27 E'Medial: 4.68 E/E' Med: 12.20 E/E' Lat: 6.90 PHT: 73.00 MVA PHT: 3.01 Decel [place]: 2.27 Aortic Valve AoV Pk Jim: 2.26 AoV Mn Jim: 1.57 AoV VTI: 0.45 AoV Pk Grad: 20.00 Aov Mn Grad: 11.00 ROSA MARIA Cont.VTI: 1.95 LVOT LVOT Pk Jim: 1.07 LVOT Mn Jim: 0.67 LVOT VTI: 0.23 LVOT Pk Grad: 5.00 LVOT Mn Grad: 2.00 LVOT Diam: 2.20 LVOT Area: 3.80 Diastolic Function MV Pk E: 0.57 MV Pk A: 0.77 E/A: 0.70 E'Medial: 4.68 E/E' Med: 12.20 E' Laterial: 8.27 E/E' Lat: 6.90 Right Ventricle TAPSE (mm): 29.00 Tricuspid Valve TR Pk Jim: 2.18 TR Pk Grad: 19.00 RA Press: 3.00 RVSP: 22.00 Great Vessels Aorta Ao Root-2D: 3.10 2.0-3.7 cm Ao Asc: 3.50 2.1-3.4 cm Pulmonary Valve PV Pk Jim: 1.14 Peak PV Grad: 5.00 Updated in Other Vendor System with Status of Final Andrés Asif MD electronically signed on 01/12/2025 12:38:29 PM with status of Final
== END ==
LOC: HO.CARD 09:36
PROVIDERS: PCP Internal Medicine; Visit Provider Internal Medicine
DX: I35.0 Nonrheumatic aortic (valve) stenosis (principal); I47.29 Other ventricular tachycardia
CPT/HCPCS: 93306

== ENCOUNTER → 2025-01-12 10:10 | Outpatient (BNV) | payer MEDICARE, OTHER, SELFPAY | PROVIDERS: PCP Internal Medicine; Visit Provider Internal Medicine Cardiovascular Disease | DX: I35.0 Nonrheumatic aortic (valve) stenosis (principal); I35.8 Other nonrheumatic aortic valve disorders; I34.81 Nonrheumatic mitral (valve) annulus calcification; I36.1 Nonrheumatic tricuspid (valve) insufficiency | CPT/HCPCS: 93306 ==

== ENCOUNTER 2025-01-27 10:34 | Outpatient (REF) | payer MEDICARE, OTHER, SELFPAY ==
--- NOTE | 2025-01-27 10:39 | PFT_ITS ---
Flows: FEV1: 107 % of predicted at 3.12 L FVC: 106 % of predicted at 4.55 L FEV1/FVC: 74 % Bronchodilator response: Absent Volumes: Total lung capacity: 92 % of predicted at 7.41 L Residual volume: 84 % of predicted at 2.68 L Slow vital capacity: 104 % of predicted at 4.72 L Expiratory reserve volume: 68 % of predicted at 1.01 L Diffusion capacity: Mildly decreased Impression: No obstructive or restrictive ventilatory defect. No bronchodilator response. Decreased expiratory reserve volume suggests extrathoracic restriction likely secondary to abdominal obesity. Decreased diffusion capacity suggests emphysema. MTDD
[2025-01-27 11:20] VITALS: PULSE 65; O2SAT 98
--- OUTSIDE RECORDS SUMMARY | 2025-01-27 12:38 | XMS_ITS | Clinical Summary ---
Author Organization 175 [facility] Address [address] [place] [address] Phone Care Team Providers Care Spectacle Truer Name Role Phone Eden Self MD Primary Care Provider [phone] Allergies Active Allergy Reactions Criticality Noted Date [...] Encounters Date Type Department Care Team Description 01/06/2025 10:45 AM EDT Office Visit Orthopedic Surgery [facility] [address] [phone] Eliecer Reza, DPM Hypertrophy of [...] - - Weight 110 kg (243 lb) 01/06/2025 10:22 AM EDT Height 188 cm (6' 2.02 ) 01/06/2025 10:22 AM EDT Body Mass Index 31.19 01/06/2025 10:22 AM EDT Plan of Treatment Upcoming Encounters Date Type Department Care Team ([facility] st Contact Info) Description 03/09/2025 10:30 AM EDT Office Visit Orthopedic Surgery - [place] [address] [phone] Eliecer Reza, DPM [address] [address] Health Maintenance Due Date Last Done Comments Pneumococcal Vaccine: 50+ Ye ars (1 of 1 - PCV) 1990 Zoster Vaccines (1 of 2) 1990 RSV Immunization Adult Patie nts (1 - 1-dose 75+ series) 2015 Cholesterol [...] age to complete this topic Meningococcal B Vaccine Aged Out No l onger eligible based on patient's age to complete this topic RSV Immunization Patients Un khushboo 20 months Aged Out No longer eligible b ased on patient's age to complete this topic Varicella Vaccines Aged Out No longer eligible based on patient's age to complete this topic Insurance [facility] Care Teams Spectacle Truer Relationship Specialty Start Date End Date Eden Self MD [address] [facility] [place] [phone] PCP - General 05/09/23
== END 2025-01-27 10:35 | disposition home or self-care (01) ==
LOC: HO.RESP 10:34
PROVIDERS: PCP Internal Medicine; Visit Provider Internal Medicine
DX: J44.9 Chronic obstructive pulmonary disease, unspecified (principal)
CPT/HCPCS: 94010; 94640; 94727; 94729

== ENCOUNTER → 2025-01-27 10:39 | Outpatient (BNV) | payer MEDICARE, OTHER, SELFPAY | PROVIDERS: PCP Internal Medicine; Visit Provider Internal Medicine Pulmonary Disease | DX: J44.9 Chronic obstructive pulmonary disease, unspecified (principal) | CPT/HCPCS: 94060; 94727; 94729 ==

== ENCOUNTER 2025-01-28 12:42 | Outpatient (AMB) | payer MEDICARE, OTHER, SELFPAY ==
--- NOTE | 2025-01-28 12:45 | A.OFFVIS_ITS ---
Intake Visit Reasons: Follow up/ Hives? Vb Net Programmer Required: No Allergies nut - unspecified [NUTS] Allergy (Severe, Verified 12/18/24 10:33) ANAPHYLAXIS HPI Comments Details: Ricardo is a pleasant male. He is a patient of Dr. Self. He seen for the following urologic conditions - bladder mass - bladder cancer on cystoscopy Has been undergoing mitomycin-C with cytarabine Had rash Not sure if it was secondary to a spider bite Responded well to oral Benadryl Has Plan in 6 weeks' time for repeat bladder biopsy under anesthesia Resection shows no high-grade muscularis propria invasion Given age will try 6 week induction mitomycin-C with cytarabine Plan repeat biopsy in 12 weeks Left indwelling stent placed for ureteric edema at time of TURBT Bladder cancer - high grade invasive - [id number] 09/14 Repeat TURBT 11/15 Bladder, biopsy: - High grade urothelial carcinoma; definitive invasion not seen; background acute and chronic cystitis. 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 Mother No problems noted. Social History Housing: House Are you a primary laboratory animal care veterinarian to a significant other at home: No Do you presently have visiting nurse or other home services: No Alcohol intake: current Alcohol intake frequency: 0-2 drinks per day Patient Tobacco Use Status: Current everyday Tobacco user Tobacco use type: Cigar Years Smoked: 20 e-Cigarette/Vaping Use: Never Used service: No Current occupational status: retired Current occupational exposures/hazards: No Cognitive needs: No Hearing needs: No Vision needs: Yes Review of Systems Const Denies chills and Denies fever(s) Card Reports no additional complaints and Denies syncope Resp Denies cough GI Denies abdominal pain and Denies heartburn Reports as per HPI and Denies change in libido Neuro Denies syncope Psych Denies change in libido Endo Denies change in libido Physical Exam Const General: cooperative, healthy appearing, comfortable and no acute distress Orientation/consciousness: patient oriented x3 HEENT Face and sinus: Yes normal facial exam Mouth: moist mucous membranes Neck Neck: Yes normal visual inspection, Yes full ROM and Yes trachea midline Chest Chest palpation & inspection: normal inspection of the chest Resp Effort & Inspection: normal respiratory effort, able to speak in complete sentences and no respiratory distress GI Inspection: Yes normal to inspection Back/Spine/Pelvis Cervical Spine: normal cervical lordosis Thoracic/Lumbar Spine: thoracic and lumbar spine normal to inspection Skin General skin exam: no rashes or lesions noted Neuro General: patient oriented x3, gait normal, tone normal and moves all extremities Extrem General: Yes normal to inspection and Yes capillary refill normal Assessment & Plan Assessment & Plan (1) Hives: Code(s): L50.9 - Urticaria, unspecified Category: Medical (2) Bladder cancer: Comment: - high-grade invasive s/p TURBT with mitomycin and cytarabine 09/08/2024 f/u with Dr. Page Code(s): C67.9 - Malignant neoplasm of bladder, unspecified Category: Medical Plan Keep planned follow-up Patient Instructions: This note is constructed using voice recognition software. While every effort has been made to ensure accuracy whiteprinting machine operator errors may have been included. Imaging studies, laboratory and physical exam results were discussed and reviewed in detail. No major barriers to patient understanding were identified. An opportunity to ask questions regarding the treatment plan was provided. All questions were answered. The patient expressed understanding and agreement with the above treatment plan. The patient is aware they should contact our office by phone for worsening of their current condition or the appearance of new urologic symptoms. Compliance is encouraged with any medications and followup testing that is ordered. It is a privilege to participate in the urologic care of your patient. If you have any questions or concerns regarding treatment for the above conditions, or other urologic issues, please do not hesitate to contact me. The office telephone contact is [phone]. Sincerely, Dr Salomón Page MD, [facility] - Urology Compassionate Specialist Care for the Genitourinary System Coding Level of Care Code Est Pt Level 3 (10987) Complex EM visit Add On G2211 Diagnoses Hives L50.9 Bladder cancer C67.9
--- OUTSIDE RECORDS SUMMARY | 2025-01-28 14:41 | XMS_ITS | Clinical Summary ---
Author Organization 175 [facility] Address [address] [place] [address] Phone Care Team Providers Care Press Brake Operator Name Role Phone Eden Self MD Primary Care Provider [phone] Allergies Active Allergy Reactions Criticality Noted Date [...] 10:45 AM EDT Office Visit Orthopedic Surgery [facility] [address] [address] Eliecer Reza, DPM Hypertrophy of [...] Upcoming Encounters Date Type Department Care Team ([facility] st Contact Info) Description 03/09/2025 10:30 AM EDT Office Visit Orthopedic Surgery - [place] [address] [phone] Eliecer Reza, DPM [address] [address] Health Maintenance Due Date Last Done Comments [...] age to complete this topic Insurance [facility] Care Teams Press Brake Operator Relationship Specialty Start Date End Date Eden Self MD [address] [facility] [place] [phone] PCP - General 05/09/23
== END 2025-01-28 12:57 | disposition home or self-care (01) ==
LOC: HO.HUSH 12:42
PROVIDERS: PCP Internal Medicine; Visit Provider Urology
DX: L50.9 Urticaria, unspecified (principal); C67.9 Malignant neoplasm of bladder, unspecified
CPT/HCPCS: 99213; G2211

== ENCOUNTER → 2025-01-28 12:42 | Outpatient (BNVA) | payer MEDICARE, OTHER, SELFPAY | PROVIDERS: PCP Internal Medicine; Visit Provider Urology | DX: C67.9 Malignant neoplasm of bladder, unspecified (principal); L50.9 Urticaria, unspecified | CPT/HCPCS: 99212 ==

== ENCOUNTER → 2025-02-18 23:59 | Outpatient (BNV) | payer MEDICARE, OTHER, SELFPAY ==
--- NOTE | 2025-02-22 08:51 | A.OFFVIS_ITS ---
Intake Visit Reasons: Remote device check- [facility] Allergies nut - unspecified [NUTS] Allergy (Severe, Verified 12/18/24 10:33) ANAPHYLAXIS PFSH Medical History (Updated 02/18/25 @ 14:19 by Lilliana Howard RN) NSVT (nonsustained ventricular tachycardia) RBBB (right bundle branch block) Bladder cancer BPH (benign prostatic hyperplasia) COPD (chronic obstructive pulmonary disease) Elevated LFTs Essential hypertension Normally functioning cardiac pacemaker present History of GI bleed Gout HTN (hypertension) Hyperlipidemia Surgical History (Updated 02/18/25 @ 13:57 by Lilliana Howard RN) H/O transurethral resection of bladder tumor (TURBT) History of surgical removal of pilonidal cyst History of esophagogastroduodenoscopy (EGD) History of permanent cardiac pacemaker placement (~01/2016) Family History Father No problems noted. Mother No problems noted. Social History Housing: House Are you a primary healthcare corporate account director to a significant other at home: No Do you presently have visiting nurse or other home services: No Alcohol intake: current Alcohol intake frequency: 0-2 drinks per day Patient Tobacco Use Status: Current someday Tobacco user Tobacco use type: Cigar Years Smoked: 20 e-Cigarette/Vaping Use: Never Used service: No Current occupational status: retired Current occupational exposures/hazards: No Cognitive needs: No Hearing needs: No Vision needs: Yes Office Procedures Cardiac Device Check Cardiac Device Check Details: Date of service- 02/18/2025 ; Battery life 1.8 years; normal lead parameters; AP 27%; NATURAL SCIENCES PROFESSOR 54%; possibly brief atrial tachycardia, otherwise, no significant arrhythmias. Overall normal device function. [id number] Cardiac Device Interrogation, pacemaker Procedure code (CPT) selection complete Assessment & Plan Assessment & Plan (1) Encounter for interrogation of cardiac pacemaker: Comment: 2015, Code(s): Z45.018 - Encounter for adjustment and management of other part of cardiac pacemaker Category: Medical (2) Heart block: Comment: pacemaker 2016 Code(s): I45.9 - Conduction disorder, unspecified Category: Medical Plan x Coding Level of Care Code Procedure Only Diagnoses Encounter for interrogation of cardiac pacemaker Z45.018 Heart block I45.9 CPT Codes Cardiac Device Check - Cardiac Device 12: [id number] Cardiac Device Interrogation, pacemaker ([id number])
== END ==
PROVIDERS: PCP Internal Medicine; Visit Provider Internal Medicine
DX: I45.9 Conduction disorder, unspecified (principal); Z45.018 Encounter for adjustment and management of other part of cardiac pacemaker
CPT/HCPCS: 93294

== ENCOUNTER 2025-02-23 07:14 | Day surgery (SDC) | payer MEDICARE, OTHER, SELFPAY ==
--- OUTSIDE RECORDS SUMMARY | 2024-12-31 06:31 | XMS_ITS | Clinical Summary ---
Author Organization 175 [facility] Address [address] [place] [address] Phone Care Team Providers Care Concrete Mixing Truck Driver Name Role Phone Eden Self MD Primary Care Provider [phone] Allergies Active Allergy Reactions Criticality Noted Date [...] Surgery [facility] [address] [address] Eliecer Reza, DPM Hypertrophy of [...] AM EDT Office Visit Orthopedic Surgery - [place] [address] [phone] Eliecer Reza, DPM [address] [address] Health Maintenance Due Date Last Done Comments [...] patient's age to complete this topic Insurance [facility] Care Teams Concrete Mixing Truck Driver Relationship Specialty Start Date End Date Eden Self MD [address] [place] [phone] PCP - General 05/09/23
[2025-02-18 14:12] VITALS: BMI 31.7
[2025-02-23] VITALS (7 sets, daily range): BP systolic 90–128; BP diastolic 39–71; PULSE 61–73; RESP 14–20; TEMP 36.7–36.8; O2SAT 90–97; BMI 14.3
[2025-02-23] MEDS: levoFLOXacin 500 MG TABLET PO (08:30)
[2025-02-23] MEDS: Lactated Ringers 1,000 ML 80 ML IVCONT (08:32)
--- NOTE | 2025-02-23 09:10 | HO.ANESPROP2 ---
HPI - Anesthesia Eval Consult details Narrative: For cysto, bladder bx. PMFSH Active Problems Active Problems: All Active Problems Hives (Acute) Anemia (Acute) COPD (chronic obstructive pulmonary disease) (Acute) LONGORIA (dyspnea on exertion) (Acute) Urinary retention (Acute) Orthostatic hypotension (Acute) Bladder cancer (Acute) Nonrheumatic aortic (valve) stenosis (Acute) Pre-operative cardiovascular examination (Acute) Enlarged prostate (Acute) Bradycardia (Acute) Nephrolithiasis (Acute) Bladder mass (Acute) SOB (shortness of breath) (Acute) Annual physical exam (Acute) Hematuria (Acute) Sebaceous cyst (Acute) Callus of foot (Acute) RBBB (Acute) Heart block (Acute) Bifascicular block (Acute) Syncope (Acute) NSVT (nonsustained ventricular tachycardia) (Acute) Hyperglycemia (Acute) Encounter for interrogation of cardiac pacemaker (Acute) Elevated LFTs (Acute) Hyperlipidemia (Acute) Essential hypertension (Acute) Normally functioning cardiac pacemaker present (Acute) History of GI bleed (Acute) Gout (Acute) Past Medical History Medical History (Updated 02/18/25 @ 14:19 by Lilliana Howard RN) NSVT (nonsustained ventricular tachycardia) RBBB (right bundle branch block) Bladder cancer BPH (benign prostatic hyperplasia) COPD (chronic obstructive pulmonary disease) Elevated LFTs Essential hypertension Normally functioning cardiac pacemaker present History of GI bleed Gout HTN (hypertension) Hyperlipidemia Family History Family History Father No problems noted. Mother No problems noted. Family history of problems with anesthesia: No Surgical History Surgical History (Updated 02/18/25 @ 13:57 by Lilliana Howard RN) H/O transurethral resection of bladder tumor (TURBT) History of surgical removal of pilonidal cyst History of esophagogastroduodenoscopy (EGD) History of permanent cardiac pacemaker placement (~01/2016) History of Problems with Anesthesia: No Social History Social History Housing: House Are you a primary career services director to a significant other at home: No Do you presently have visiting nurse or other home services: No Alcohol intake: current Alcohol intake frequency: 0-2 drinks per day Patient Tobacco Use Status: Current someday Tobacco user Tobacco use type: Cigar Years Smoked: 20 e-Cigarette/Vaping Use: Never Used Use of substances other than those prescribed or required for medical reasons: No Spiritual Healthcare Practices: no Latter-Day Healthcare Practices: no-Evangelical Cultural Healthcare Practices: no Are you DNR?: No Advance Directives Information Provided: Yes (as above noted) Advance Directives on File: No Poor oral hygiene: No service: No Current occupational status: retired Current occupational exposures/hazards: No Cognitive needs: No Hearing needs: No Vision needs: Yes Meds Allergies Allergy/AdvReac Type Severity Reaction Status Date / Time nut - unspecified [NUTS] Allergy Severe ANAPHYLAXIS Verified 12/18/24 10:33 Active Medications: Current Medications Lactated Ringer's (Lr) 1,000 mls @ 80 mls/hr IVCONT .[id number] KEYA Last Admin: 02/23/25 08:32 Dose: 80 mls/hr Home Medications ?Medication ?Instructions ?Recorded ?Confirmed ?Last Taken ?Type vit C 250 mg-E 90 mg-zinc 40 1 tab PO BID 11/14/24 02/18/25 Unknown History mg-copper 1 yj-wnnbee-kxyfuf chew tablet (PreserVision AREDS-2) Exam Height,Weight and Vital Signs: Height 6 ft 2 in Weight 50.462 kg Last Vital Signs Temp 98.0 F 02/23/25 08:28 Pulse 64 02/23/25 08:28 Resp 20 02/23/25 08:28 BP 128/71 02/23/25 08:28 Pulse Ox 96 02/23/25 08:28 O2 Del Method Room Air 02/23/25 08:28 Airway Mallampati Class: II TM Dist: <=3cm Neck ROM: Full Loose/Missing/Broken Teeth: No Heart: ok Lungs: ok Assessment and Plan Assessment Anesthesia Assessment: Anesthesia Plan Discussed and Chart Reviewed Final Anesthetic Review Family History of Problems with Anesthesia: No History of Problems with Anesthesia: No NPO: Yes ASA Class: III and IV Final Preanesthetic Review: No Changes in Pt Med Stat, Meds/Allgs Chart Reviewed, Consent Obtained/Reviewed and Anes Risks/Benef Reviewed Patient Risk: High Procedure Risk: Low Anesthetic Plan Anesthetic Plan: GA and Agree w/ Assess. and Plan Disposition: Standard PACU
--- NOTE | 2025-02-23 09:15 | P.HPSUR_ITS ---
Pre-Procedural Eval Section A - 24 Hr Update-Section A only Date of Service: 02/23/25 The patient is an INPATIENT: No Changes since office visit: No Cold of Flu in the past 2 weeks, No New Medical Problems, No Changes in Medication and No Patient answered all questions The patient has been examined within 24 hours of the surgical procedure. The History & Physical has been completed within 30 days and I have reviewed it.: Yes Section B - Complete if H&P > 30 days Chief Complaint: Malignant neoplasm of bladder, unspecified Details of Present Illness: Cystoscopy, bladder biopsy, stent removal Relevant Social History: None Present Medications: see Short Stay Collaborative assessment Medical History: No relevant PMH History of Previous Operations: Relevant previous surgery/procedure and date(s) Allergies: Allergies Allergy/AdvReac Type Severity Reaction Status Date / Time nut - unspecified [NUTS] Allergy Severe ANAPHYLAXIS Verified 12/18/24 10:33 Review of Systems Sugical H&P ROS: Negative: Constitution, Cardiovascular, Respiratory, Neurological, Psychiatric, Hem-Onc, Allergic/Immunologic, Gastrointestinal, Genitourinary, Musculoskeletal, Integumentary, Endocrine and Eyes/Ear s/Nose/Throat Exam Surgical H&P Exam: Normal: HEENT, Normal: Heart, Normal: Lungs, Normal: Extremities, Normal: Abdomen, Normal: Skin and Normal: Neurological Plan Diagnosis/Plan: Unchanged (Cystoscopy, bladder biopsy, stent removal right) I have reviewed the history and physical and performed a pertinent physical examination on my patient. No changes have occurred unless specified. Time Spent With Patient Time: Total time managing care of this patient today ____ minutes.
--- NOTE | 2025-02-23 09:42 | P.OP_ITS ---
Operative Note Operative Note Date of Service: 02/23/25 Narrative: PreOperative Diagnosis: bladder cancer Post Operative Diagnosis: bladder cancer Procedure: cystoscopy, bladder biopsy, fulguration, removal left stent Surgeon: Dr Salomón Page Anesthesia: LMA Indications for procedure: Superficial bladder cancer. Here for cystoscopy, bladder biopsy restaging with left stent removal. Procedure: After informed consent was verified the patient was brought to the operating room and placed in a supine position. Anesthesia was administered per protocol. The patient was placed in modified dorsal lithotomy position and prepped and draped in a sterile fashion. Safety pause time-out was performed. Antibiotics being given. Cystoscopy was performed. Left stent seen emerging from left ureteric orifice. Stent grasped and removed without difficulty. Bladder biopsies taken from posterior wall. Three biopsies taken full- thickness. Left side biopsy was over area of inflammation. Fulguration performed on biopsy site Narrow band imaging used for bladder evaluation. No suspicious areas or lesions seen. The patient tolerated the procedure well. They were extubated in operating room and transferred in stable conditions recovery area. Pathology: Bladder biopsies Drains: None
== END 2025-02-23 10:47 | disposition home or self-care (01) ==
PROVIDERS: PCP Internal Medicine; Visit Provider Urology
PROC: (CPT 52204; principal; 2025-02-23 09:50)
DX: C67.9 Malignant neoplasm of bladder, unspecified (principal); I10 Essential (primary) hypertension; E78.5 Hyperlipidemia, unspecified; M10.9 Gout, unspecified; R79.89 Other specified abnormal findings of blood chemistry; Z95.0 Presence of cardiac pacemaker; Z79.51 Long term (current) use of inhaled steroids; Z79.899 Other long term (current) drug therapy; Z91.018 Allergy to other foods; Z98.890 Other specified postprocedural states; F17.290 Nicotine dependence, other tobacco product, uncomplicated
CPT/HCPCS: 52204; 88305; 88341; 88342; J2003; J2704; J3010

== ENCOUNTER → 2025-02-23 07:14 | Outpatient (BNV) | payer MEDICARE, OTHER, SELFPAY | PROVIDERS: PCP Internal Medicine; Visit Provider Urology | DX: C67.9 Malignant neoplasm of bladder, unspecified (principal) | CPT/HCPCS: 52204 ==

== ENCOUNTER 2025-03-11 14:27 | Outpatient (AMB) | payer MEDICARE, OTHER, SELFPAY ==
--- NOTE | 2025-03-11 14:28 | MHC.OFFVIS ---
Intake Visit Reasons: Bladder biopsy, follow up Intake Note: Patient is present for BLADDER BIOPSY F/U Urology Medication:ALLOPURINOL,TAMSULOSIN Antibiotic Allergy:NONE Blood Thinner:NONE Paediatric Physiotherapist Required: No Allergies nut - unspecified [NUTS] Allergy (Severe, Verified 03/11/25 14:28) ANAPHYLAXIS HPI Comments Details: Ricardo is a pleasant male. He is a patient of Dr. Self. He seen for the following urologic conditions - high-grade bladder cancer Telemedicine Evaluation 15 min Consultation [email or web address] [facility] Discussed bladder biopsy resolved Follow-up three-month office cysto with boost mitomycin-C plus cytarabine 03/15 repeat bladder biopsy negative Bladder cancer - high grade invasive - [id number] 09/14 Repeat TURBT 11/15 Bladder, biopsy: - High grade urothelial carcinoma; definitive invasion not seen; background acute and chronic cystitis. - Muscularis propria present Cystoscopy left sidewall bladder cancer 3 cm Initial evaluation for presentation with gross hematuria Prostate volume 50 cc 60 year pack per day smoking history Imaging - CT Urogram 07/15 Polypoid mass slightly hyperdense on precontrast imaging adherent to the left bladder wall measures 3.0 x 3.3 x 2.7 cm Initial Surgical specimen 10/14 Bladder, transurethral resection: High-grade papillary urothelial carcinoma, invasive into muscularis propria. Histologic type: Papillary urothelial carcinoma Histologic grade: High grade Muscularis propria: Present Extent of invasion: Muscularis propria Lymphovascular invasion: Not identified [facility] Medical History (Updated 03/11/25 @ 21:57 by Salomón Page MD) Hematuria Bladder mass NSVT (nonsustained ventricular tachycardia) RBBB (right bundle branch block) Bladder cancer BPH (benign prostatic hyperplasia) COPD (chronic obstructive pulmonary disease) Elevated LFTs Essential hypertension Normally functioning cardiac pacemaker present History of GI bleed Gout HTN (hypertension) Hyperlipidemia Surgical History (Updated 02/18/25 @ 13:57 by Lilliana Howard RN) H/O transurethral resection of bladder tumor (TURBT) History of surgical removal of pilonidal cyst History of esophagogastroduodenoscopy (EGD) History of permanent cardiac pacemaker placement (~01/2016) Family History Father No problems noted. Mother No problems noted. Social History Housing: House Are you a primary child care specialist to a significant other at home: No Do you presently have visiting nurse or other home services: No Alcohol intake: current Alcohol intake frequency: 0-2 drinks per day Patient Tobacco Use Status: Current someday Tobacco user Tobacco use type: Cigar Years Smoked: 20 e-Cigarette/Vaping Use: Never Used service: No Current occupational status: retired Current occupational exposures/hazards: No Cognitive needs: No Hearing needs: No Vision needs: Yes Review of Systems Const All systems reviewed & are unremarkable except as noted in HPI and below Reports no additional complaints Resp Reports no additional complaints GI Reports no additional complaints Reports as per HPI Musc Reports no additional complaints Physical Exam Telemedicine evaluation Appropriate responses Regular breathing rate and rhythm HEENT Head: Yes normal to inspection Ears: hearing grossly normal bilaterally Eyes General: appearance normal, both eyes and all related structures Neck Neck: Yes normal visual inspection Chest Chest palpation & inspection: normal inspection of the chest Resp Effort & Inspection: normal respiratory effort and able to speak in complete sentences Telehealth Telehealth Location of provider rendering services: practice address Location of patient: address on file Patient Identification confirmed using: Name, : Yes Telehealth method: voice only Patient verbally consented to treatment: Yes Patient verbally consented to billing insurance company: Yes Patient informed of any privacy concerns related to visit: Yes Assessment & Plan Assessment & Plan (1) Bladder cancer: Comment: - high-grade invasive s/p TURBT with mitomycin and cytarabine 09/08/2024 f/u with Dr. Page Code(s): C67.9 - Malignant neoplasm of bladder, unspecified Category: Medical Plan Three-month follow-up check cysto MRI pelvis to finish staging Orders: Orders MR pelvis wo/w con 3 Months C61 - Malignant neoplasm of prostate, C67.9 - Malignant neoplasm of bladder, unspecified Patient Instructions: This note is constructed using voice recognition software. While every effort has been made to ensure accuracy aquaculture director errors may have been included. Imaging studies, laboratory and physical exam results were discussed and reviewed in detail. No major barriers to patient understanding were identified. An opportunity to ask questions regarding the treatment plan was provided. All questions were answered. The patient expressed understanding and agreement with the above treatment plan. The patient is aware they should contact our office by phone for worsening of their current condition or the appearance of new urologic symptoms. Compliance is encouraged with any medications and followup testing that is ordered. It is a privilege to participate in the urologic care of your patient. If you have any questions or concerns regarding treatment for the above conditions, or other urologic issues, please do not hesitate to contact me. The office telephone contact is [phone]. Sincerely, Dr Salomón Page MD, [facility] - Urology Compassionate Specialist Care for the Genitourinary System Coding Level of Care Code Tele Est Pt Level 3 (42872) Complex EM visit Add On G2211 Diagnoses Bladder cancer C67.9
--- OUTSIDE RECORDS SUMMARY | 2025-03-11 14:42 | XMS_ITS | Clinical Summary ---
Author Organization 175 [facility] Address [address] [place] [address] Phone Care Team Providers Care Community Engagement Coordinator Name Role Phone Eden Self MD Primary Care Provider [phone] Allergies Active Allergy Reactions Criticality Noted Date [...] 10:45 AM EDT Office Visit Orthopedic Surgery [facility] [address] [phone] Eliecer Reza, DPM Hypertrophy of [...] Upcoming Encounters Date Type Department Care Team ([facility] st Contact Info) Description 03/26/2025 1:45 PM EDT Office Visit Orthopedic Surgery - [place] [address] [phone] Eliecer Reza, DPM [address] [address] Health Maintenance Due Date Last Done Comments [...] (2 - 2023-2 5 season) 2024 07/11/2022 Hypertension/CHF/CAD Annual BMP Blood Test 08/20/2024 Influenza Vaccine (Season Ended) 2025 DTaP,Tdap,and Td Vaccines (2 - Td or [...] age to complete this topic Insurance [facility] Care Teams Community Engagement Coordinator Relationship Specialty Start Date End Date Eden Self MD [address] [facility] [place] [phone] PCP - General 05/09/23
== END 2025-03-11 15:27 | disposition home or self-care (01) ==
LOC: HO.HUSH 14:27
PROVIDERS: PCP Internal Medicine; Visit Provider Urology
DX: C67.9 Malignant neoplasm of bladder, unspecified (principal)
CPT/HCPCS: 99213; G2211

== ENCOUNTER → 2025-03-11 14:27 | Outpatient (BNVA) | payer MEDICARE, OTHER, SELFPAY | PROVIDERS: PCP Internal Medicine; Visit Provider Urology ==

== ENCOUNTER 2025-04-14 09:25 | Outpatient (REF) | payer MEDICARE, OTHER, SELFPAY ==
[2025-04-14 09:39] LABS: MANUAL DIFF FLAG NO
[2025-04-14 09:47] LABS: Basophils Percent Auto 0.4 % (0-2); Eosinophils Absolute Auto 0.2 X10*3/uL (0.0-0.4); Eosinophils Percent Auto 3.5 % (0-4); Imm Gran Pct Auto 1.4 % (0.0-0.4); Lymphocytes Percent Auto 29.3 % (20-40); Mean Corpuscular HGB Conc 33.3 g/dl (31.0-36.0); Mean Corpuscular Hemoglobin 31.7 pg (27.0-33.0); Mean Platelet Volume 9.8 fL (9.4-12.4); Monocytes Absolute Auto 0.5 X10*3/uL (0.1-1.2); Monocytes Percent Auto 7.2 % (2-11); Neutrophils Percent Auto 58.2 % (45-73); Platelet Count 217 X10*3/uL (160-400); Red Blood Count 4.42 X10*6/uL (4.60-5.80); Red Cell Distribution Width 15.2 % (11.0-16.0); White Blood Count 6.9 X10*3/uL (4.8-10.8)
--- OUTSIDE RECORDS SUMMARY | 2025-04-14 10:07 | XMS_ITS | Clinical Summary ---
Author Organization 175 [facility] Address [address] [place] [address] Phone Care Team Providers Care Air Hoist Operator Name Role Phone Eden Self MD Primary Care Provider [phone] Allergies Active Allergy Reactions Criticality Noted Date [...] Encounters Date Type Department Care Team Description 03/26/2025 1:45 PM EDT Office Visit Orthopedic Surgery [facility] [address] [phone] Eliecer Reza, DPM Hypertrophy of [...] Upcoming Encounters Date Type Department Care Team ([facility] st Contact Info) Description 05/27/2025 10:00 AM EDT Office Visit Orthopedic Surgery - [place] [address] [phone] Eliecer Reza, DPM [address] [address] Health Maintenance Due Date Last Done Comments [...] age to complete this topic Insurance [facility] Care Teams Air Hoist Operator Relationship Specialty Start Date End Date Eden Self MD [address] [facility] [place] [phone] PCP - General 05/09/23
[2025-04-14 10:13] LABS: Alanine Aminotransferase 33 U/L (0-40); Albumin Level 3.8 g/dL (3.5-5.0); Alkaline Phosphatase 95 U/L (39-117); Anion Gap 12 (12-20); Aspartate Amino Transferase 31 U/L (5-37); Bilirubin Total 0.7 mg/dL (0.0-1.0); Blood Urea Nitrogen 19 mg/dL (9-16); Calcium 8.9 mg/dL (8.4-10.2); Carbon Dioxide 20 mmol/L (22-29); Chloride 111 mmol/L (96-108); Cholesterol 140 mg/dL (<200); Estimated Glomerular Filt Rate 47; Glucose Fasting 123 mg/dL (60-99); HDL Cholesterol 37 mg/dL (>40); Iron 81 mcg/dL (45-160); LDL Cholesterol Calculated 81 mg/dL (<100); Percent Iron Saturation 27 % (15-50); Potassium 4.6 mmol/L (3.3-5.1); Sodium 138 mmol/L (135-145); Total Iron Binding Capacity 296 mcg/dL (228-428); Total Protein 6.8 g/dL (6.5-8.0); Triglycerides 112 mg/dL (<150); Unsaturated Iron Binding 215 ug/dL
== END 2025-04-14 09:26 | disposition home or self-care (01) ==
LOC: HO.LAB 09:25
PROVIDERS: PCP Internal Medicine; Visit Provider Internal Medicine
DX: D64.9 Anemia, unspecified (principal); J44.9 Chronic obstructive pulmonary disease, unspecified; R06.09 Other forms of dyspnea; E78.5 Hyperlipidemia, unspecified; I10 Essential (primary) hypertension
CPT/HCPCS: 36415; 80053; 80061; 83540; 85025

== ENCOUNTER 2025-04-16 09:32 | Outpatient (AMB) | payer MEDICARE, OTHER, SELFPAY ==
[2025-04-16 09:34] VITALS: BP 100/58; PULSE 78; RESP 18; TEMP 36.8; O2SAT 96; BMI 31.5
--- NOTE | 2025-04-16 09:34 | A.OFFPC_ITS ---
Vital Signs 04/16/25 09:34 Height 6 ft 2 in Weight 245 lb BMI 31.5 BP 100/58 L Blood Pressure Location Lt brachial Position Sitting Respiration 18 Pulse 78 Pulse Source Pulse Oximeter Temp 98.2 F Temp Source Oral Pulse Oximetry (%) 96 Oxygen Delivery Method Room Air Intake Visit Reasons: 4m follow up Intake Note: Pt is here today for 4 months follow up visit. Allergies nut - unspecified (NUTS) Allergy (Severe, Verified 04/16/25 09:49) ANAPHYLAXIS Medication List - Last Reconciled 04/16/25 by Eden Self MD allopurinol 200 mg (2 x 100 mg) PO DAILY Breo Ellipta 100-25 mcg/dose (fluticasone furoate-vilanterol) 1 ea inhalation DAILY NS diltiazem HCl CD 120 mg PO DAILY simvastatin 5 mg PO BEDTIME tamsulosin 0.4 mg PO BEDTIME trimethoprim 100 mg PO DAILY 30 days vit C,C-Lj-gpqfo-lutein-zeaxan 250-90-40-1 mg (PreserVision AREDS-2) 1 tab PO BID Tobacco use date assessed: 04/16/25 Fall risk assessment: 1 Fall in past year Last assessed Fall Risk: 04/16/25 Dental Screening Dental Screen Date: 04/16/25 Did you have a dental visit in the last 12 months?: Yes Did you have a dental problem in the last 6 months where you did not have access to dental care?: No Was dental information given to patient?: Patient has dentist HPI 4m follow up HPI Details Patient presents for the follow-up hypertension hyperlipidemia stable on current medications. Patient reports throat irritation from using Breo. He denies cough or wheezing, PND orthopnea. patient has been less physically active in the last few months, sleeping more than usual spending lot of time during the day watching TV. Patient reports feeling generally tired, having low energy and low interest in his hobbies. He denies depression or suicide ideation. Patient is undergoing treatment for bladder cancer [facility] Medical History Hematuria Bladder mass NSVT (nonsustained ventricular tachycardia) RBBB (right bundle branch block) Bladder cancer BPH (benign prostatic hyperplasia) COPD (chronic obstructive pulmonary disease) Elevated LFTs Essential hypertension Normally functioning cardiac pacemaker present History of GI bleed Gout HTN (hypertension) Hyperlipidemia Surgical History H/O transurethral resection of bladder tumor (TURBT) History of surgical removal of pilonidal cyst History of esophagogastroduodenoscopy (EGD) History of permanent cardiac pacemaker placement (~01/2016) Family History Father No problems noted. Mother No problems noted. Social History Housing: House Are you a primary body care manager to a significant other at home: No Do you presently have visiting nurse or other home services: No Alcohol intake: current Alcohol intake frequency: 0-2 drinks per day Patient Tobacco Use Status: Current someday Tobacco user Tobacco use type: Cigar Years Smoked: 20 e-Cigarette/Vaping Use: Never Used service: No Current occupational status: retired Current occupational exposures/hazards: No Cognitive needs: No Hearing needs: No Vision needs: Yes Questionnaire Thrive Questionnaire Date Thrive assessed: 11/14/24 I am a: Parent/Caregiver What is your living situation today?: I have a steady place to live Within the past 12 months, did the food you bought not last and you didn't have the money to get more?: Never true Within the past 12 months, did you worry whether your food would run out before you got money to buy more?: Never true Do you have trouble paying for medicines?: No Do you have trouble getting transportation to medical appointments?: No Do you have trouble paying your heating and electricity bill?: I choose not to answer this question Do you have trouble taking care of your child, family member or friend?: No Do you have trouble with day-to-day activities such as bathing, preparing meals, shopping, managing finances, etc.?: Yes Are you currently unemployed and looking for a job?: No Are you interested in more education?: No Please select the resources that you would like help with: None Currently or been in a relationship where the following occur: No concerns reported THRIVE Score: 0 HARDIK-7 AMB Questionnaire HARDIK-7 Date HARDKI - 7 assessed: 11/14/24 Source: Developed by Mindy Russell.W. Anton, Trent Soria and colleagues, with an educational carrie from [employer]. Review of Systems Const All systems reviewed & are unremarkable except as noted in HPI and below Eyes Reports no additional complaints ENT Reports no additional complaints Card Reports no additional complaints Resp Reports no additional complaints GI Reports no additional complaints Reports no additional complaints Physical exam (Primary Care) Vital Signs: Last Vital Signs Temp 98.2 F 04/16/25 09:34 Pulse 78 04/16/25 09:34 Resp 18 04/16/25 09:34 BP 100/58 L 04/16/25 09:34 Pulse Ox 96 04/16/25 09:34 Oxygen Delivery Method Room Air 04/16/25 09:34 BMI result Body Mass Index 31.5 Tobacco/Smoking Status: Tobacco use Status Tobacco use date assessed 04/16/25 04/16/25 09:36 Patient Tobacco Use Status Current someday Tobacco 04/16/25 09:36 Tobacco use type Cigar 04/16/25 09:36 e-Cigarette/Vaping Use Never Used 04/16/25 09:36 Thrive Assessment: Date of Thrive Assessment Date Thrive assessed 11/14/24 04/16/25 09:36 Currently or been in a relationship where the following occur: No concerns reported Const General: no acute distress HENMT Head: Yes normal to inspection Neck Neck: Yes supple Resp Effort & Inspection: normal respiratory effort Auscultation: diminished lung sounds Cardio Rhythm: regular rhythm Heart sounds: S1 normal heart sound present and S2 normal heart sound present GI Inspection: Yes normal to inspection Palpation (GI): Soft to palpation Auscultation: normal bowel sounds Neuro Cranial nerves: Yes CN's II-XII intact bilaterally Gait exam (Neuro): Normal gait present Motor exam (neuro): 5/5 motor strength present throughout Romberg Test: Negative Coding Level of Care Code Est Pt Level 4 (24041) Complex EM visit Add On G2211 Diagnoses Bradycardia R00.1 Poor balance R26.89 Essential hypertension I10 Fatigue R53.83 Hyperlipidemia E78.5 LONGORIA (dyspnea on exertion) R06.09 Bladder cancer C67.9 Assessment & Plan Assessment & Plan (1) Bradycardia: Comment: s/p pacemaker Code(s): R00.1 - Bradycardia, unspecified Category: Medical Plan: For tachy/valentin patient has been taking diltiazem for rate control and follows up with Cardiology (2) Poor balance: Code(s): R26.89 - Other abnormalities of gait and mobility Category: Medical Plan: Refer to physical therapy follow extremity weakness and poor balance (3) Essential hypertension: Code(s): I10 - Essential (primary) hypertension Category: Medical Plan: Continue diltiazem (4) Fatigue: Comment: Negative nuclear stress test February 2024 Code(s): R53.83 - Other fatigue Category: Medical Plan: For general deconditioning patient will be referred to physical therapy and was advised to start regular exercise program 10-15 minutes daily. He will follow- up in 2 months (5) Hyperlipidemia: Code(s): E78.5 - Hyperlipidemia, unspecified Category: Medical Plan: continue statin (6) LONGORIA (dyspnea on exertion): Comment: Echocardiogram 02/2024 nl EF, mild ,Echo 12/2024 unchanged, PFT no obstructive or restrictive ventilatory defect, 02/2025 Code(s): R06.09 - Other forms of dyspnea Category: Medical Plan: Most likely due to deconditioning and abdominal obesity. Patient was advised to increase physical activity decrease caloric intake and weight loss. Patient was advised to stop Breo (7) Bladder cancer: Comment: - high-grade invasive s/p TURBT with mitomycin and cytarabine 09/08/2024 f/u with Dr. Page Code(s): C67.9 - Malignant neoplasm of bladder, unspecified Category: Medical Plan: Follow-up with urology Orders: Orders PT Evaluation and Treatment Today R26.89 - Other abnormalities of gait and mobility Medications: Discontinued Breo Ellipta 100-25 mcg/dose (fluticasone furoate-vilanterol) Discontinued Reason: Doctor's Order 1 ea inhalation DAILY 180 ea 1RF NS
--- OUTSIDE RECORDS SUMMARY | 2025-04-16 10:35 | XMS_ITS | Clinical Summary ---
Author Organization 175 [facility] Address 175 [place] [address] Phone Care Team Providers Care Boat Puller Name Role Phone Eden Self MD Primary Care Provider [phone] Allergies Active Allergy Reactions Criticality Noted Date [...] 1:45 PM EDT Office Visit Orthopedic Surgery [facility] [address] [address] Eliecer Reza, DPM Hypertrophy of [...] Upcoming Encounters Date Type Department Care Team ([facility] st Contact Info) Description 05/27/2025 10:00 AM EDT Office Visit Orthopedic Surgery - [place] [address] [phone] Eliecer Reza, DPM [address] [address] Health Maintenance Due Date Last Done Comments [...] patient's age to complete this topic Insurance [facility] Care Teams Boat Puller Relationship Specialty Start Date End Date Eden Self MD [address] [facility] [place] [phone] PCP - General 05/09/23
== END 2025-04-16 10:52 | disposition home or self-care (01) ==
LOC: HO.HMCC 09:33
PROVIDERS: PCP Internal Medicine; Visit Provider Internal Medicine
DX: R00.1 Bradycardia, unspecified (principal); C67.9 Malignant neoplasm of bladder, unspecified; R26.89 Other abnormalities of gait and mobility; I10 Essential (primary) hypertension; R53.83 Other fatigue; E78.5 Hyperlipidemia, unspecified; R06.09 Other forms of dyspnea

== ENCOUNTER → 2025-04-16 09:32 | Outpatient (BNVA) | payer MEDICARE, OTHER, SELFPAY | PROVIDERS: PCP Internal Medicine; Visit Provider Internal Medicine | DX: R00.1 Bradycardia, unspecified (principal); R26.89 Other abnormalities of gait and mobility; R53.83 Other fatigue; R78.5 Finding of other psychotropic drug in blood; I10 Essential (primary) hypertension; R06.09 Other forms of dyspnea; C67.9 Malignant neoplasm of bladder, unspecified | CPT/HCPCS: 99212 ==

== ENCOUNTER 2025-05-11 08:49 | Outpatient (REF) | payer MEDICARE, OTHER, SELFPAY ==
--- OUTSIDE RECORDS SUMMARY | 2025-05-11 08:57 | XMS_ITS | Clinical Summary ---
Author Organization 175 [facility] Address [address] [place] [address] Phone Care Team Providers Care Almond Blancher Operator Name Role Phone Eden Self MD Primary Care Provider [phone] Allergies Active Allergy Reactions Criticality Noted Date [...] PM EDT Office Visit Orthopedic Surgery [facility] [address] [address] Eliecer Reza, DPM Hypertrophy of [...] Upcoming Encounters Date Type Department Care Team ([facility] st Contact Info) Description 05/27/2025 10:00 AM EDT Office Visit Orthopedic Surgery - [place] [address] [address] Eliecer Reza, DPM [address] [address] Health Maintenance Due Date Last Done Comments Pneumococcal Vaccine: 50+ Ye ars (1 of 1 - PCV) 1990 Zoster Vaccines (1 of 2) 1990 RSV Immunization Adult Patie nts (1 - 1-dose 75+ series) 2015 Cholesterol Screening (Lipid Panel) 11/16/2023 Falls Risk Assessment 11/16/2023 Medicare Annual Wellness Visit 11/16/2023 Social Influencers of Health Screening 11/16/2023 COVID-19 Vaccine (2 - 2023-2 5 season) 2024 07/11/2022 Hypertension/CHF/CAD Annual BMP Blood Test 08/20/2024 Depression Screening 10/22/2024 Influenza Vaccine (#1) 2025 DTaP,Tdap,and Td Vaccines (2 - Td [...] patient's age to complete this topic Insurance [facility] Care Teams Almond Blancher Operator Relationship Specialty Start Date End Date Eden Self MD [address] [facility] [place] [phone] PCP - General 05/09/23
[2025-05-11 09:05] LABS: MANUAL DIFF FLAG NO
[2025-05-11 10:07] LABS: Hematocrit 42.3 % (42.0-52.0); Hemoglobin 14.3 g/dl (14.0-18.0); Imm Gran Abs Auto 0.06 X10*3/uL (0.00-0.03); Imm Gran Pct Auto 0.9 % (0.0-0.4); Lymphocytes Absolute Auto 1.7 X10*3/uL (1.2-4.9); Mean Corpuscular HGB Conc 33.8 g/dl (31.0-36.0); Mean Corpuscular Hemoglobin 32.6 pg (27.0-33.0); Mean Corpuscular Volume 96.6 fL (80.0-98.0); NRBC Abs Auto 0.000 X10*3/uL (0.0-0.012); NRBC Pct Auto 0.0 /100WBC (0.0-0.2); Platelet Count 200 X10*3/uL (160-400); Red Blood Count 4.38 X10*6/uL (4.60-5.80); White Blood Count 6.4 X10*3/uL (4.8-10.8)
== END 2025-05-11 08:50 | disposition home or self-care (01) ==
LOC: HO.LAB 08:49
PROVIDERS: PCP Internal Medicine; Visit Provider Internal Medicine
DX: I10 Essential (primary) hypertension (principal); R06.09 Other forms of dyspnea; E78.5 Hyperlipidemia, unspecified
CPT/HCPCS: 36415; 85025

== ENCOUNTER 2025-05-14 11:13 | Outpatient (AMB) | payer MEDICARE, OTHER, SELFPAY ==
--- NOTE | 2025-05-14 11:24 | MHC.PC.OV ---
Vital Signs 05/14/25 11:25 Height 6 ft 2 in Weight 247 lb BMI 31.7 BP 110/70 Blood Pressure Location Lt brachial Position Sitting Respiration 18 Pulse 75 Pulse Source Pulse Oximeter Temp 98.4 F Temp Source Oral Pulse Oximetry (%) 96 Oxygen Delivery Method Room Air Intake Visit Reasons: Annual PE Intake Note: Pt is here today for PE. Allergies nut - unspecified (NUTS) Allergy (Severe, Verified 05/14/25 11:45) ANAPHYLAXIS Medication List - Last Reconciled 05/14/25 by Eden Self MD allopurinol 200 mg (2 x 100 mg) PO DAILY diltiazem HCl CD 120 mg PO DAILY simvastatin 5 mg PO BEDTIME tamsulosin 0.4 mg PO BEDTIME trimethoprim 100 mg PO DAILY 30 days vit C,W-Fe-xyisf-lutein-zeaxan 250-90-40-1 mg (PreserVision AREDS-2) 1 tab PO BID Tobacco use date assessed: 05/14/25 Fall risk assessment: 1 Fall in past year Last assessed Fall Risk: 05/14/25 Dental Screening Dental Screen Date: 04/16/25 HPI Annual PE HPI Details Pt presents for PE. He started exercising at [employer] 3 times a week on stationary bike for at least 15 minutes and is feeling stronger with improved balance. [facility] Medical History (Updated 05/14/25 @ 14:52 by Eden Self MD) Hematuria Bladder mass NSVT (nonsustained ventricular tachycardia) RBBB (right bundle branch block) Bladder cancer BPH (benign prostatic hyperplasia) Elevated LFTs Essential hypertension Normally functioning cardiac pacemaker present History of GI bleed Gout HTN (hypertension) Hyperlipidemia Surgical History H/O transurethral resection of bladder tumor (TURBT) History of surgical removal of pilonidal cyst History of esophagogastroduodenoscopy (EGD) History of permanent cardiac pacemaker placement (~01/2016) Family History Father No problems noted. Mother No problems noted. Social History Housing: House Are you a primary landcare officer to a significant other at home: No Do you presently have visiting nurse or other home services: No Alcohol intake: current Alcohol intake frequency: 0-2 drinks per day Patient Tobacco Use Status: Current someday Tobacco user Tobacco use type: Cigar Years Smoked: 20 e-Cigarette/Vaping Use: Never Used service: No Current occupational status: retired Current occupational exposures/hazards: No Cognitive needs: No Hearing needs: No Vision needs: Yes Questionnaire Thrive Questionnaire Date Thrive assessed: 11/14/24 I am a: Parent/Caregiver What is your living situation today?: I have a steady place to live Within the past 12 months, did the food you bought not last and you didn't have the money to get more?: Never true Within the past 12 months, did you worry whether your food would run out before you got money to buy more?: Never true Do you have trouble paying for medicines?: No Do you have trouble getting transportation to medical appointments?: No Do you have trouble paying your heating and electricity bill?: I choose not to answer this question Do you have trouble taking care of your child, family member or friend?: No Do you have trouble with day-to-day activities such as bathing, preparing meals, shopping, managing finances, etc.?: Yes Are you currently unemployed and looking for a job?: No Are you interested in more education?: No Please select the resources that you would like help with: None Currently or been in a relationship where the following occur: No concerns reported THRIVE Score: 0 HARDIK-7 AMB Questionnaire HARDIK-7 Date HARDIK - 7 assessed: 11/14/24 Source: Developed by Drs. Pancho Diop, Mindy Walton, Trent Soria and colleagues, with an educational carrie from [employer]. Review of Systems Const All systems reviewed & are unremarkable except as noted in HPI and below Eyes Reports no additional complaints ENT Reports no additional complaints Card Reports no additional complaints Resp Reports no additional complaints GI Reports no additional complaints Reports no additional complaints Physical exam (Primary Care) Vital Signs: Last Vital Signs Temp 98.4 F 05/14/25 11:25 Pulse 75 05/14/25 11:25 Resp 18 05/14/25 11:25 BP 110/70 05/14/25 11:25 Pulse Ox 96 05/14/25 11:25 Oxygen Delivery Method Room Air 05/14/25 11:25 BMI result Body Mass Index 31.7 Tobacco/Smoking Status: Tobacco use Status Tobacco use date assessed 05/14/25 05/14/25 11:49 Patient Tobacco Use Status Current someday Tobacco 05/14/25 11:28 Tobacco use type Cigar 05/14/25 11:28 e-Cigarette/Vaping Use Never Used 05/14/25 11:28 Thrive Assessment: Date of Thrive Assessment Date Thrive assessed 11/14/24 05/14/25 11:28 Currently or been in a relationship where the following occur: No concerns reported Const General: no acute distress HENMT Head: Yes normal to inspection Face and sinus: Yes normal facial exam Throat: Yes posterior oropharynx normal Eyes General: appearance normal, both eyes and all related structures Neck Neck: Yes no lymphadenopathy and Yes supple Resp Effort & Inspection: normal respiratory effort Auscultation: clear to auscultation bilaterally Cardio Rhythm: regular rhythm Heart sounds: S1 normal heart sound present and S2 normal heart sound present GI Inspection: Yes normal to inspection Palpation (GI): Soft to palpation Percussion: Yes normal to percussion Auscultation: normal bowel sounds Coding Level of Care Code Est Pt Prev Care >65y(72045) Diagnoses Essential hypertension I10 NSVT (nonsustained ventricular tachycardia) I47.29 Hyperlipidemia E78.5 Bladder cancer C67.9 Annual physical exam Z00.00 Assessment & Plan Assessment & Plan (1) Essential hypertension: Code(s): I10 - Essential (primary) hypertension Category: Medical Plan: Continue current medications (2) NSVT (nonsustained ventricular tachycardia): Comment: has pacemaker-follows w/[facility], on Cardizem Code(s): I47.29 - Other ventricular tachycardia Category: Medical Plan: Continue Cardizem follow-up with Cardiology (3) Hyperlipidemia: Code(s): E78.5 - Hyperlipidemia, unspecified Category: Medical Plan: Continue statin (4) Bladder cancer: Comment: - high-grade invasive s/p TURBT with mitomycin and cytarabine 09/08/2024 f/u with Dr. Page Code(s): C67.9 - Malignant neoplasm of bladder, unspecified Category: Medical Plan: Follow-up with urology (5) Annual physical exam: Code(s): Z00.00 - Encounter for general adult medical examination without abnormal findings Category: Medical Plan: Well-balanced diet regular physical activity discussed with the patient. He was advised to continue regular exercise decrease caloric intake and lose weight. Follow-up in 3 months Orders: Orders Comprehensive [place]. Panel Fast 3 Months I10 - Essential (primary) hypertension, I47.29 - Other ventricular tachycardia, R73.9 - Hyperglycemia, unspecified Lipid Panel 3 Months I10 - Essential (primary) hypertension, I47.29 - Other ventricular tachycardia, R73.9 - Hyperglycemia, unspecified Complete Blood Count Auto Diff 3 Months I10 - Essential (primary) hypertension, I47.29 - Other ventricular tachycardia, R73.9 - Hyperglycemia, unspecified Hemoglobin A1c 3 Months I10 - Essential (primary) hypertension, I47.29 - Other ventricular tachycardia, R73.9 - Hyperglycemia, unspecified
[2025-05-14 11:25] VITALS: BP 110/70; PULSE 75; RESP 18; TEMP 36.9; O2SAT 96; BMI 31.7
--- OUTSIDE RECORDS SUMMARY | 2025-05-14 12:07 | XMS_ITS | Clinical Summary ---
Author Organization 175 [facility] Address 175 [place] [address] Phone Care Team Providers Care Ophthalmic Tech Name Role Phone Eden Self MD Primary Care Provider [phone] Allergies Active Allergy Reactions Criticality Noted Date [...] 1:45 PM EDT Office Visit Orthopedic Surgery [facility] [address] [address] Eliecer Reza, DPM Hypertrophy of [...] Upcoming Encounters Date Type Department Care Team ([facility] st Contact Info) Description 05/27/2025 10:00 AM EDT Office Visit Orthopedic Surgery - [place] [address] [address] Eliceer Reza, DPM [address] [address] Health Maintenance Due Date Last Done Comments [...] age to complete this topic Insurance [facility] Care Teams Ophthalmic Tech Relationship Specialty Start Date End Date Eden Self MD [address] [facility] [place] [phone] PCP - General 05/09/23
== END 2025-05-14 12:37 | disposition home or self-care (01) ==
LOC: HO.HMCC 11:13
PROVIDERS: PCP Internal Medicine; Visit Provider Internal Medicine
DX: Z00.00 Encounter for general adult medical examination without abnormal findings (principal); I47.29 Other ventricular tachycardia; C67.9 Malignant neoplasm of bladder, unspecified; I10 Essential (primary) hypertension; E78.5 Hyperlipidemia, unspecified

== ENCOUNTER → 2025-05-14 11:13 | Outpatient (BNVA) | payer MEDICARE, OTHER, SELFPAY | PROVIDERS: PCP Internal Medicine; Visit Provider Internal Medicine | DX: Z00.00 Encounter for general adult medical examination without abnormal findings (principal); I10 Essential (primary) hypertension; I47.20 Ventricular tachycardia, unspecified; E78.5 Hyperlipidemia, unspecified; C67.9 Malignant neoplasm of bladder, unspecified | CPT/HCPCS: 99397 ==

== ENCOUNTER → 2025-05-20 23:59 | Outpatient (BNV) | payer MEDICARE, OTHER, SELFPAY ==
--- NOTE | 2025-05-24 09:56 | MHC.OFFVIS ---
Intake Visit Reasons: Remote device check-[facility] Allergies nut - unspecified (NUTS) Allergy (Severe, Verified 05/14/25 11:45) ANAPHYLAXIS [facility] Medical History (Updated 05/14/25 @ 14:52 by Eden Self MD) Hematuria Bladder mass NSVT (nonsustained ventricular tachycardia) RBBB (right bundle branch block) Bladder cancer BPH (benign prostatic hyperplasia) Elevated LFTs Essential hypertension Normally functioning cardiac pacemaker present History of GI bleed Gout HTN (hypertension) Hyperlipidemia Surgical History H/O transurethral resection of bladder tumor (TURBT) History of surgical removal of pilonidal cyst History of esophagogastroduodenoscopy (EGD) History of permanent cardiac pacemaker placement (~01/2016) Family History Father No problems noted. Mother No problems noted. Social History Housing: House Are you a primary director critical care to a significant other at home: No Do you presently have visiting nurse or other home services: No Alcohol intake: current Alcohol intake frequency: 0-2 drinks per day Patient Tobacco Use Status: Current someday Tobacco user Tobacco use type: Cigar Years Smoked: 20 e-Cigarette/Vaping Use: Never Used service: No Current occupational status: retired Current occupational exposures/hazards: No Cognitive needs: No Hearing needs: No Vision needs: Yes Office Procedures Cardiac Device Check Cardiac Device Check Details: Date of service- 05/20/2025 ; Battery life 1.6 years; normal lead parameters; AP 30%; GEOTHERMAL INSTALLER 56%; brief atrial tachycardia, otherwise, no significant arrhythmias. Overall normal device function. [id number] Cardiac Device Interrogation, pacemaker Procedure code (CPT) selection complete Assessment & Plan Assessment & Plan (1) Encounter for interrogation of cardiac pacemaker: Comment: 2015, Code(s): Z45.018 - Encounter for adjustment and management of other part of cardiac pacemaker Category: Medical (2) Heart block: Comment: pacemaker 2015 Code(s): I45.9 - Conduction disorder, unspecified Category: Medical Plan x Coding Level of Care Code Procedure Only Diagnoses Encounter for interrogation of cardiac pacemaker Z45.018 Heart block I45.9 CPT Codes Cardiac Device Check - Cardiac Device 12: [id number] Cardiac Device Interrogation, pacemaker ([id number])
== END ==
PROVIDERS: PCP Internal Medicine; Visit Provider Internal Medicine
DX: I45.9 Conduction disorder, unspecified (principal); Z95.0 Presence of cardiac pacemaker
CPT/HCPCS: 93294

== ENCOUNTER 2025-05-25 13:43 | Outpatient (AMB) | payer MEDICARE, OTHER, SELFPAY ==
--- OUTSIDE RECORDS SUMMARY | 2025-05-25 13:55 | XMS_ITS | Clinical Summary ---
Author Organization 175 [facility] Address 175 [place] [address] Phone Care Team Providers Care Master Merchandiser Name Role Phone Eden Self MD Primary Care Provider [phone] Allergies Active Allergy Reactions Criticality Noted Date [...] 1:45 PM EDT Office Visit Orthopedic Surgery [facility] [address] [address] Eliecer Reza, DPM Hypertrophy [...] Care Team (Late st Contact Info) Description 05/27/2025 10:00 AM EDT Office Visit Orthopedic Surgery - [place] [address] [phone] Eliecer Reza, DPM [address] [address] Health Maintenance Due Date Last Done Comments [...] to complete this topic Insurance [facility] [address] [place] [address] Care Teams Master Merchandiser Relationship Specialty Start Date End Date Eden Self MD 262 [facility] [place] [address] PCP - General 05/09/23
[2025-05-25 14:24] VITALS: BP 126/70; PULSE 67; BMI 31.1
--- NOTE | 2025-05-25 14:24 | MHC.OFFVIS ---
Vital Signs 05/25/25 14:24 Height 6 ft 2 in Weight 242 lb 8.136 oz BMI 31.1 BP 126/70 Blood Pressure Location Lt brachial Position Sitting Pulse 67 Pulse Source Pulse Oximeter Intake Visit Reasons: 6m follow up w device ck Allergies nut - unspecified (NUTS) Allergy (Severe, Verified 05/14/25 11:45) ANAPHYLAXIS Medication List - Last Reconciled 05/25/25 by Victorino Uriostegui MD allopurinol 200 mg (2 x 100 mg) PO DAILY diltiazem HCl CD 120 mg PO DAILY simvastatin 5 mg PO BEDTIME tamsulosin 0.4 mg PO BEDTIME trimethoprim 100 mg PO DAILY 30 days vit C,S-Yg-rrobl-lutein-zeaxan 250-90-40-1 mg (PreserVision AREDS-2) 1 tab PO BID HPI Comments Details: Ricardo returns for follow-up. To recall, several years ago he underwent workup for syncope. 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 Overall, he states he feels well. No cardiac symptoms whatsoever. Getting along fine. He is getting treatment for bladder cancer. [facility] Medical History (Updated 05/14/25 @ 14:52 by Eden Self MD) Hematuria Bladder mass NSVT (nonsustained ventricular tachycardia) RBBB (right bundle branch block) Bladder cancer BPH (benign prostatic hyperplasia) Elevated LFTs Essential hypertension Normally functioning cardiac pacemaker present History of GI bleed Gout HTN (hypertension) Hyperlipidemia Surgical History H/O transurethral resection of bladder tumor (TURBT) History of surgical removal of pilonidal cyst History of esophagogastroduodenoscopy (EGD) History of permanent cardiac pacemaker placement (~01/2016) Family History Father No problems noted. Mother No problems noted. Social History Housing: House Are you a primary healthcare recruiter to a significant other at home: No Do you presently have visiting nurse or other home services: No Alcohol intake: current Alcohol intake frequency: 0-2 drinks per day Patient Tobacco Use Status: Current someday Tobacco user Tobacco use type: Cigar Years Smoked: 20 e-Cigarette/Vaping Use: Never Used service: No Current occupational status: retired Current occupational exposures/hazards: No Cognitive needs: No Hearing needs: No Vision needs: Yes Review of Systems Const Denies weakness ENT Denies dizziness Card Denies chest pain, Denies chest pain with activity, Denies syncope, Denies rapid heart rate, Denies pedal edema, Denies edema, Denies leg edema, Denies lightheadedness, Denies palpitations, Denies dyspnea, Denies dyspnea on exertion and Denies orthopnea Resp Denies cough, Denies dyspnea and Denies dyspnea on exertion GI Denies hematochezia and Denies change in stool character Musc Denies abnormal gait, Denies muscle cramps, Denies muscle weakness, Denies numbness, Denies radiating pain into limb and Denies tingling Neuro Denies abnormal gait, Denies dizziness, Denies syncope, Denies numbness, Denies tingling and Denies weakness Endo Denies palpitations Physical Exam Vital Signs: Last Vital Signs Pulse 67 05/25/25 14:24 BP 126/70 05/25/25 14:24 BMI result Body Mass Index 31.1 Const General: comfortable and no acute distress Orientation/consciousness: patient oriented x3 HEENT Other: Unremarkable Head: Yes normal to inspection Neck Neck: Yes normal visual inspection Chest Chest palpation & inspection: normal inspection of the chest Resp Auscultation: clear to auscultation bilaterally Cardio Palpation: normal PMI Heart sounds: S1 normal heart sound present, S2 normal heart sound present, no gallops, no murmurs and no rubs GI Palpation (GI): Soft to palpation Back/Spine/Pelvis Other: unremarkable Skin General skin exam: no rashes or lesions noted Neuro General: patient oriented x3 Extrem General: Yes normal to inspection Psych Mental Status: mental status grossly normal Office Procedures Cardiac Device Check Cardiac Device Check Details: Pacemaker interrogated today. Dual-chamber device, programmed DDDR. Battery status 1.6 years. Normal lead parameters. Atrial pacing 58%. Ventricular pacing 51%. No arrhythmias of significance. Overall, normal device function. [id number] Cardiac Device Check, pacemaker dual lead Procedure code (CPT) selection complete Assessment & Plan Assessment & Plan (1) Nonrheumatic aortic (valve) stenosis: Comment: mild Echo 07/2024 Code(s): I35.0 - Nonrheumatic aortic (valve) stenosis Category: Medical Plan: Mild aortic stenosis on the echocardiogram. We can follow this on clinical exam and by echocardiogram. (2) Essential hypertension: Code(s): I10 - Essential (primary) hypertension Category: Medical Plan: Has been on lisinopril in the past but not anymore. Blood pressure seems stable. (3) Normally functioning cardiac pacemaker present: Code(s): Z95.0 - Presence of cardiac pacemaker Category: Medical Plan: Normal function. Follow remotely. Coding Level of Care Code Est Pt Level 3 (96394) Diagnoses Nonrheumatic aortic (valve) stenosis I35.0 Essential hypertension I10 Normally functioning cardiac pacemaker present Z95.0 CPT Codes Cardiac Device Check - Cardiac Device 2: [id number] Cardiac Device Check, pacemaker dual lead ([id number])
== END 2025-05-25 14:47 | disposition home or self-care (01) ==
LOC: HO.HCS 13:44
PROVIDERS: PCP Internal Medicine; Visit Provider Internal Medicine
DX: I35.0 Nonrheumatic aortic (valve) stenosis (principal); I10 Essential (primary) hypertension; Z95.0 Presence of cardiac pacemaker
CPT/HCPCS: 93280; 99213

== ENCOUNTER → 2025-05-25 13:43 | Outpatient (BNVA) | payer MEDICARE, OTHER, SELFPAY | PROVIDERS: PCP Internal Medicine; Visit Provider Internal Medicine | DX: Z45.018 Encounter for adjustment and management of other part of cardiac pacemaker (principal); I35.0 Nonrheumatic aortic (valve) stenosis; I10 Essential (primary) hypertension | CPT/HCPCS: 93280; 99212 ==

== ENCOUNTER 2025-06-08 15:00 | Outpatient (RCR) | payer MEDICARE, OTHER, SELFPAY ==
--- NOTE | 2025-05-08 14:55 | MHC.PT.EP ---
[facility] Office [place] Office [place] Office [address] [place] Arevalo [address] [phone] F: [phone] F: [phone] F: [phone] F: [phone] Physical Therapy Plan of Care Date of Evaluation: 05/08/25 Date of Surgery: N/A Diagnosis: poor balance, lower extremity weakness (RL) Assessment: pt is an 84 y/o male presenting to physical therapy w/ referring diagnosis of poor balance, lower extremity weakness. Impairments include pain, decreased range of motion, decreased strength, impaired functional mobility, impaired postural awareness, and altered ambulation mechanics. pt is a good candidate for skilled PT due to age, potential remediation of impairments, typical disease/condition progression and prognosis, comorbidities, and motivation. pt would benefit from skilled PT intervention to provide a tailored strengthening and stretching exercise program, functional training, gait training, postural re-training, neuromuscular re-education, modalities as needed for pain, equipment safety demonstration. Frequency and Duration: The patient will be seen 2x/wk for 4 wks Short Term Goals: pt will be I w/ HEP to promote self-management of condition. pt will perform sit<>stand transfer w/o UE assist within x3 attempts. Finance Mgr Goals: pt will report a statistically significant improvement in self-reported outcome measure, LEFI, to promote return to PLOF. pt will improve TUG and 30 second sit to stand tests to graduate out of fall risk category. Treatment Plan: Modalities to reduce pain, spasms and effusion. Manual therapy to restore motion and function. Therapeutic exercise to improve strength and flexibility. Neuromuscular re-education for posture and balance. Therapeutic activities to return to functional activities of daily living. Electronically signed by: Keeley Moon PT, DPT Please sign and return to therapist. Thank you for your referral.
--- NOTE | 2025-06-08 17:04 | MHC.PT.DC ---
[facility] Office [place] Office [place] Office [address] [place] Arevalo [address] [phone] F: [phone] F: [phone] F: [phone] F: [phone] Physical Therapy Discharge Report Diagnosis: poor balance, lower extremity weakness (RL) Date of Surgery: N/A Date of Evaluation: 05/08/25 Date of Discharge: 06/08/25 Treatments to Date: 9 Cancellations to Date: 1 No Shows to Date: 0 Discharge Status: Improved Function Independent with HEP Discharge Summary: The patient overall has made improvements regarding his strength, proactive and reactive balance and functional mobility. He is independent with his home exercise program and was encouraged to continue with them to maintain the progress he made here in PT. Educated the patient on safe progression of cardiovascular exercise as well. The patient is discharged from this physical therapy plan of care. Electronically signed by: Keeley Moon PT, DPT Please sign and return to therapist. Thank you for your referral.
== END 2025-06-08 17:05 | disposition home or self-care (01) ==
LOC: HO.PT 15:00
PROVIDERS: PCP Internal Medicine; Visit Provider Internal Medicine
DX: R53.1 Weakness (principal); R26.89 Other abnormalities of gait and mobility; R29.898 Other symptoms and signs involving the musculoskeletal system
CPT/HCPCS: 97110; 97112; 97162

== ENCOUNTER 2025-06-11 10:44 | Outpatient (REF) | payer MEDICARE, OTHER, SELFPAY | END 2025-06-11 10:45 | disposition home or self-care (01) | LOC: HO.LNP 10:44 | PROVIDERS: PCP Internal Medicine; Visit Provider Urology | DX: N40.1 Benign prostatic hyperplasia with lower urinary tract symptoms (principal); C67.9 Malignant neoplasm of bladder, unspecified; N39.0 Urinary tract infection, site not specified; R33.8 Other retention of urine; N20.0 Calculus of kidney; Z13.89 Encounter for screening for other disorder | CPT/HCPCS: 52000; 81003; 88112 ==

== ENCOUNTER 2025-06-11 10:44 | Outpatient (AMB) | payer MEDICARE, OTHER, SELFPAY ==
--- NOTE | 2025-06-11 10:44 | A.OFFVIS_ITS ---
Intake Visit Reasons: cysto Intake Note: Patient is present for cystoscopy Urology Medication:ALLOPURINOL,TAMSULOSIN Antibiotic Allergy:NONE Blood Thinner:NONE Hvac Specialist Required: No Accompanied by: Self / Same As Patient Allergies nut - unspecified (NUTS) Allergy (Severe, Verified 06/11/25 10:45) ANAPHYLAXIS HPI Comments Details: Ricardo is a pleasant male. He is a patient of Dr. Self. He seen for the following urologic conditions - high-grade bladder cancer - lower urinary tract symptoms weakness of stream Follow-up check cystoscopy Plan three-week boost mitomycin-C with cytarabine Cystoscopy clear Benadryl prescription provided Does have weakness of stream Trial finasteride Discussed bladder biopsy resolved Follow-up three-month office cysto with boost mitomycin-C plus cytarabine 03/15 repeat bladder biopsy negative Bladder cancer - high grade invasive - [id number] 09/14 Cystoscopy - 06/15 NAD Bladder Biopsy - 03/15 NAD Did have rash after final dose of mitomycin-C. Trial Benadryl 50 mg. Repeat TURBT 11/15 - induction mitomycin-C with cytarabine Bladder, biopsy: - High grade urothelial carcinoma; definitive invasion not seen; background acute and chronic cystitis. - Muscularis propria present Cystoscopy left sidewall bladder cancer 3 cm Initial evaluation for presentation with gross hematuria Prostate volume 50 cc 60 year pack per day smoking history Imaging - CT Urogram 07/15 Polypoid mass slightly hyperdense on precontrast imaging adherent to the left bladder wall measures 3.0 x 3.3 x 2.7 cm Initial Surgical specimen 10/14 Bladder, transurethral resection: High-grade papillary urothelial carcinoma, invasive into muscularis propria. Histologic type: Papillary urothelial carcinoma Histologic grade: High grade Muscularis propria: Present Extent of invasion: Muscularis propria Lymphovascular invasion: Not identified [facility] Medical History (Updated 05/14/25 @ 14:52 by Eden Self MD) Hematuria Bladder mass NSVT (nonsustained ventricular tachycardia) RBBB (right bundle branch block) Bladder cancer BPH (benign prostatic hyperplasia) Elevated LFTs Essential hypertension Normally functioning cardiac pacemaker present History of GI bleed Gout HTN (hypertension) Hyperlipidemia Surgical History H/O transurethral resection of bladder tumor (TURBT) History of surgical removal of pilonidal cyst History of esophagogastroduodenoscopy (EGD) History of permanent cardiac pacemaker placement (~01/2016) Family History Father No problems noted. Mother No problems noted. Social History Housing: House Are you a primary clinical manager home care to a significant other at home: No Do you presently have visiting nurse or other home services: No Alcohol intake: current Alcohol intake frequency: 0-2 drinks per day Patient Tobacco Use Status: Current someday Tobacco user Tobacco use type: Cigar Years Smoked: 20 e-Cigarette/Vaping Use: Never Used service: No Current occupational status: retired Current occupational exposures/hazards: No Cognitive needs: No Hearing needs: No Vision needs: Yes Review of Systems Const Denies chills and Denies fever(s) Card Reports no additional complaints and Denies syncope Resp Denies cough GI Denies abdominal pain and Denies heartburn Reports as per HPI and Denies change in libido Neuro Denies syncope Psych Denies change in libido Endo Denies change in libido Physical Exam Const General: cooperative, healthy appearing, comfortable and no acute distress Orientation/consciousness: patient oriented x3 HEENT Face and sinus: Yes normal facial exam Mouth: moist mucous membranes Neck Neck: Yes normal visual inspection, Yes full ROM and Yes trachea midline Chest Chest palpation & inspection: normal inspection of the chest Resp Effort & Inspection: normal respiratory effort, able to speak in complete sentences and no respiratory distress GI Inspection: Yes normal to inspection Back/Spine/Pelvis Cervical Spine: normal cervical lordosis Thoracic/Lumbar Spine: thoracic and lumbar spine normal to inspection Skin General skin exam: no rashes or lesions noted Neuro General: patient oriented x3, gait normal, tone normal and moves all extremities Extrem General: Yes normal to inspection and Yes capillary refill normal Office Procedures Cystoscopy Consent Discussed risk and benefit or proposed procedure with the patient. Information consent for procedure given to the patient. Discussed technical aspects, risks, benefits and alternatives in full. Addressed all of the patient's questions and concerns regarding the procedure. The patient demonstrated knowledge and understanding. They wish to proceed with this procedure. Preparation The patient was prepped in the usual manner. A video coordinator was present and in the room. Genitalia was prepped with betadine solution in a sterile manner. Lidoc barbie Jelly 2% was placed into the urethra and 16Fr flexible Olympus cystoscope was inserted into the meatus after adequate lubrication. Procedure Cystoscopy performed using a disposable Urovue digital 16 [place] cystoscope. Meatus circumcised Urethra anterior and posterior urethra normal Prostatic Urethra trilobar hyperplasia Bladder examination with retroflexion of cystoscope Bladder Orifices normal shape and position Bladder Capacity Normal Trabeculations grade 2/3 Cellule Formation None Diverticulum Formation None Mucosal Erythema None Bladder Tumor None - evidence of prior resection [id number] DISPOSABLE SCOPE URO-G FLEXIBLE SCOPE Procedure code (CPT) selection complete Office Meds lidocaine HCl 2 % mucosal jelly in applicator Performing Provider: Salomón Page MD Performing Location: [facility] Administered by: Lilliana Rollins RN on 06/11/25 11:10 Dose Route Admin Location Dispensed Lot Number Expiration Date [facility] Sheet Finisher 10 mL intra-urethral 10 mL nitrofurantoin monohydrate/macrocrystals 100 mg capsule Performing Provider: Salomón Page MD Performing Location: [facility] Administered by: Lilliana Rollins RN on 06/11/25 11:10 Dose Route Admin Location Dispensed Lot Number Expiration Date [place] Sheet Finisher 100 mg PO 1 cap Assessment & Plan Assessment & Plan (1) Enlarged prostate: Code(s): N40.0 - Benign prostatic hyperplasia without lower urinary tract symptoms Category: Medical (2) Bladder cancer: Comment: - high-grade invasive s/p TURBT with mitomycin and cytarabine 09/08/2024 f/u with Dr. Page Code(s): C67.9 - Malignant neoplasm of bladder, unspecified Category: Medical Plan Three-week post mitomycin-C and cytarabine Three-month follow-up check cysto office Orders: Orders AMB Cystoscopy Today N20.0 - Calculus of kidney, N40.0 - Benign prostatic hyperplasia without lower urinary tract symptoms, R33.9 - Retention of urine, unspecified Medications: New finasteride 5 mg PO DAILY 90 tabs 1RF 90 days N40.0 - Benign prostatic hyperplasia without lower urinary tract symptoms diphenhydramine HCl (Benadryl Allergy) Take 1 tablet 4 hours prior and 4 hours after bladder infusion 50 mg PO Q8H PRN 30 tabs 0RF rash 30 days C67.9 - Malignant neoplasm of bladder, unspecified Patient Instructions: This note is constructed using voice recognition software. While every effort has been made to ensure accuracy federal district law clerk errors may have been included. Imaging studies, laboratory and physical exam results were discussed and reviewed in detail. No major barriers to patient understanding were identified. An opportunity to ask questions regarding the treatment plan was provided. All questions were answered. The patient expressed understanding and agreement with the above treatment plan. The patient is aware they should contact our office by phone for worsening of their current condition or the appearance of new urologic symptoms. Compliance is encouraged with any medications and followup testing that is ordered. It is a privilege to participate in the urologic care of your patient. If you have any questions or concerns regarding treatment for the above conditions, or other urologic issues, please do not hesitate to contact me. The office telephone contact is [phone]. Sincerely, Dr Salomón Page MD, [facility] U[facility] Compassionate Specialist Care for the Genitourinary System Coding Level of Care Code Est Pt Level 4 (70915) Diagnoses Enlarged prostate N40.0 Bladder cancer C67.9 CPT Codes Cystoscopy - CPT: 73414-[id number] ([id number])
--- OUTSIDE RECORDS SUMMARY | 2025-06-11 12:16 | XMS_ITS | Clinical Summary ---
Author Organization 175 [facility] Address [address] [place] [address] Phone Care Team Providers Care Trailer Technician Name Role Phone Eden Self MD Primary Care Provider [phone] Allergies Active Allergy Reactions Criticality Noted Date [...] Encounters Date Type Department Care Team Description 05/27/2025 10:00 AM EDT Office Visit [facility]opedic [place] [address] [phone] Eliecer Reza DPM Hypertrophy of nail (Primary Dx); Xerosis of skin 03/26/2025 1:45 PM EDT Office Visit Orthopedic [facility] [address] [phone] Eliecer Reza DPM Hypertrophy of nail (Primary Dx); Xerosis [...] Upcoming Encounters Date Type Department Care Team ([facility] st Contact Info) Description 08/05/2025 9:45 AM EDT Office Visit Orthopedic [place] [address] [phone] Eliecer Reza, DPM [address] [address] Health Maintenance Due Date Last Done Comments Pneumococcal Vaccine: 50+ Ye ars (1 of 2 - PCV) 1959 Zoster Vaccines (1 of 2) 1990 RSV [...] age to complete this topic Insurance [facility] [address] [place] [address] Care Teams Trailer Technician Relationship Specialty Start Date End Date Eden Self MD [address] [place] [address] PCP - General 05/09/23
== END 2025-06-11 11:24 | disposition home or self-care (01) ==
LOC: HO.HUSH 10:44
PROVIDERS: PCP Internal Medicine; Visit Provider Urology
DX: N20.0 Calculus of kidney (principal); R33.9 Retention of urine, unspecified; N40.0 Benign prostatic hyperplasia without lower urinary tract symptoms; C67.9 Malignant neoplasm of bladder, unspecified; Z13.9 Encounter for screening, unspecified
CPT/HCPCS: 52000

== ENCOUNTER 2025-07-01 09:52 | Outpatient (REF) | payer MEDICARE, OTHER, SELFPAY ==
[2025-07-01 10:04] LABS: Appearance Urine Clear; Glucose Urine UA Negative (Negative); PH 5.5 (5.0-9.0); Specific Gravity - Urine 1.015 (1.005-1.025)
== END 2025-07-01 09:53 | disposition home or self-care (01) ==
LOC: HO.LNP 09:52
PROVIDERS: Visit Provider Urology
DX: C67.9 Malignant neoplasm of bladder, unspecified (principal)
CPT/HCPCS: 81003

== ENCOUNTER 2025-08-14 08:00 | Outpatient (REF) | payer MEDICARE, OTHER, SELFPAY ==
--- OUTSIDE RECORDS SUMMARY | 2025-08-14 08:17 | XMS_ITS | Clinical Summary ---
Author Organization 175 [facility] Address [address] [place] [address] Phone Care Team Providers Care Manager Meeting Name Role Phone Eden Self MD Primary Care Provider Allergies Active Allergy Reactions Criticality Noted Date [...] Encounters Date Type Department Care Team Description 08/05/2025 9:45 AM EDT Office Visit [facility] [place] [address] [phone] Eliecer Reza DPM Hypertrophy of nail (Primary Dx); Xerosis of skin 05/27/2025 10:00 AM EDT Office Visit [facility] [address] [phone] Eliecer Reza DPM Hypertrophy of nail (Primary Dx); Xerosis of skin from Last 3 Months Social History Tobacco [...] Care Team (Late st Contact Info) Description 10/05/2025 9:15 AM EST Office Visit Orthopedic Surgery - [place] [address] [phone] Eliecer Reza, DPM [address] [phone] Health Maintenance Due Date Last Done Comments Pneumococcal Vaccine: 50+ Ye ars (1 of 2 - PCV) 1959 Zoster Vaccines (1 of 2) 1990 RSV Immunization Adult Patie nts (1 - 1-dose 75+ series) 2015 Cholesterol Screening (Lipid Panel) 11/16/2023 Falls Risk Assessment 11/16/2023 Medicare Annual Wellness Visit 11/16/2023 Social Influencers of Health Screening 11/16/2023 Hypertension/CHF/CAD Annual BMP Blood Test 08/20/2024 Depression Screening 10/22/2024 COVID-19 Vaccine (2 - 2024-2 6 season) 2025 07/11/2022 Influenza Vaccine (#1) 2025 DTaP,Tdap,and Td Vaccines [...] patient's age to complete this topic Insurance MEDICARE [facility] [address] [place] [address] Care Teams Manager Meeting Relationship Specialty Start Date End Date Eden Self MD [address] [facility] [place] [address] PCP - General 05/09/23
[2025-08-14 08:20] LABS: MANUAL DIFF FLAG NO
[2025-08-14 08:35] LABS: Hematocrit 42.1 % (42.0-52.0); Hemoglobin 13.8 g/dl (14.0-18.0); Imm Gran Abs Auto 0.06 X10*3/uL (0.00-0.03); Imm Gran Pct Auto 1.1 % (0.0-0.4); Lymphocytes Absolute Auto 1.7 X10*3/uL (1.2-4.9); Mean Corpuscular HGB Conc 32.8 g/dl (31.0-36.0); Mean Corpuscular Hemoglobin 32.2 pg (27.0-33.0); Mean Corpuscular Volume 98.4 fL (80.0-98.0); NRBC Abs Auto 0.000 X10*3/uL (0.0-0.012); NRBC Pct Auto 0.0 /100WBC (0.0-0.2); Platelet Count 206 X10*3/uL (160-400); Red Blood Count 4.28 X10*6/uL (4.60-5.80); White Blood Count 5.7 X10*3/uL (4.8-10.8)
[2025-08-14 09:04] LABS: Alanine Aminotransferase 36 U/L (0-40); Albumin Level 3.7 g/dL (3.5-5.0); Alkaline Phosphatase 106 U/L (39-117); Anion Gap 9 (12-20); Aspartate Amino Transferase 33 U/L (5-37); Blood Urea Nitrogen 19 mg/dL (9-16); Calcium 8.7 mg/dL (8.4-10.2); Carbon Dioxide 24 mmol/L (22-29); Chloride 110 mmol/L (96-108); Cholesterol 117 mg/dL (<200); Estimated Glomerular Filt Rate 47; HDL Cholesterol 32 mg/dL (>40); Potassium 4.4 mmol/L (3.3-5.1); Sodium 139 mmol/L (135-145); Total Protein 6.5 g/dL (6.5-8.0); Triglycerides 100 mg/dL (<150)
== END 2025-08-14 08:01 | disposition home or self-care (01) ==
LOC: HO.LAB 08:00
PROVIDERS: PCP Internal Medicine; Visit Provider Internal Medicine
DX: I47.29 Other ventricular tachycardia (principal); I10 Essential (primary) hypertension; R73.9 Hyperglycemia, unspecified
CPT/HCPCS: 36415; 80053; 80061; 83036; 85025

== ENCOUNTER 2025-08-17 10:30 | Outpatient (AMB) | payer MEDICARE, OTHER, SELFPAY ==
--- NOTE | 2025-08-17 10:41 | A.OFFPC_ITS ---
Vital Signs 08/17/25 10:43 Height 6 ft 2 in Weight 244 lb BMI 31.3 BP 118/58 L Blood Pressure Location Lt brachial Position Sitting Respiration 17 Pulse 69 Pulse Source Pulse Oximeter Temp 97.7 F Temp Source Oral Pulse Oximetry (%) 97 Oxygen Delivery Method Room Air Intake Visit Reasons: 3 months f/up Intake Note: Pt is here today for 3 months follow up visit. Allergies nut - unspecified (NUTS) Allergy (Severe, Verified 08/17/25 10:56) ANAPHYLAXIS Medication List - Last Reconciled 08/17/25 by Eden Self MD allopurinol 200 mg (2 x 100 mg) PO DAILY diltiazem HCl CD 120 mg PO DAILY diphenhydramine HCl (Benadryl Allergy) 50 mg PO Q8H PRN 30 days finasteride 5 mg PO DAILY 90 days simvastatin 5 mg PO BEDTIME tamsulosin 0.4 mg PO BEDTIME trimethoprim 100 mg PO DAILY 30 days vit C,E-Jn-kamwk-lutein-zeaxan 250-90-40-1 mg (PreserVision AREDS-2) 1 tab PO BID Tobacco use date assessed: 08/17/25 Dental Screening Dental Screen Date: 04/16/25 HPI 3 months f/up HPI Details Patient presents for the follow-up. He has been received chemotherapy for bladder cancer and tolerating well. Patient is established with Dr. Page. Hyperlipidemia is controlled on current medication. Patient moved to assisted living facility recently and has been feeling more tired, sleeping longer hours, being less socially engaged and feeling more isolated and depressed. Patient denies suicide ideation change in appetite. He has not been able to read books because of worsening macular degeneration. [facility] Medical History (Updated 08/17/25 @ 16:40 by Eden Self MD) Hematuria Bladder mass NSVT (nonsustained ventricular tachycardia) RBBB (right bundle branch block) Bladder cancer BPH (benign prostatic hyperplasia) Elevated LFTs Essential hypertension Normally functioning cardiac pacemaker present History of GI bleed Gout HTN (hypertension) Hyperlipidemia Surgical History H/O transurethral resection of bladder tumor (TURBT) History of surgical removal of pilonidal cyst History of esophagogastroduodenoscopy (EGD) History of permanent cardiac pacemaker placement (~01/2016) Family History Father No problems noted. Mother No problems noted. Social History Housing: House Are you a primary care administrative tech to a significant other at home: No Do you presently have visiting nurse or other home services: No Alcohol intake: current Alcohol intake frequency: 0-2 drinks per day Patient Tobacco Use Status: Current someday Tobacco user Tobacco use type: Cigar Years Smoked: 20 e-Cigarette/Vaping Use: Never Used service: No Current occupational status: retired Current occupational exposures/hazards: No Cognitive needs: No Hearing needs: No Vision needs: Yes Questionnaire PHQ-9 Over the last 2 weeks, how often have you been bothered by any of the following problems? 1. Little interest or pleasure in doing things: more than half the days 2. Feeling down, depressed, or hopeless: not at all 3. Trouble falling or staying asleep, or sleeping too much: several days 4. Feeling tired or having little energy: nearly every day 5. Poor appetite or overeating: nearly every day 6. Feeling bad about yourself - or that you are a failure or have let yourself or your family down: not at all 7. Trouble concentrating on things, such as reading the newspaper or watching television: nearly every day 8. Moving or speaking so slowly that other people could have noticed. Or the opposite - being so fidgety or restless that you have been moving around a lot more than usual: nearly every day 9. Thoughts that you would be better off or of hurting yourself in some way: not at all Total score: 15 Depression Screening Interpretation: Positive (Patient declined counseling or treatment) Depression Screening Follow-up: Existing condition and Declines treatment Depression Screening Done: Yes Source: Developed by Drs. Pancho Diop, Mindy Walton, Trent Soria and colleagues, with an educational carrie from [employer]. Thrive Questionnaire Date Thrive assessed: 11/14/24 I am a: Parent/Caregiver What is your living situation today?: I have a steady place to live Within the past 12 months, did the food you bought not last and you didn't have the money to get more?: Never true Within the past 12 months, did you worry whether your food would run out before you got money to buy more?: Never true Do you have trouble paying for medicines?: No Do you have trouble getting transportation to medical appointments?: No Do you have trouble paying your heating and electricity bill?: I choose not to answer this question Do you have trouble taking care of your child, family member or friend?: No Do you have trouble with day-to-day activities such as bathing, preparing meals, shopping, managing finances, etc.?: Yes Are you currently unemployed and looking for a job?: No Are you interested in more education?: No Please select the resources that you would like help with: None Currently or been in a relationship where the following occur: No concerns reported THRIVE Score: 0 HARDIK-7 AMB Questionnaire HARDIK-7 Date HARDIK - 7 assessed: 11/14/24 Source: Developed by Drs. Pancho Diop, Mindy Walton, Trent Soria and colleagues, with an educational carrie from [employer]. Review of Systems Const All systems reviewed & are unremarkable except as noted in HPI and below Eyes Reports no additional complaints ENT Reports no additional complaints Card Reports no additional complaints Resp Reports no additional complaints GI Reports no additional complaints Reports no additional complaints Physical exam (Primary Care) Vital Signs: Last Vital Signs Temp 97.7 F 08/17/25 10:43 Pulse 69 08/17/25 10:43 Resp 17 08/17/25 10:43 BP 118/58 L 08/17/25 10:43 Pulse Ox 97 08/17/25 10:43 Oxygen Delivery Method Room Air 08/17/25 10:43 BMI result Body Mass Index 31.3 Tobacco/Smoking Status: Tobacco use Status Tobacco use date assessed 08/17/25 08/17/25 10:57 Patient Tobacco Use Status Current someday Tobacco 08/17/25 10:41 Tobacco use type Cigar 08/17/25 10:41 e-Cigarette/Vaping Use Never Used 08/17/25 10:41 PHQ-9: PHQ-9 Score PHQ-9: Total score 15 08/17/25 10:57 Depression Screening Interpretation: Positive (Patient declined counseling or treatment) Depression Screening Follow-up: Existing condition and Declines treatment Thrive Assessment: Date of Thrive Assessment Date Thrive assessed 11/14/24 08/17/25 10:41 Currently or been in a relationship where the following occur: No concerns reported Const General: no acute distress HENMT Head: Yes normal to inspection Mouth: Normal oral and palatal mucosa present Eyes General: appearance normal, both eyes and all related structures Resp Effort & Inspection: normal respiratory effort Auscultation: clear to auscultation bilaterally Cardio Rhythm: regular rhythm Heart sounds: S1 normal heart sound present and S2 normal heart sound present GI Inspection: Yes normal to inspection Palpation (GI): Soft to palpation Percussion: Yes normal to percussion Coding Level of Care Code Est Pt Level 4 (49546) Diagnoses Hyperglycemia R73.9 Bladder cancer C67.9 NSVT (nonsustained ventricular tachycardia) I47.29 CKD (chronic kidney disease) stage 3, GFR 30-59 ml/min N18.30 Anxiety and depression F41.9; F32.A Assessment & Plan Assessment & Plan (1) Hyperglycemia: Code(s): R73.9 - Hyperglycemia, unspecified Category: Medical Plan: A1c is 5.6, continue ADA diet (2) Bladder cancer: Comment: - high-grade invasive s/p TURBT with mitomycin and cytarabine 09/08/2024 f/u with Dr. Page Code(s): C67.9 - Malignant neoplasm of bladder, unspecified Category: Medical Plan: Follow-up with urology (3) NSVT (nonsustained ventricular tachycardia): Comment: has pacemaker-follows w/[facility], on Cardizem Code(s): I47.29 - Other ventricular tachycardia Category: Medical Plan: Continue Cardizem follow-up with Cardiology (4) CKD (chronic kidney disease) stage 3, GFR 30-59 ml/min: Code(s): N18.30 - Chronic kidney disease, stage 3 unspecified Category: Medical Plan: Monitor renal function avoid nephrotoxins (5) Anxiety and depression: Code(s): F41.9 - Anxiety disorder, unspecified; F32.A - Depression, unspecified Category: Medical Plan: Patient declined counseling and treatment. He was advised to get more physically active and socially engaged with his friends and family Orders: Orders Comprehensive [place]. Panel Fast 4 Months C67.9 - Malignant neoplasm of bladder, unspecified, I10 - Essential (primary) hypertension, N18.30 - Chronic kidney disease, stage 3 unspecified, R73.9 - Hyperglycemia, unspecified Complete Blood Count Auto Diff 4 Months C67.9 - Malignant neoplasm of bladder, unspecified, I10 - Essential (primary) hypertension, N18.30 - Chronic kidney disease, stage 3 unspecified, R73.9 - Hyperglycemia, unspecified Hemoglobin A1c 4 Months C67.9 - Malignant neoplasm of bladder, unspecified, I10 - Essential (primary) hypertension, N18.30 - Chronic kidney disease, stage 3 unspecified, R73.9 - Hyperglycemia, unspecified
[2025-08-17 10:43] VITALS: BP 118/58; PULSE 69; RESP 17; TEMP 36.5; O2SAT 97; BMI 31.3
--- OUTSIDE RECORDS SUMMARY | 2025-08-17 12:49 | XMS_ITS | Clinical Summary ---
Author Organization 175 [facility] Address [address] [place] [address] Phone Care Team Providers Care Choir Member Name Role Phone Eden Self MD Primary Care Provider [phone] Allergies Active Allergy Reactions Criticality Noted Date [...] 08/05/2025 9:45 AM EDT Office Visit Orthopedic [place] [address] [phone] Eliecer Reza DPM Hypertrophy of nail (Primary Dx); Xerosis of skin 05/27/2025 10:00 AM EDT Office Visit [facility] [address] [phone] Eliecer Reza DPM Hypertrophy of nail (Primary [...] AM EST Office Visit Orthopedic Surgery - [place] [address] [phone] Eliecer Reza, DPM [address] [phone] Health Maintenance Due Date Last [...] age to complete this topic Insurance MEDICARE [facility] [address] [place] [address] Care Teams Choir Member Relationship Specialty Start Date End Date Eden Self MD [address] [facility] [place] [address] PCP - General 05/09/23
== END 2025-08-17 11:26 | disposition home or self-care (01) ==
LOC: HO.HMCC 10:31
PROVIDERS: PCP Internal Medicine; Visit Provider Internal Medicine
DX: R73.9 Hyperglycemia, unspecified (principal); C67.9 Malignant neoplasm of bladder, unspecified; I47.29 Other ventricular tachycardia; N18.30 Chronic kidney disease, stage 3 unspecified; F41.9 Anxiety disorder, unspecified; F32.A Depression, unspecified

== ENCOUNTER → 2025-08-17 10:30 | Outpatient (BNVA) | payer MEDICARE, OTHER, SELFPAY | PROVIDERS: PCP Internal Medicine; Visit Provider Internal Medicine | DX: R73.9 Hyperglycemia, unspecified (principal); C67.9 Malignant neoplasm of bladder, unspecified; I47.19 Other supraventricular tachycardia; N18.30 Chronic kidney disease, stage 3 unspecified; F41.9 Anxiety disorder, unspecified; F32.A Depression, unspecified; F17.200 Nicotine dependence, unspecified, uncomplicated; Z71.6 Tobacco abuse counseling | CPT/HCPCS: 99212 ==

== ENCOUNTER → 2025-08-19 23:59 | Outpatient (BNV) | payer MEDICARE, OTHER, SELFPAY ==
--- NOTE | 2025-08-26 11:28 | MHC.OFFVIS ---
Intake Visit Reasons: Remote device check-[facility] Allergies nut - unspecified (NUTS) Allergy (Severe, Verified 08/17/25 10:56) ANAPHYLAXIS PFS Medical History (Updated 08/17/25 @ 16:40 by Eden Self MD) Hematuria Bladder mass NSVT (nonsustained ventricular tachycardia) RBBB (right bundle branch block) Bladder cancer BPH (benign prostatic hyperplasia) Elevated LFTs Essential hypertension Normally functioning cardiac pacemaker present History of GI bleed Gout HTN (hypertension) Hyperlipidemia Surgical History H/O transurethral resection of bladder tumor (TURBT) History of surgical removal of pilonidal cyst History of esophagogastroduodenoscopy (EGD) History of permanent cardiac pacemaker placement (~01/2016) Family History Father No problems noted. Mother No problems noted. Social History Housing: House Are you a primary career information specialist to a significant other at home: No Do you presently have visiting nurse or other home services: No Alcohol intake: current Alcohol intake frequency: 0-2 drinks per day Patient Tobacco Use Status: Current someday Tobacco user Tobacco use type: Cigar Years Smoked: 20 e-Cigarette/Vaping Use: Never Used service: No Current occupational status: retired Current occupational exposures/hazards: No Cognitive needs: No Hearing needs: No Vision needs: Yes Office Procedures Cardiac Device Check Cardiac Device Check Details: Date of service- 08/19/2025 ; Battery life 1.4 years; normal lead parameters; AP 32%; SOCIAL SECURITY BENEFITS INTERVIEWER 56%; brief atrial tachycardia episodes; otherwise no significant arrhythmias. Overall normal device function. [id number] Cardiac Device Interrogation, pacemaker Procedure code (CPT) selection complete Assessment & Plan Assessment & Plan (1) Encounter for interrogation of cardiac pacemaker: Comment: 2015, Code(s): Z45.018 - Encounter for adjustment and management of other part of cardiac pacemaker Category: Medical (2) Heart block: Comment: pacemaker 2015 Code(s): I45.9 - Conduction disorder, unspecified Category: Medical Plan x Coding Level of Care Code Procedure Only Diagnoses Encounter for interrogation of cardiac pacemaker Z45.018 Heart block I45.9 CPT Codes Cardiac Device Check - Cardiac Device 12: [id number] Cardiac Device Interrogation, pacemaker ([id number])
== END ==
PROVIDERS: PCP Internal Medicine; Visit Provider Internal Medicine
DX: I45.9 Conduction disorder, unspecified (principal); Z95.0 Presence of cardiac pacemaker
CPT/HCPCS: 93294

== ENCOUNTER 2025-09-10 09:45 | Outpatient (REF) | payer MEDICARE, OTHER, SELFPAY | END 2025-09-10 09:46 | disposition home or self-care (01) | LOC: HO.LAB 09:45 | PROVIDERS: PCP Internal Medicine; Visit Provider Urology | DX: N32.0 Bladder-neck obstruction (principal); C67.9 Malignant neoplasm of bladder, unspecified; R39.12 Poor urinary stream; Z79.899 Other long term (current) drug therapy | CPT/HCPCS: 52000; 88121; 99212 ==

== ENCOUNTER 2025-09-10 09:45 | Outpatient (AMB) | payer MEDICARE, OTHER, SELFPAY ==
--- NOTE | 2025-09-10 10:19 | MHC.OFFVIS ---
Intake Visit Reasons: cysto Intake Note: Patient is present for cystoscopy Urology Medication:ALLOPURINOL,TAMSULOSIN,VIT-C, FINASTERIDE Antibiotic Allergy:NONE Blood Thinner:NONE CYSTOSCOPY : LOT# [id number] EXP 03/30/2028 Ship Officer Required: No Accompanied by: Spouse Allergies nut - unspecified (NUTS) Allergy (Severe, Verified 09/10/25 10:21) ANAPHYLAXIS HPI Comments Details: Ricardo is a pleasant male. He is a patient of Dr. Self. He seen for the following urologic conditions - high-grade bladder cancer - lower urinary tract symptoms weakness of stream Check cystoscopy Has been on finasteride for weakness of stream No abnormality seen Check fish Benefit from finasteride 06/15 3 week boost [facility] 03/15 repeat bladder biopsy negative 12/16 6 week induction [facility] Bladder cancer - high grade invasive - [id number] 09/14 Cystoscopy - 06/15 NAD Bladder Biopsy - 03/15 NAD Did have rash after final dose of mitomycin-C. Trial Benadryl 50 mg. Repeat TURBT 11/15 - induction mitomycin-C with cytarabine Bladder, biopsy: - High grade urothelial carcinoma; definitive invasion not seen; background acute and chronic cystitis. - Muscularis propria present Cystoscopy left sidewall bladder cancer 3 cm Initial evaluation for presentation with gross hematuria Prostate volume 50 cc 60 year pack per day smoking history Imaging - CT Urogram 07/15 Polypoid mass slightly hyperdense on precontrast imaging adherent to the left bladder wall measures 3.0 x 3.3 x 2.7 cm Initial Surgical specimen 10/14 Bladder, transurethral resection: High-grade papillary urothelial carcinoma, invasive into muscularis propria. Histologic type: Papillary urothelial carcinoma Histologic grade: High grade Muscularis propria: Present Extent of invasion: Muscularis propria Lymphovascular invasion: Not identified [facility] Medical History (Updated 09/10/25 @ 10:40 by Salomón Page MD) Hematuria Bladder mass NSVT (nonsustained ventricular tachycardia) RBBB (right bundle branch block) Bladder cancer BPH (benign prostatic hyperplasia) Elevated LFTs Essential hypertension Normally functioning cardiac pacemaker present History of GI bleed Gout HTN (hypertension) Hyperlipidemia Surgical History H/O transurethral resection of bladder tumor (TURBT) History of surgical removal of pilonidal cyst History of esophagogastroduodenoscopy (EGD) History of permanent cardiac pacemaker placement (~01/2016) Family History Father No problems noted. Mother No problems noted. Social History Housing: House Are you a primary respiratory care program director to a significant other at home: No Do you presently have visiting nurse or other home services: No Alcohol intake: current Alcohol intake frequency: 0-2 drinks per day Patient Tobacco Use Status: Current someday Tobacco user Tobacco use type: Cigar Years Smoked: 20 e-Cigarette/Vaping Use: Never Used service: No Current occupational status: retired Current occupational exposures/hazards: No Cognitive needs: No Hearing needs: No Vision needs: Yes Office Procedures Cystoscopy Consent Discussed risk and benefit or proposed procedure with the patient. Information consent for procedure given to the patient. Discussed technical aspects, risks, benefits and alternatives in full. Addressed all of the patient's questions and concerns regarding the procedure. The patient demonstrated knowledge and understanding. They wish to proceed with this procedure. Preparation The patient was prepped in the usual manner. A water mechanic was present and in the room. Genitalia was prepped with betadine solution in a sterile manner. Lidocaine Jelly 2% was placed into the urethra and 16Fr flexible Olympus cystoscope was inserted into the meatus after adequate lubrication. Procedure Consent confirmed Cystoscopy performed using a disposable Urovue digital 16 [place]orean cystoscope. Meatus circumcised Urethra anterior and posterior urethra normal Prostatic Urethra trilobar hyperplasia Bladder examination with retroflexion of cystoscope Bladder Orifices normal shape and position Bladder Capacity large Trabeculations grade 2/3 Cellule Formation yes Diverticulum Formation no Mucosal Erythema healed Bladder Tumor None [id number] DISPOSABLE SCOPE URO-G FLEXIBLE SCOPE Procedure code (CPT) selection complete Office Meds lidocaine HCl 2 % mucosal jelly in applicator Performing Provider: Salomón Page MD Performing [facility] Administered by: Michele Hong LPN on 09/10/25 10:29 Dose Route Admin Location Dispensed Lot Number Expiration Date [facility] Handstitching Machine Collar Feller 10 mL intra-urethral 10 mL nitrofurantoin monohydrate/macrocrystals 100 mg capsule Performing Provider: Salomón Page MD Performing Location: [facility] Administered by: Michele Hong LPN on 09/10/25 10:29 Dose Route Admin Location Dispensed Lot Number Expiration Date [employer] Handstitching Machine Collar Feller 100 mg PO 1 cap Results AMB Urinalysis, Automated UA Leukoctes 0 Elizabeth/uL Last Edit by Elsa Colon, CCMA on 09/10/25 10:25 UA Nitrite Negative Last Edit by Elsa Colon, CCMA on 09/10/25 10:25 UA Urobilinogen 0.2 mg/dL Last Edit by Elsa Colon, CCMA on 09/10/25 10:25 UA Protein 15 mg/dL Last Edit by Elsa Colon, CCMA on 09/10/25 10:25 UA pH 6.0 Last Edit by Elsa Colon, CCMA on 09/10/25 10:25 UA Blood 0 Siva/uL Last Edit by Elsa Colon, CCMA on 09/10/25 10:25 UA Specific [place] 1.025 Last Edit by Elsa Colon, CCMA on 09/10/25 10:25 UA Ketone Negative Last Edit by Elsa Colon, CCMA on 09/10/25 10:25 UA Bilirubin 0 mg/dL Last Edit by Elsa Colon, [facility] on 09/10/25 10:25 UA Glucose 0 mg/dL Last Edit by Elsa Colon, [facility] on 09/10/25 10:25 Results Reviewed Results Reviewed: Laboratory Last Values Urine pH (Auto) 6.0 09/10/25 10:24 Specific [place] (Auto) 1.025 09/10/25 10:24 Urine Protein (Auto) 15 mg/dL 09/10/25 10:24 Glucose (UA)(Auto) 0 mg/dL 09/10/25 10:24 Urine Ketones (Auto) Negative 09/10/25 10:24 Urine Blood (Auto) 0 Siva/uL 09/10/25 10:24 Urine Nitrite (Auto) Negative 09/10/25 10:24 Urine Bilirubin (Auto) 0 mg/dL 09/10/25 10:24 Urine Urobilinogen (Auto) 0.2 mg/dL 09/10/25 10:24 Leukocyte Esterase (Auto) 0 Elizabeth/uL 09/10/25 10:24 Assessment & Plan Assessment & Plan (1) Bladder cancer: Comment: - high-grade invasive s/p TURBT with mitomycin and cytarabine 09/08/2024 f/u with Dr. Page Code(s): C67.9 - Malignant neoplasm of bladder, unspecified Category: Medical (2) Bladder outlet obstruction: Code(s): N32.0 - Bladder-neck obstruction Category: Medical (3) Weak urinary stream: Code(s): R39.12 - Poor urinary stream Category: Medical Plan Continue finasteride Three-month follow-up check cystoscopy Orders: Orders FISH Bladder Cancer Today C67.9 - Malignant neoplasm of bladder, unspecified AMB Cystoscopy Today N40.0 - Benign prostatic hyperplasia without lower urinary tract symptoms, R33.9 - Retention of urine, unspecified Medications: Discontinued trimethoprim Discontinued Reason: Patient Completed Course 100 mg PO DAILY 30 days 30 tabs 2RF Patient Instructions: This note is constructed using voice recognition software. While every effort has been made to ensure accuracy computer technology teacher errors may have been included. Imaging studies, laboratory and physical exam results were discussed and reviewed in detail. No major barriers to patient understanding were identified. An opportunity to ask questions regarding the treatment plan was provided. All questions were answered. The patient expressed understanding and agreement with the above treatment plan. The patient is aware they should contact our office by phone for worsening of their current condition or the appearance of new urologic symptoms. Compliance is encouraged with any medications and followup testing that is ordered. It is a privilege to participate in the urologic care of your patient. If you have any questions or concerns regarding treatment for the above conditions, or other urologic issues, please do not hesitate to contact me. The office telephone contact is [phone]. Sincerely, Dr Salomón Page MD, [facility] - Urology Compassionate Specialist Care for the Genitourinary System Coding Level of Care Code Est Pt Level 3 (13184) Complex EM visit Add On G2211 Diagnoses Bladder cancer C67.9 Bladder outlet obstruction N32.0 Weak urinary stream R39.12 CPT Codes Cystoscopy - CPT: 55763-[id number] ([id number])
== END 2025-09-10 10:44 | disposition home or self-care (01) ==
LOC: HO.HUSH 09:46
PROVIDERS: PCP Internal Medicine; Visit Provider Urology
DX: C67.9 Malignant neoplasm of bladder, unspecified (principal); N32.0 Bladder-neck obstruction; R39.12 Poor urinary stream
CPT/HCPCS: 52000; 99213

== ENCOUNTER → 2025-09-13 15:40 | Outpatient (BNV) | payer MEDICARE, OTHER, SELFPAY | PROVIDERS: PCP Internal Medicine; Visit Provider Internal Medicine | DX: I45.9 Conduction disorder, unspecified (principal); Z95.0 Presence of cardiac pacemaker | CPT/HCPCS: 93294 ==